=== PATIENT | male | born 1980 | race Caucasian/White ===

== ENCOUNTER 2016-07-17 05:59 | Outpatient (CLI) | payer OTHER ==
[~2016-07-17] VITALS: Ht 167.6 cm; Wt 109.1 kg
[~2016-07-17 05:59] MED LIST: AMPI500C9 PO; CIPR-225 PO; CIPR500T4 PO; ERTA1VIA3 IV; HYDR-3730 PO; HYDR-3816 PO; HYDR-757 PO; IBUP-2055 PO; L.AC1CAP6 PO; LEVO750T39 PO; LEVO750T6 PO; LEVO750T9 PO; LINE600T5 PO; METR500T PO; METR500T21 PO; NAPR500T3 PO; PROM25TA14 PO
--- OUTSIDE RECORDS SUMMARY | 2016-07-17 06:03 | XMS REPORT | Continuity of Care Document ---
Author Author [facility] Organization [facility] Address Unknown Phone Unavailable Care Team Providers Care Security Intern Name Role Phone STEFFI FRAGOSO MD PCP Insurance Providers Payer Name Policy Number Subscriber Name Relationship [employer] [place] [id number] Kathy Bang R 01 Advance Directives Directive Response Recorded Date/Time Advance Directives No 03/06/16 8:42am Health Care Power of Palliative Nurse No 03/06/16 8:42am Organ Donor Yes 03/06/16 8:42am Resuscitation Status Full Code 03/06/16 8:42am Problems Active Problems Medical Problem Onset Date Status Abdominal pain Unknown Acute Abdominal pain, left lower quadrant Unknown Acute Diverticulitis large intestine Unknown Acute Diverticulitis of sigmoid colon Unknown Acute Elevated liver enzymes Unknown Acute Leukocytosis Unknown Acute Nausea Unknown Acute Sigmoid diverticulitis Unknown Acute Medications Current Home Medications Medication Dose Units Route Directions Days/Qty Instructions Start Date Levofloxacin 750 Mg 750 Mg Oral Daily 10 Days 03/13/16 Ampicillin Trihydrate 500 Mg 500 Mg Oral Twice A Day 20 03/13/16 Hydrocodone/Acetaminophen 1 Each 1-2 Each Oral Every 4-6 Hours for Pain 40 03/13/16 Metronidazole 500 Mg 500 Mg Oral Twice A Day 10 Days 03/13/16 Past Home Medications Medication Directions Ordered Status Hydrocodone Bit/Acetaminophen 1 Each Tablet, 1 Ea Oral Every 6 Hours as needed for Severe Pain 10/30/14 Discontinued Ciprofloxacin Hcl 500 Mg Tablet, 500 Mg Oral Twice A Day 01/20/16 Discontinued Metronidazole 500 Mg Tablet, 500 Mg Oral Three Times A Day 01/20/16 Discontinued Ciprofloxacin Hcl 500 Mg Tablet, 500 Mg Oral Twice A Day 01/21/16 Discontinued Metronidazole 500 Mg Tablet, 500 Mg Oral Three Times A Day 01/21/16 Discontinued Naproxen 500 Mg Tablet, 500 Mg Oral Twice A Day With Meals as needed for Pain 01/21/16 Discontinued Hydrocodone/Acetaminophen 1 Each Tablet, 1-2 Tab Oral Every 6 Hours as needed for Pain 01/21/16 Discontinued Ibuprofen 200 Mg Tablet, 800 Mg Oral Every 4HRS as needed for Pain 01/21/16 Discontinued Promethazine Hcl (Phenergan Tablet) 25 Mg Tablet, 25 Mg Oral Three Times A Day as needed for Nausea/Vomiting 01/21/16 Discontinued Social History Social History Problem Response Recorded Date/Time Alcohol Use Denies Use 10/30/2014 9:52pm Recreational Drug Use No 10/30/2014 9:52pm Recent Foreign Travel No 03/06/2016 8:33am Sexually Transmitted Disease No 03/06/2016 8:38am HIV/AIDS No 03/06/2016 8:38am Smoking Status Never a Smoker 03/06/2016 8:42am Do you dip or chew tobacco? No 12/15/2014 9:18am Type Used Cigarettes 03/13/2016 11:28am Recent Hopitalizations Y 12/2015 FOR DIVERTIC 03/06/2016 8:38am Sexually Transmitted Disease No 03/06/2016 8:38am Query Response Start Date Stop Date Smoking Status Never a Smoker Hospital Discharge Instructions No hospital discharge instructions. Plan of Care Discharge Date 03/13/16 11:27am Disposition 01 HOME, SELF-CARE Instructions/Education Provided Diverticulitis (DC) Prescriptions See Medication Section Additional Instructions/Education APPOINTMENT WITH DR. BAUER THURSDAY NO HEAVY LIFTING, PUSHING, OR PULLING GREATER THAN 10# REGULAR DIET TOLERATED WET TO DRY DRESSING CHANGES TO ABD DAILY RAMON DRAIN EMPTY DAILY AND NEEDED Functional Status Query Response Date Recorded Patient Orientation Person Place Time Situation Normal For Age March 13, 2016 11:28am Comprehension Ability Understands Concepts March 13, 2016 9:25am Allergies, Adverse Reactions, Alerts No known allergies. Immunizations Name Given Type FLU TRIvalent 5 years - Adult 03/07/16 Administered Vital Signs Acute Vital Signs Vital Response Date/Time Temperature (Fahrenheit) 98.1 degrees F (97.6 - 99.5) 03/13/2016 8:00am Temperature (Calculated Celsius) 36.70682 degrees C (36.4 - 37.5) 03/13/2016 8:00am Temperature Source Tympanic 03/13/2016 8:00am Pulse Rate (adult) 110 bpm (60 - 90) 03/13/2016 8:00am Respiratory Rate 20 bpm (12 - 24) 03/13/2016 8:00am O2 Sat by Pulse Oximetry 97 % (88 - 100) 03/13/2016 8:00am Blood Pressure 136/92 mm Hg 03/13/2016 8:00am Blood Pressure Mean 107 mm Hg 03/13/2016 8:00am Pain Numeric Pain Scale 0-No Pain 03/13/2016 8:00am Height (Feet) 5 feet 03/06/2016 8:33am Height (Inches) 6.00 inches 03/06/2016 8:33am Height (Calculated Centimeters) 167.738212 cm 03/06/2016 8:33am Weight (Pounds) 257 pounds 03/06/2016 8:33am Weight (Ounces) 0.0 oz 03/06/2016 8:33am Weight (Calculated Grams) 481918.24 gm 03/06/2016 8:33am Weight (Calculated Kilograms) 116.594849 kilograms 03/06/2016 8:33am Calculated BMI 41.5 03/06/2016 8:33am Results Laboratory Results Test Name Result Units Flags Reference Collection Date/Time Result Date/ Time Comments White Blood Count 10.3 10^3/uL 4.3-11.0 03/12/2016 5:14am 03/12/2016 5: 18am Red Blood Count 3.53 10^6/uL L 4.35-5.85 03/12/2016 5:14am 03/12/2016 5: 18am Hemoglobin 10.6 G/DL L 13.3-17.7 03/12/2016 5:14am 03/12/2016 5:18am Hematocrit 33 % L 40-54 03/12/2016 5:14am 03/12/2016 5:18am Mean Corpuscular Volume 93 FL 80-99 03/12/2016 5:14am 03/12/2016 5: 18am Mean Corpuscular Hemoglobin 30 PG 25-34 03/12/2016 5:14am 03/12/2016 5: 18am Mean Corpuscular Hemoglobin Concent 32 G/DL 32-36 03/12/2016 5:14am 05/2016 5:18am Red Cell Distribution Width 12.9 % 10.0-14.5 03/12/2016 5:142015 5:18am Platelet Count 231 10^3/uL 130-400 03/12/2016 5:14am 03/12/2016 5:18am Mean Platelet Volume 10.1 FL 7.4-10.4 03/12/2016 5:14am 03/12/2016 5: 18am Neutrophils (%) (Auto) 80 % H 42-75 03/09/2016 6:03/09/2016 6:36am Lymphocytes (%) (Auto) 9 % L 12-44 03/09/2016 6:03/09/2016 6:36am Monocytes (%) (Auto) 10 % 0-12 03/09/2016 6:03/09/2016 6:36am Eosinophils (%) (Auto) 0 % 0-10 03/09/2016 6:03/09/2016 6:36am Basophils (%) (Auto) 0 % 0-10 03/09/2016 6:03/09/2016 6:36am Neutrophils # (Auto) 10.9 X 10^3 H 1.8-7.8 03/09/2016 6:03/09/2016 6 :36am Lymphocytes # (Auto) 1.3 X 10^3 1.0-4.0 03/09/2016 6:03/09/2016 6: 36am Monocytes # (Auto) 1.4 X 10^3 H 0.0-1.0 03/09/2016 6:03/09/2016 6: 36am Eosinophils # (Auto) 0.0 10^3/uL 0.0-0.3 03/09/2016 6:03/09/2016 6 :36am Basophils # (Auto) 0.0 10^3/uL 0.0-0.1 03/09/2016 6:03/09/2016 6: 36am Sodium Level 138 MMOL/L 135-145 03/11/2016 8:00am 03/11/2016 8:29am Potassium Level 3.6 MMOL/L 3.6-5.0 03/11/2016 8:00am 03/11/2016 8:29am Chloride Level 105 MMOL/L 98-107 03/11/2016 8:00am 03/11/2016 8:29am Carbon Dioxide Level 20 MMOL/L L 21-32 03/11/2016 8:00am 03/11/2016 8: 29am Anion Gap 13 MMOL/L 5-14 03/11/2016 8:00am 03/11/2016 8:29am Blood Urea Nitrogen 10 MG/DL 7-18 03/11/2016 8:00am 03/11/2016 8:29am Creatinine 0.72 MG/DL 0.60-1.30 03/11/2016 8:00am 03/11/2016 8:29am BUN/Creatinine Ratio 14 03/11/2016 8:00am 03/11/2016 8:29am Estimat Glomerular Filtration Rate > 60 03/11/2016 8:00am 2015 8:29am GFR INTERPRETIVE DATA UNITS FOR ESTIMATED GFR (eGFR): mL/min/1.73 M2 REFERENCE RANGE FOR ESTIMATED GFR (eGFR) eGFR NORMAL eGFR >60 MODERATELY DECREASED eGFR 30-59 SEVERLY DECREASED eGFR 15-29 KIDNEY FAILURE <15 (OR DIALYSIS) Glucose Level 98 MG/DL 70-105 03/11/2016 8:00am 03/11/2016 8:29am Glucometer 87 MG/DL 70-110 03/11/2016 12:18am 03/11/2016 12:25am Calcium Level 8.4 MG/DL L 8.5-10.1 03/11/2016 8:00am 03/11/2016 8:29am Troponin I < 0.30 NG/ML <0.30 03/11/2016 6:20pm 03/11/2016 6:53pm Troponin I < 0.30 NG/ML <0.30 03/12/2016 1:20am 03/12/2016 2:04am Lactic Acid Level 1.6 MMOL/L 0.5-2.0 03/08/2016 11:37pm 03/08/2016 11: 59pm Vancomycin Level Trough 19.1 UG/ML 10.0-20.0 03/12/2016 7:40am 2015 8:11am Pending Laboratory Results Test Name Collection Date/Time Microbiology Results Procedure Source Result Collection Date/Time Result Date/Time Blood Culture Peripheral, Left Wrist No growth 03/08/2016 11:51pm 2015 3:29pm Sputum Culture Sputum, Expectorated STAPHYLOCOCCUS AUREUS 03/08/2016 11: 13pm 03/10/2016 7:27am Blood Culture Port, Central Line No growth 03/08/2016 11:55pm 03/09/2016 3: 29pm Anaerobic Culture Incision, Abdomen No anaerobes isolated 03/09/2016 3:00pm 03/12/2016 7:29pm Wound Culture Incision, Abdomen ENTEROCOCCUS FAECALIS 03/09/2016 3:00pm 04/2016 7:17am ESCHERICHIA COLI 03/09/2016 3:00pm 03/11/2016 7:17am Procedures Procedure Status Date Provider(s) Resection of colon Completed 03/06/16 KAYODE BAUER MD Insertion of triple lumen catheter Completed 03/06/16 KAYODE BAUER MD Tracing only of electrocardiogram Completed 03/11/16 KAYODE BAUER MD Encounters Encounter Location Arrival/Admit Date Discharge/Depart Date Attending Provider Discharged Inpatient [facility] 03/06/16 7:27am 11:27am KAYODE BAUER MD Departed Clinic [facility] 02/28/16 12:13pm 02/28/16 3: 31pm KAYODE BAUER MD
== END 2016-07-17 13:46 ==
LOC: PREOP 05:59
PROVIDERS: ATTEND Surgery
DX: Z01.818 Encounter for other preprocedural examination (principal); K57.92 Diverticulitis of intestine, part unspecified, without perforation or abscess without bleeding

== ENCOUNTER 2016-07-21 06:59 | Day surgery (SDC) | payer OTHER ==
[~2016-07-21] VITALS: Ht 167.6 cm; Wt 109.1 kg
--- OUTSIDE RECORDS SUMMARY | 2016-07-21 07:03 | XMS REPORT | Continuity of Care Document ---
Author Author [facility] Organization [facility] Address Unknown Phone Unavailable Care Team Providers Care Receptionist Secretary Name Role Phone STEFFI FRAGOSO MD PCP Insurance Providers Payer Name Policy Number Subscriber Name Relationship [employer] [place] [id number] Kathy Bang R 01 Advance Directives Directive Response Recorded Date/Time Advance Directives No 03/06/16 8:42am Health Care Power of Hi Lo Driver No 03/06/16 8:42am Organ Donor Yes 03/06/16 [...] - 99.5) 03/13/2016 8:00am Temperature (Calculated Celsius) 36.33133 degrees C (36.4 - 37.5) 03/13/2016 8:00am [...] 6.00 inches 03/06/2016 8:33am Height (Calculated Centimeters) 167.515267 cm 03/06/2016 8:33am Weight (Pounds) 257 pounds 03/06/2016 8:33am Weight (Ounces) 0.0 oz 03/06/2016 8:33am Weight (Calculated Grams) 366594.24 gm 03/06/2016 8:33am Weight (Calculated Kilograms) 116.006692 kilograms 03/06/2016 8:33am Calculated BMI 41.5 03/06/2016 [...] Discharge/Depart Date Attending Provider Discharged Inpatient [facility] 03/06/16 7:27am 11:27am KAYODE BAUER MD Departed Clinic [facility] 02/28/16 12:13pm 02/28/16 3: 31pm KAYODE BAUER MD
--- OUTSIDE RECORDS SUMMARY | 2016-07-21 07:04 | XMS REPORT | Continuity of Care Document ---
Author Author [facility] Organization [facility] Address Unknown Phone Unavailable Care Team Providers Care Educational Therapy Teacher Name Role Phone STEFFI FRAGOSO MD PCP Insurance Providers Payer Name Policy Number Subscriber Name Relationship [employer] [place] [id number] Kathy Bang R 01 Advance Directives Directive Response Recorded Date/Time Advance Directives No 03/06/16 8:42am Health Care Power of Obstetrical Anesthesiologist No 03/06/16 8:42am Organ Donor Yes 03/06/16 [...] - 99.5) 03/13/2016 8:00am Temperature (Calculated Celsius) 36.82555 degrees C (36.4 - 37.5) 03/13/2016 8:00am [...] 6.00 inches 03/06/2016 8:33am Height (Calculated Centimeters) 167.985468 cm 03/06/2016 8:33am Weight (Pounds) 257 pounds 03/06/2016 8:33am Weight (Ounces) 0.0 oz 03/06/2016 8:33am Weight (Calculated Grams) 441731.24 gm 03/06/2016 8:33am Weight (Calculated Kilograms) 116.673610 kilograms 03/06/2016 8:33am Calculated BMI 41.5 03/06/2016 [...] Discharge/Depart Date Attending Provider Discharged Inpatient [facility] 03/06/16 7:27am 11:27am KAYODE BAUER MD Departed Clinic [facility] 02/28/16 12:13pm 02/28/16 3: 31pm KAYODE BAUER MD
[2016-07-21] MEDS ORDERED: NS IV 500 ML 500 ML IV SCH (07:15)
[2016-07-21] MEDS ORDERED: FLUMAZENIL (ROMAZICON) 0.1 MG/ML 5 ML VIAL INJ PRN (07:15)
[2016-07-21] MEDS ORDERED: NS IV 500 ML 500 ML ONE (07:15)
[2016-07-21] MEDS ORDERED: NALOXONE 0.4 MG/ML 1 ML (NARCAN) VIAL IVP PRN (07:15)
[2016-07-21 07:30] VITALS: BP 128/79
[2016-07-21 07:32] VITALS: BP 128/79
[2016-07-21] MEDS ORDERED: MIDAZOLAM 2 MG/2 ML (VERSED) VIAL ONE ×3 (07:51)
[2016-07-21] MEDS ORDERED: fentaNYL INJECTION 100 MCG/2 ML AMP ONE ×2 (07:51)
[2016-07-21] MEDS: fentaNYL INJECTION 100 MCG/2 ML AMP IVP PRN ×2 (08:03→08:15)
[2016-07-21] MEDS: MIDAZOLAM 2 MG/2 ML (VERSED) VIAL IVP PRN ×3 (08:05→08:16)
--- NOTE | 2016-07-21 08:31 | Pre-Op Note & Conscious Sedat ---
Pre-Operative Progress Note H&P Reviewed The H&P was reviewed, patient examined and no changes noted. Date H&P Reviewed: Jul 21, 2016 Time H&P Reviewed: 07:51 Pre-Op Diagnosis: diverticulosis. Anastomotic leak, resolved Conscious Sedation Pre-Proced ASA Class: 1 Airway Mallampati Classification: ([place] appropriate class) I. II. III, IV Lungs Heart ASA score ASA 1: a normal healthy patient ASA 2: a patient with a mild systemic disease (mid diabetes, controlled hypertension, obesity ASA 3: a patient with a severe systemic disease that limits activity (angina , COPD, prior Myocardial infarction) ASA 4: a patient with an incapacitating disease that is a constant threat to life (CHF, renal failure) ASA 5: a moribund patient not expected to survive 24 hrs. (ruptured aneurysm) ASA 6: a declared brain patient whose organs are being harvested. For emergent operations, add the letter E after the classification Grade 1 Sedation Plan: Discussed options with patient/fam Note The patient is an appropriate candidate to undergo the planned procedure, sedation, and anesthesia. The patient immediately re-assessed prior to indication. JOLENE MCCRAY MD Jul 21, 2016 8:31 am
--- NOTE | 2016-07-21 08:33 | Progress Note-Post Operative ---
Post-Operative Progess Note Pre-Operative Diagnosis diverticulosis. Anastomotic leak, resolved Post-Operative Diagnosis occasional diverticulosis. Rectal stump 25 cm long Post-Op Procedure Note Date of Procedure: Jul 21, 2016 Name of Procedure: colonoscopy to cecum via colostomy Flexible sigmoidoscopy of rectal stump Anesthesia Type sedation JOLENE MCCRAY MD Jul 21, 2016 8:33 am
[2016-07-21 08:35] VITALS: BP 116/70
--- NOTE | 2016-07-21 08:35 | Discharge Inst-Simple/Standard ---
Discharge Inst-Standard Discharge Medications New, Converted or Re-Newed RX: Other Patient Instructions/Follow Up Plan of Care/Instructions/FU: follow-up with rodrigon a week Activity as Tolerated: Yes Discharge Diet: No Restrictions JOLENE MCCRAY MD Jul 21, 2016 8:35 am
[2016-07-21 09:10] VITALS: BP 124/88
[2016-07-21 09:20] VITALS: BP 124/88
--- NOTE | 2016-07-21 11:42 | PROCEDURE REPORT ---
PROCEDURE PHYSICIAN: JOLENE MCCRAY DATE OF PROCEDURE: 07/21/2016 PROCEDURE: 1. Colonoscopy via colostomy. 2. Flexible sigmoidoscopy of rectal stump. SURGEON: Dr. Mccray. INDICATION FOR THE PROCEDURE: This gentleman underwent laparoscopic sigmoid resection to address complicated diverticular disease in March 2016. He developed anastomotic leak, requiring fecal diversion with a left lower quadrant colostomy. The anastomosis was obviously taken down. He is being prepared for reversal of colostomy and therefore, colonoscopy was felt to be reasonable. Informed consent was obtained after reviewing the procedure in detail. DESCRIPTION OF THE PROCEDURE: 1. COLONOSCOPY VIA COLOSTOMY: He was placed supine on the gurney and conscious sedation was achieved using Versed and fentanyl. Digital examination of the colostomy was unremarkable. The colonoscope was then introduced via the colostomy all the way to the cecum. The quality of bowel preparation was excellent. The scope was then withdrawn slowly and the mucosa examined in a systematic fashion. FINDINGS: 1. Occasional diverticulae involving the descending colon and the right colon. 2. No polyps were found. He was then placed in left lateral decubitus position to complete the examination of the rectal stump. 2. FLEXIBLE SIGMOIDOSCOPY A RECTAL STUMP: Rectal examination was unremarkable. The flexible colonoscope was then introduced into the rectum and advanced to about 25 cm where sutures from the dehisced anastomosis were encountered. The scope was then withdrawn slowly and the mucosa examined in a systematic fashion. FINDINGS: 1. Inspissated mucus and solid fecal material as would be expected in a disused stump. 2. No other abnormality was encountered. He tolerated the procedure well and was taken back to the nursing area in a stable condition. IMPRESSION: 1. Diverticulosis. 2. Previous anastomotic dehiscence. Will be prepared for reversal, possibly using minimally invasive approach. Job ID: [id number] Dictated Date: 07/21/2016 08:29:02 Roof Promenade Tile Setter Date: 07/21/2016 11:35:50 / sonam CHATMAN
== END 2016-07-21 09:20 | disposition home or self-care (01) ==
LOC: ENDO 06:59
PROVIDERS: ATTEND Surgery
DX: K57.90 Diverticulosis of intestine, part unspecified, without perforation or abscess without bleeding (principal)

== ENCOUNTER → 2016-08-13 | Outpatient (CLI) | payer OTHER ==
[~2016-08-13] MED LIST changes: +CATHETER FLUSH 10 ML SYR IV PRN; +HYDR-3812 PO; +IOHEXOL 350 MG/ML 100 ML (OMNIPAQUE 350) VIAL IV ONE; +KETO10TA PO; +NS 100 ML (IVPB) BAG IV ONE; +OXYC-197 PO; +OXYC-202 PO; +OXYC-471 PO; +POLY17PO6 PO; +ZOLP10TA5 PO
--- OUTSIDE RECORDS SUMMARY | 2016-08-13 15:10 | XMS REPORT | Continuity of Care Document ---
Author Author [facility] Organization [facility] Address Unknown Phone Unavailable Care Team Providers Care Pewter Finisher Name Role Phone STEFFI FRAGOSO MD PCP Insurance Providers Payer Name Policy Number Subscriber Name Relationship [employer] [place] [id number] Kathy Bang R 01 Advance Directives Directive Response Recorded Date/Time Advance Directives No 03/06/16 8:42am Health Care Power of Landscaper Helper No 03/06/16 8:42am Organ Donor Yes 03/06/16 [...] - 99.5) 03/13/2016 8:00am Temperature (Calculated Celsius) 36.34539 degrees C (36.4 - 37.5) 03/13/2016 8:00am [...] 6.00 inches 03/06/2016 8:33am Height (Calculated Centimeters) 167.271575 cm 03/06/2016 8:33am Weight (Pounds) 257 pounds 03/06/2016 8:33am Weight (Ounces) 0.0 oz 03/06/2016 8:33am Weight (Calculated Grams) 670954.24 gm 03/06/2016 8:33am Weight (Calculated Kilograms) 116.613202 kilograms 03/06/2016 8:33am Calculated BMI 41.5 03/06/2016 [...] Discharge/Depart Date Attending Provider Discharged Inpatient [facility] 03/06/16 7:27am 11:27am KAYODE BAUER MD Departed Clinic [facility] 02/28/16 12:13pm 02/28/16 3: 31pm KAYODE BAUER MD
--- NOTE | 2016-08-13 16:14 | Diagnostic Imaging Report ---
PROCEDURE: CT abdomen and pelvis with contrast. TECHNIQUE: Multiple contiguous axial images were obtained through the abdomen and pelvis after administration of intravenous contrast. INDICATION: Abdominal pain. CONTRAST: 100 mL of Omnipaque 350 is administered intravenously. Patient has had diverticulitis with prior partial colectomy and colostomy placement. FINDINGS: The lung bases appear generally clear with minimal atelectasis. The liver demonstrates no focal lesion. There is diffuse hepatic steatosis. The spleen is not enlarged. The pancreas and the adrenals appear unremarkable. Cholecystectomy clips are seen. The kidneys demonstrate symmetric enhancement and contrast excretion. There is no hydronephrosis. The abdominal aorta is normal in caliber. No para-aortic significantly enlarged lymph nodes seen. There is a colostomy in the left lower quadrant with an adjacent fat-containing parastomal hernia. There is also a wide-neck Spigelian hernia seen in the left lower quadrant lateral to the left rectus abdominis muscle. There is also divarication of the recti with prominent bulge of the anterior abdominal wall inferiorly mimicking a hernia. A tiny fat-containing umbilical hernia is seen. There is no bowel obstruction. Sutures in the distal sigmoid colon are seen. There is no free peritoneal air or fluid noted. The osseous structures demonstrate no significant abnormality. Sclerotic focus measuring 7 mm in the left sacral ala is presumably a bony island. IMPRESSION: 1. There is a fat-containing parastomal hernia seen. Also more inferiorly and laterally to the colostomy, there is a small bowel-containing Spigelian hernia. 2. There is also a tiny fat-containing umbilical hernia. The abdominal wall below the umbilicus demonstrates laxity and divarication of the recti with bulging of the abdominal contents mimicking a ventral hernia. Dictated by: Dictated on workstation # [id number]
== END ==
LOC: RAD 15:07
PROVIDERS: ATTEND Surgery
DX: K42.9 Umbilical hernia without obstruction or gangrene (principal); K43.9 Ventral hernia without obstruction or gangrene; K43.5 Parastomal hernia without obstruction or gangrene; Z93.3 Colostomy status
CPT/HCPCS: 74177

== ENCOUNTER 2016-08-18 08:15 | Inpatient (IN) | payer OTHER ==
[~2016-08-18] VITALS: Ht 167.6 cm; Wt 109.1 kg
[~2016-08-18 08:15] MED LIST changes: -CATHETER FLUSH 10 ML SYR IV PRN; -HYDR-3812 PO; -IOHEXOL 350 MG/ML 100 ML (OMNIPAQUE 350) VIAL IV ONE; -KETO10TA PO; -NS 100 ML (IVPB) BAG IV ONE; -OXYC-197 PO; -OXYC-202 PO; -OXYC-471 PO; -POLY17PO6 PO; -ZOLP10TA5 PO
[2016-09-03] VITALS (11 sets, daily range): BP systolic 104–128; BP diastolic 58–86
[2016-09-03] MEDS: LACTATED RINGERS 1,000 ML IV PRN ×4 (06:15→13:31)
[2016-09-03] MEDS ORDERED: metroNIDAZOLE 500MG/100ML IVPB 100 ML ONE (06:21)
[2016-09-03] MEDS ORDERED: ceFAZolin 2 GM/50 ML NS 50 ML IV ONE (06:21)
[2016-09-03 06:31] LABS: MEAN PLATELET VOLUME 10.3 FL (7.4-10.4); RED BLOOD COUNT 5.67 10^6/uL (4.35-5.85); WHITE BLOOD COUNT 9.6 10^3/uL (4.3-11.0)
[2016-09-03] MEDS ORDERED: MIDAZOLAM 2 MG/2 ML (VERSED) VIAL ONE (06:50)
[2016-09-03] MEDS ORDERED: proPOfol 200 MG/20 ML (DIPRIVAN) VIAL IV ONE (06:50)
[2016-09-03] MEDS ORDERED: fentaNYL INJECTION 250 MCG/5 ML AMP ONE ×2 (06:50→11:28)
[2016-09-03] MEDS ORDERED: ONDANSETRON 4 MG/2 ML (SDV) Z0FRAN ONE (06:50)
[2016-09-03] MEDS ORDERED: DEXAMETHASONE PF 10 MG/ML (DECADRON) VIAL ONE (06:50)
[2016-09-03] MEDS ORDERED: LIDOCAINE PF 2% 10 ML (XYLOCAINE) AMP ONE (06:50)
[2016-09-03] MEDS ORDERED: ROCURONIUM 50 MG/5 ML (ZEMURON) VIAL IV ONE ×2 (06:50→09:12)
[2016-09-03] MEDS ORDERED: ceFAZolin 2 GM/NS 50 ML IV ONE (07:00)
[2016-09-03] MEDS ORDERED: metroNIDAZOLE 500 MG/100 ML IVPB (PRE-MIX) IV ONE (07:00)
[2016-09-03] MEDS ORDERED: BUP/EPI 0.25% 1:200,000 (MARCAINE) 30 ML VIAL ONE (07:35)
--- NOTE | 2016-09-03 07:49 | Progress Note-Pre Operative ---
Pre-Operative Progress Note H&P Reviewed The H&P was reviewed, patient examined and no changes noted. Date H&P Reviewed: Sep 03, 2016 Time H&P Reviewed: 07:49 Pre-Operative Diagnosis: Resolved diverticular disease. Para-stomal hernia JOLENE MCCRAY MD Sep 03, 2016 7:49 am
[2016-09-03] MEDS ORDERED: LACTATED RINGERS 1,000 ML IV ONE ×2 (09:12→10:01)
[2016-09-03] MEDS ORDERED: ceFAZolin 1,000 MG (ANCEF) VIAL ONE (11:42)
[2016-09-03] MEDS ORDERED: ESMOLOL 100 MG/10 ML (BREVIBLOC) VIAL ONE (12:10)
[2016-09-03] MEDS ORDERED: SEVOFLURANE (ULTANE) 15 ML INHAL SOLN ONE ×3 (12:19→12:50)
[2016-09-03] MEDS ORDERED: NEOSTIGMINE (BLOXIVERZ ) 1 MG/1ML 10 ML VIAL ONE (12:31)
[2016-09-03] MEDS ORDERED: GLYCOPYRROLATE 0.2 MG/ML (ROBINUL) 2 ML VIAL ONE (12:31)
[2016-09-03] MEDS ORDERED: ceFAZolin INJECTION 1,000 MG in NS (IVPB) 50 ML IV ONE (12:45)
--- NOTE | 2016-09-03 13:03 | Progress Note-Post Operative ---
Post-Operative Progess Note Surgeon (s)/Forensic Science Technician (s) Surgeon JOLENE MCCRAY MD Forensic Science Technician: first leveler Debora Pre-Operative Diagnosis Resolved diverticular disease. Para-stomal hernia Post-Operative Diagnosis same Post-Op Procedure Note Date of Procedure: Sep 03, 2016 Name of Procedure Performed: robotic assisted reversal of colostomy Primary repair of parastomal hernia Description of the Procedure: see operative note Findings of the Procedure multiple adhesions involving small bowel and omentum. Large parastomal hernia Anesthesia Type Gen. Estimated blood loss (mL): 100 mL Specimen(s) collected/removed rectal stump JOLENE MCCRAY MD Sep 03, 2016 1:03 pm
[2016-09-03] MEDS ORDERED: LACTATED RINGERS 1,000 ML IV PRN (13:05)
[2016-09-03] MEDS ORDERED: ONDANSETRON 4 MG/2 ML (SDV) Z0FRAN IVP PRN (13:15)
[2016-09-03] MEDS ORDERED: morphine INJ 10 MG/ML 1ML (SYR OR VIAL) ONE (13:18)
[2016-09-03] MEDS ORDERED: HYDROmorphone (DILAUDID) 2 MG/ML VIAL IV PRN (13:30)
[2016-09-03] MEDS ORDERED: ONDANSETRON 4 MG/2 ML (SDV) Z0FRAN IV PRN (13:30)
[2016-09-03] MEDS ORDERED: morphine INJ 10 MG/ML 1ML (SYR OR VIAL) IV PRN (13:30)
[2016-09-03] MEDS: fentaNYL INJECTION 100 MCG/2 ML AMP IV PRN ×5 (15:04→21:08)
[2016-09-03] MEDS: ENOXAPARIN 40 MG/0.4 ML (LOVENOX) SYR SC SCH (16:11)
[2016-09-03] MEDS: LACTATED RINGERS 1,000 ML IV SCH (19:27)
[2016-09-03] MEDS: ceFAZolin 2 GM/50 ML NS 50 ML IV SCH (20:18)
[2016-09-03] MEDS: metroNIDAZOLE 500MG/100ML IVPB 100 ML IV SCH (21:14)
[2016-09-04] VITALS (9 sets, daily range): BP systolic 91–118; BP diastolic 57–70
[2016-09-04] MEDS: fentaNYL INJECTION 100 MCG/2 ML AMP IV PRN ×9 (00:37→18:22)
[2016-09-04 04:26] LABS: BASOPHILS % (AUTO) 0 % (0-10); EOSINOPHILS % (AUTO) 0 % (0-10); LYMPHOCYTES # (AUTO) 1.1 X 10^3 (1.0-4.0); LYMPHOCYTES % (AUTO) 9 % (12-44); MEAN CORPUSCULAR HEMOGLOBIN 30 PG (25-34); MEAN CORPUSCULAR HGB CONC 34 G/DL (32-36); MEAN CORPUSCULAR VOLUME 88 FL (80-99); MONOCYTES # (AUTO) 1.5 X 10^3 (0.0-1.0); MONOCYTES % (AUTO) 12 % (0-12); NEUTROPHILS # (AUTO) 10.4 X 10^3 (1.8-7.8); NEUTROPHILS % (AUTO) 80 % (42-75); PLATELET COUNT 238 10^3/uL (130-400); RED BLOOD COUNT 4.84 10^6/uL (4.35-5.85); RED CELL DISTRIBUTION WIDTH 13.6 % (10.0-14.5); WHITE BLOOD COUNT 13.1 10^3/uL (4.3-11.0)
[2016-09-04] MEDS: ceFAZolin 2 GM/50 ML NS 50 ML IV SCH (04:32)
[2016-09-04 04:48] LABS: ANION GAP 8 MMOL/L (5-14); BLOOD UREA NITROGEN 14 MG/DL (7-18); BUN/CREATININE RATIO 16; CALCIUM 8.7 MG/DL (8.5-10.1); CARBON DIOXIDE 26 MMOL/L (21-32); CHLORIDE 105 MMOL/L (98-107); CREATININE SERUM 0.89 MG/DL (0.60-1.30); GFR ESTIMATED > 60; GLUCOSE 132 MG/DL (70-105); MAGNESIUM 1.9 MG/DL (1.8-2.4); POTASSIUM 4.4 MMOL/L (3.6-5.0); SODIUM 139 MMOL/L (135-145)
[2016-09-04] MEDS: metroNIDAZOLE 500MG/100ML IVPB 100 ML IV SCH (05:14)
[2016-09-04] MEDS: inSUlin (REGULAR) HUMAN 1 UNIT/0.01 ML (CHARGE PER UNIT) SC SCH ×3 (06:00→11:37)
[2016-09-04] MEDS ORDERED: MAGNESIUM 1 GM/100 ML IVPB 100 ML IV SCH (06:00)
[2016-09-04] MEDS ORDERED: POTASSIUM CL 10MEQ/50ML IVPB 50 ML IV SCH (06:00)
[2016-09-04] MEDS ORDERED: KCL 20 MEQ TAB (K-DUR) PO SCH (06:00)
[2016-09-04] MEDS: LACTATED RINGERS 1,000 ML IV SCH ×4 (06:33→21:21)
[2016-09-04] MEDS ORDERED: ZOLP10TA5 PO (08:55)
--- NOTE | 2016-09-04 10:14 | OPERATIVE REPORT ---
PROCEDURE PHYSICIAN: JOLENE MCCRAY DATE OF PROCEDURE: 09/03/2016 PREOPERATIVE DIAGNOSIS: 1. Resolved sigmoid diverticulitis. 2. Postoperative anastomotic leak, requiring temporary colostomy. 3. Paracolostomy hernia. POSTOPERATIVE DIAGNOSIS: 1. Resolved sigmoid diverticulitis. 2. Postoperative anastomotic leak, requiring temporary colostomy. 3. Paracolostomy hernia. OPERATION: 1. Robotic assisted reversal of colostomy with primary anastomosis. 2. Primary repair of parastomal hernia without mesh. SURGEON: Daniel ANESTHESIA: General anesthesia. BLOOD LOSS: 100 mL. FLUIDS: 3 liters of crystalloids. TYPE OF WOUND: Type III (contaminant wound). INDICATION FOR THE PROCEDURE: This gentleman had undergone laparoscopic sigmoid colon resection to manage diverticular disease in March 2016. He suffered anastomotic dehiscence, requiring fecal diversion using colostomy. Over the last 2 months, he has also developed a large parastomal hernia. After an adequate preparation, he was offered reversal using minimally invasive technique with robotic assistance. Concomitant repair of the parastomal hernia was also offered. Informed consent was obtained after reviewing the operative details and complications of postoperative wound infection further anastomotic leak requiring temporary ileostomy, intra-abdominal abscess and recurrence of his hernia. DESCRIPTION OF PROCEDURE: He underwent mechanical bowel preparation including oral antibiotics the day before surgery. He was initially placed supine on the operative table and general anesthesia induced. 2 grams of Ancef and 500 mg of Flagyl were administered intravenously as prophylaxis against wound infection. An additional dose of Ancef was administered at the end of the operation (4 hours apart). Subsequently, he was placed in combined lithotomy position, his legs being supported on stirrups. A Rosenthal catheter was placed to monitor urine output during the perioperative period. Abdomen was prepared and draped in the usual sterile manner. Pneumoperitoneum was established using a Veress needle introduced over the right subcostal margin. A 12 mm trocar was placed to an intra-abdominal pressure maintained at 15 mmHg. Anatomy was visualized using the high definition, 3 dimensional laparoscope associated with da Megan system. Multiple adhesions involving the small bowel and omentum were found along the undersurface of the lower midline scar and around the colostomy. Under direct view, I placed an 8 mm cannula over the right lower quadrant followed by a similar cannula over the epigastric region. A 3rd 8 mm cannula was placed over the left side of the abdomen, in anticipation of using the robotic 3rd arm. The robotic system was then docked in place. Prior to this, the patient was placed in slight Trendelenburg position. Adhesions were taken down using robotic scissors with minimal difficulty. A very small serosal tear was repaired using 3-0 Vicryl suture with robotic assistance. Once adhesions were taken down, rectal stump was identified. Air was insufflated using a rigid proctoscope. There was an open staple end and the stump. Therefore, the proximal end of the rectal stump was fashioned and transected with a robotic 3.5 mm stapler. Subsequently, it was found to be airtight by insufflation with the rigid proctoscope. We, then turned our attention to the parastomal hernia. Omentum and multiple loops of small bowel contained within the hernia were taken down by sharp dissection. Adhesions along the left upper quadrant were also taken down, to allow mobilization of the descending colon without any tension. At this point, pneumoperitoneum was deflated and the colostomy excised from the skin area. The incision over the colostomy was extended laterally to allow this. The anvil of a 25 mm EEA stapler was then secured to the descending colon using a 2-0 PDS pursestring suture. It was then introduced into the peritoneal cavity. In view of the presence of a large parasternal hernia, I elected to use a gel port device and use a hand assist technique, an end to end anastomosis was created between the rectal stump and the proximal colo nusing a 25 mm EEA stapler. The integrity of the anastomosis was confirmed by air insufflation with a rigid proctoscope and filling up the pelvis with sterile saline. There was no leak. Omentum was then brought down in the pelvis and placed over the anastomosis. Pneumoperitoneum was then deflated and the fascial edges over the parastomal hernia were approximated using a continuous suture with number 2 Prolene. Subcutaneous tissue over this incision was closed using number 1 PDS. The skin was left open in anticipation of wound infection. The laparoscopic incisions were then closed using 4-0 Vicryl, in a subcuticular fashion. 0.25% Marcaine with epinephrine was infiltrated along the incisions, both preemptively and at the conclusion of the operation. He tolerated the procedure well, was extubated in the operating room and taken to the recovery room in a stable condition. Omro, sponges, and instruments were correct at the end of the operation. Job ID: [id number] Dictated Date: 09/03/2016 13:00:29 Commercial Green Building Designer Date: 09/04/2016 10:00:47 / miguel ángel CHATMAN
[2016-09-04] MEDS: METOCLOPRAMIDE INJ 10 MG/2 ML (REGLAN) IVP SCH ×3 (11:43→23:47)
[2016-09-04] MEDS ORDERED: KETOROLAC 30 MG/ML VIAL IVP NR (13:00)
--- NOTE | 2016-09-04 13:08 | Progress Note-Standard ---
Standard Progress Note Progress Notes/Assess & Plan Progress/Assessment & Plan 09/04/16:doing well. Vital signs stable. Pain control reasonable. Could be transferred to the floor Final Diagnosis diverticular disease. Parastomal hernia. JOLENE MCCRAY MD Sep 04, 2016 1:08 pm
--- NOTE | 2016-09-04 13:52 | Anesthesia-General Post-Op ---
General Patient Condition Mental Status/LOC: Same as Preop Cardiovascular: Satisfactory Nausea/Vomiting: Absent Respiratory: Satisfactory Pain: Controlled Complications: Absent Post Op Complications Complications None Follow Up Care/Instructions Patient Instructions None needed. Anesthesia/Patient Condition Patient Condition Patient is doing well, no complaints, stable vital signs, no apparent adverse anesthesia problems. No complications reported per nursing. D/C home per [facility] [place], [place] Criteria: No DAMIÁN GUZMAN CRNA Sep 04, 2016 13:52
[2016-09-04] MEDS: ENOXAPARIN 40 MG/0.4 ML (LOVENOX) SYR SC SCH (14:52)
[2016-09-04] MEDS ORDERED: KETOROLAC 15 MG/ML VIAL IVP PRN ×2 (19:00)
[2016-09-05] MEDS: fentaNYL INJECTION 100 MCG/2 ML AMP IV PRN ×6 (00:19→23:12)
[2016-09-05 00:45] VITALS: BP 102/58
[2016-09-05 04:40] VITALS: BP 113/58
[2016-09-05] MEDS: METOCLOPRAMIDE INJ 10 MG/2 ML (REGLAN) IVP SCH ×4 (05:10→23:12)
[2016-09-05] MEDS: LACTATED RINGERS 1,000 ML IV SCH (05:10)
[2016-09-05 08:00] VITALS: BP 113/59
[2016-09-05] MEDS ORDERED: ANTACID SUSP 30 ML UDC (MYLANTA) ONE (09:51)
[2016-09-05] MEDS ORDERED: ANTACID SUSP 30 ML UDC (MYLANTA) PO NR (09:52)
[2016-09-05] MEDS ORDERED: CATHETER FLUSH 10 ML SYR IV PRN (10:15)
--- NOTE | 2016-09-05 11:24 | Progress Note-Standard ---
Standard Progress Note Progress Notes/Assess & Plan Progress/Assessment & Plan 09/04/16:doing well. Vital signs stable. Pain control reasonable. Could be transferred to the floor 09/05/16: No new concerns. Colostomy wound looks healthy. Has not passed flatus. Vitals stable. Final Diagnosis Diverticular disease with para-stomal hernia JOLENE MCCRAY MD Sep 05, 2016 11:24 am
[2016-09-05] MEDS ORDERED: HYDROcodone/APAP 5 MG/325 MG (LORTAB) TAB PO NR (11:30)
[2016-09-05 11:52] VITALS: BP 118/60
[2016-09-05] MEDS: D5 1/2 NS W/KCL 20 MEQ/L 1,000 ML IV SCH ×2 (11:54→22:15)
[2016-09-05] MEDS: ENOXAPARIN 40 MG/0.4 ML (LOVENOX) SYR SC SCH (15:26)
[2016-09-05 16:40] VITALS: BP 122/76
[2016-09-05] MEDS ORDERED: ACETAMINOPHEN 325 MG TABLET/CAPLET (TYLENOL) PO PRN (17:00)
[2016-09-05] MEDS: HYDROcodone/APAP 5 MG/325 MG (LORTAB) TAB PO PRN ×2 (19:27→23:12)
[2016-09-05 19:30] VITALS: BP 132/79
[2016-09-06] VITALS: BP 119/74
[2016-09-06] MEDS: HYDROcodone/APAP 5 MG/325 MG (LORTAB) TAB PO PRN ×5 (03:44→21:11)
[2016-09-06 04:10] VITALS: BP 120/63
[2016-09-06] MEDS: METOCLOPRAMIDE INJ 10 MG/2 ML (REGLAN) IVP SCH ×4 (06:20→23:08)
--- NOTE | 2016-09-06 08:07 | Progress Note (SOAP) ---
Subjective Subjective 36 yo M s/p 3 days from abdominal surgery- no complaints or overnight events. No concerns from nursing staff. Pt says he is feeling better. Review of Systems General: No Chills, No Night Sweats HEENT: No Head Aches Pulmonary: No Dyspnea, No Cough Cardiovascular: No: Chest Pain, Palpitations Gastrointestinal: Abdominal Pain, No: Nausea, Vomiting Genitourinary: No Dysuria, No Frequency Musculoskeletal: No: neck pain, shoulder pain Neurological: No: Numbness, Weakness Objective Exam Vital Signs Vital Sign - Last 12Hours 09/03/16 09/03/16 06:15 14:25 Temp 97.8 Pulse 71 Resp 18 B/P (MAP) 122/73 Pulse Ox 95 O2 Delivery Room Air O2 Flow Rate 4.00 Capillary Refill : General Appearance: No Apparent Distress, WD/WN HEENT: PERRL/EOMI Neck: Supple Respiratory: Chest Non Tender, Lungs Clear, Normal Breath Sounds, No Accessory Muscle Use, No Respiratory Distress Cardiovascular: Regular Rate, Rhythm, No Edema Gastrointestinal: No Abnormal Bowel Sounds, No Distended, Other (bandage on abdomen) Extremity: Normal Inspection, Normal Range of Motion Neurologic/Psychiatric: Alert, Oriented x3, Depressed Affect (flat) Skin: Warm/Dry Results Lab Microbiology 09/03/16 MRSA Screen - Final, Complete Assessment/Plan Assessment/Plan Assessment/Plan 36 yo M diverticular disease- with parastomal hernia- s/p robotic assisted colostomy reversal and parastomal hernia repair- 09/03/16- continue to monitor obesity- encourage weight loss through lifestyle modifications. Pain- has fentanyl, hydrocodone/apap insomnia- using ambien Dispo: continue to monitor- Dr. Sanchez surgeon will be back tomorrow. Problems: Clinical Quality Measures DVT/VTE Risk/Contraindication: Risk Factor Score Per Nursin RFS Level Per Nursing on Admit: 3=High PATIENCE URBAN MD Sep 06, 2016 8:07 am
[2016-09-06 08:16] VITALS: BP 125/59
[2016-09-06] MEDS: D5 1/2 NS W/KCL 20 MEQ/L 1,000 ML IV SCH ×2 (08:22→17:42)
[2016-09-06 12:00] VITALS: BP 120/58
[2016-09-06] MEDS: ENOXAPARIN 40 MG/0.4 ML (LOVENOX) SYR SC SCH (15:55)
[2016-09-06 17:00] VITALS: BP 115/63
[2016-09-06] MEDS: fentaNYL INJECTION 100 MCG/2 ML AMP IV PRN ×2 (19:35→23:12)
[2016-09-06 20:00] VITALS: BP 113/76
[2016-09-06] MEDS: ZOLPIDEM 5 MG (AMBIEN) TAB PO SCH ×2 (21:00→23:08)
[2016-09-07] VITALS: BP 115/75
[2016-09-07] MEDS: D5 1/2 NS W/KCL 20 MEQ/L 1,000 ML IV SCH (03:15)
[2016-09-07 04:45] VITALS: BP 111/74
[2016-09-07] MEDS: METOCLOPRAMIDE INJ 10 MG/2 ML (REGLAN) IVP SCH ×3 (05:02→18:22)
[2016-09-07] MEDS: HYDROcodone/APAP 5 MG/325 MG (LORTAB) TAB PO PRN ×4 (05:03→20:04)
[2016-09-07 08:05] VITALS: BP 110/75
--- NOTE | 2016-09-07 10:33 | Progress Note-Standard ---
Standard Progress Note Progress Notes/Assess & Plan Progress/Assessment & Plan 09/04/16:doing well. Vital signs stable. Pain control reasonable. Could be transferred to the floor 09/05/16: No new concerns. Colostomy wound looks healthy. Has not passed flatus. Vitals stable. 09/07/16: Continues to improve. Afebrile. Echymosis over both flanks. Colostomy wound draining, but no cellulitis. Passed flatus. Will advance diet Final Diagnosis Sigmoid diverticular disease, resolved. Para-stomal hernia JOLENE MCCRAY MD Sep 07, 2016 10:33 am
[2016-09-07] MEDS: ENOXAPARIN 40 MG/0.4 ML (LOVENOX) SYR SC SCH (15:40)
[2016-09-07 16:00] VITALS: BP 110/73
[2016-09-07] MEDS: ZOLPIDEM 5 MG (AMBIEN) TAB PO SCH (20:03)
[2016-09-08] MEDS: METOCLOPRAMIDE INJ 10 MG/2 ML (REGLAN) IVP SCH ×3 (00:09→12:45)
[2016-09-08 00:41] VITALS: BP 117/80
[2016-09-08] MEDS: HYDROcodone/APAP 5 MG/325 MG (LORTAB) TAB PO PRN ×2 (02:01→08:31)
[2016-09-08] MEDS: fentaNYL INJECTION 100 MCG/2 ML AMP IV PRN ×2 (02:01→10:56)
[2016-09-08 08:00] VITALS: BP 116/77
--- NOTE | 2016-09-08 13:23 | Progress Note-Standard ---
Standard Progress Note Progress Notes/Assess & Plan Progress/Assessment & Plan 09/04/16:doing well. Vital signs stable. Pain control reasonable. Could be transferred to the floor 09/05/16: No new concerns. Colostomy wound looks healthy. Has not passed flatus. Vitals stable. 09/07/16: Continues to improve. Afebrile. Echymosis over both flanks. Colostomy wound draining, but no cellulitis. Passed flatus. Will advance diet 09/08/16:Doing well. Has had BMs. Home Final Diagnosis Resolved anastamotic leak. Para-stomal hernia JOLENE MCCRAY MD Sep 08, 2016 1:23 pm
[2016-09-08] MEDS ORDERED: HYDR-3812 PO (13:25)
--- NOTE | 2016-09-08 13:26 | Discharge Inst-Simple/Standard ---
Discharge Inst-Standard Discharge Medications New, Converted or Re-Newed RX: RX on Chart Patient Instructions/Follow Up Plan of Care/Instructions/FU: No lifting. Binder on while moving around. May shower. Dress the colostomy wound with xerodorm and ABD once a day. F/U on 09/18 @3 pm Activity as Tolerated: No Goal: See above Discharge Diet: No Restrictions, Soft Diet JOLENE MCCRAY MD Sep 08, 2016 1:26 pm
[2016-09-08 13:43] VITALS: BP 116/77
--- NOTE | 2016-09-09 09:06 | DISCHARGE SUMMARY ---
DATE OF ADMISSION: 09/03/2016 DATE OF DISCHARGE: 09/08/2016 DIAGNOSIS: 1. Resolved, anastomotic leak, sigmoid resection. 2. Paracolostomy hernia. OPERATION: 1. Robotic assisted reversal of colostomy. 2. Primary repair of parastomal hernia. This gentleman developed anastomotic dehiscence from sigmoid resection in March 2016, requiring fecal diversion with colostomy. During the later part of his recovery, he also developed a symptomatic parastomal hernia. He underwent an elective reversal of colostomy using robotic assistance and primary repair of the ventral hernia. He has since made a reasonable recovery. At that time of discharge, he is tolerating a soft diet and has resumed bowel movements. The initial stools were blood strained and it is likely that they would clear up over the next few days. I have instructed him to contact me, should there be any concerns before his scheduled follow-up in about 10 days. Job ID: [id number] Dictated Date: 09/08/2016 13:21:30 Floorworker Lasting Date: 09/09/2016 09:03:21/sonam CHATMAN
== END 2016-09-08 13:30 | disposition home or self-care (01) | DRG 346 ==
LOC: 3RD 09-03 05:53 → SURG 09-03 05:54 → ICU 09-03 14:20 → 4TH 09-04 13:15
PROVIDERS: ADMIT Surgery; ATTEND Surgery
PROC: 0WQF0ZZ Repair Abdominal Wall, Open Approach (ICD-10-PCS; 2016-09-03)
PROC: 0DSM4ZZ Reposition Descending Colon, Percutaneous Endoscopic Approach (ICD-10-PCS; principal; 2016-09-03 07:58)
PROC: 8E0W4CZ Robotic Assisted Procedure of Trunk Region, Percutaneous Endoscopic Approach (ICD-10-PCS; principal; 2016-09-03 07:58)
DX: Z43.3 Encounter for attention to colostomy (principal); K43.5 Parastomal hernia without obstruction or gangrene; Z87.19 Personal history of other diseases of the digestive system; E66.9 Obesity, unspecified; G47.00 Insomnia, unspecified; Z68.38 Body mass index [BMI] 38.0-38.9, adult
CPT/HCPCS: 36415; 80048; 82962; 83735; 84100; 85025; 85027; 86850; 86900; 86901; 87081; 88305

== ENCOUNTER 2016-08-28 13:31 | Outpatient (CLI) | payer OTHER ==
[~2016-08-28] VITALS: Ht 167.6 cm; Wt 109.1 kg
== END 2016-08-28 14:25 ==
LOC: PREOP 13:31
PROVIDERS: ATTEND Surgery
DX: Z01.818 Encounter for other preprocedural examination (principal); K57.30 Diverticulosis of large intestine without perforation or abscess without bleeding

== ENCOUNTER 2016-09-30 12:39 | Inpatient (IN) | payer OTHER ==
[~2016-09-30] VITALS: Ht 167.6 cm; Wt 111.0 kg
[~2016-09-30 12:39] MED LIST changes: +HYDR-3812 PO; +ZOLP10TA5 PO
[2016-09-30] MEDS ORDERED: IOHEXOL 350 MG/ML 100 ML (OMNIPAQUE 350) VIAL IV ONE (13:15)
[2016-09-30] MEDS: CATHETER FLUSH 10 ML SYR IV PRN (13:18)
--- NOTE | 2016-09-30 13:47 | Diagnostic Imaging Report ---
PROCEDURE: CT abdomen and pelvis with contrast. TECHNIQUE: Multiple contiguous axial images were obtained through the abdomen and pelvis after administration of intravenous contrast. INDICATION: Abdominal pain with nausea and vomiting. COMPARISON: 08/13/2016. DISCUSSION: Interval postsurgical changes of left lower quadrant colostomy takedown. There is gas and fluid within the left abdominal body wall surgical bed measuring 5.2 x 1.7 cm, concerning for an abscess. Left lateral body wall hernia containing fat and nonobstructed small bowel does not appear to be significantly changed from the prior exam. The hernia now contains less bowel than it did on the other previous imaging. Near the suture line within the colon within the lower pelvis, there is now a 4.5 x 3.5 cm gas and fluid collection, likely an abscess. No obstruction, pneumatosis, pneumoperitoneum. The visualized lung bases are well aerated. Normal heart size. No pleural or pericardial fluid. The stomach is distended with ingested food. Fatty infiltration of the liver is noted. The gallbladder is surgically absent. The pancreas, spleen, adrenal glands, kidneys, and urinary bladder are unremarkable. No ascites or pathologically enlarged lymph nodes identified. No acute osseous abnormality identified. IMPRESSION: 1. Interval takedown of the left abdominal colostomy. Abscesses are noted at the anastomotic suture line within the pelvis and also within the left body wall. 2. Fatty infiltration of the liver. 3. Left lateral body wall hernia contains fat and a small amount of small bowel. No obstruction identified. Dictated by: Dictated on workstation # [id number]
[2016-09-30] MEDS ORDERED: LIDOCAINE 1% INJ 20 ML (XYLOCAINE) VIAL ONE (15:37)
[2016-09-30] MEDS ORDERED: fentaNYL INJECTION 100 MCG/2 ML AMP ONE (15:37)
--- NOTE | 2016-09-30 15:44 | History & Physicial ---
History of Present Illness History of Present Illness Reason for visit/HPI This gentleman underwent robotic-assisted reversal of a colostomy about a month ago. With regard to this, he has made a reasonable recovery. Over the past 34 hours, he has been constipated and various laxatives and stool softeners did not help. Therefore, a contrast enhanced CT scan has been obtained. This shows an abscess anterior to the anastomosis possibly due to a delayed leak. In addition, there is a small fluid collection around the left lower quadrant, in preference to the previous colostomy site. This is open to the outside and therefore ongoing wound management would suffice. He's being admitted to receive intravenous antibiotics and undergo CT-guided drainage of the abscess first. Date of Admission September 30, 2016 at 15:28 I consulted on this patient on 09/30/16 15:39 Attending Physician Jolene Sanchez MD Admitting Physician Asia Kauffman MD Consult Allergies and Home Medications Allergies Coded Allergies: No Known Drug Allergies (Unverified , 07/17/16) Home Medications Hydrocodone/Acetaminophen 1 Each Tablet, 1-2 TAB PO 4-6HR PRN for PAIN, #30 Ref 0 Prescribed by: JOLENE SANCHEZ on 09/08/16 1325 Zolpidem Tartrate 10 Mg Tablet, 10 MG PO HS PRN for INSOMNIA, (Reported) Past Axeelkf-Bbhvsb-Jasaod Hx Patient Social History Marrital Status: single Employed/Student: employed Smoking Status: Never a Smoker Type Used: Cigarettes 2nd Hand Smoke Exposure: No Recent Foreign Travel: No Contact w/other who traveled: No Recent Hopitalizations: Yes (12/2015 FOR DIVERTIC) Immunizations Up To Date Tetanus Booster (TDap): Unknown Seasonal Allergies Seasonal Allergies: No Surgeries HX Surgeries: Yes (NASAL SURGERY, SIGMOID COLON) Surgeries: Bowel Surgery, Gallbladder Respiratory Hx Respiratory Disorders: No Cardiovascular Hx Cardiovascular Disorders: No Neurological Hx Neurological Disorders: No Reproductive System Hx Reproductive Disorders: No Sexually Transmitted Disease: No HIV/AIDS: No Genitourinary Hx Genitourinary Disorders: No Gastrointestinal Hx Gastrointestinal Disorders: Yes (BOWEL RESECTION X2 - REMOVAL SIG COLON) Gastrointestinal Disorders: Diverticulosis Musculoskeletal Hx Musculoskeletal Disorders: No Endocrine Hx Endocrine Disorders: No HEENT HX ENT Disorders: No Loss of Vision: Denies Hearing Impairment: Denies Cancer Hx Cancer: No Psychosocial Hx Psychiatric Problems: No Integumentary HX Skin/Integumentary Disorder: No Blood Transfusions Hx Blood Disorders: No Adverse Reaction to a Blood Tr: No (N/A) Family Medical History Significant Family History: Hypertension Family Hx: Patient reports no known family medical history. Constitutional: no symptoms reported Respiratory: no symptoms reported Cardiovascular: no symptoms reported Gastrointestinal: constipation, vomiting Genitourinary: no symptoms reported Musculoskeletal: no symptoms reported Skin: no symptoms reported Psychiatric/Neurological: No Symptoms Reported Physical Exam Vital Signs Capillary Refill : General Appearance: No Apparent Distress Respiratory: Lungs Clear Cardiovascular: Regular Rate, Rhythm Gastrointestinal: Other Rectal: Deferred Extremity: Normal Capillary Refill Neurologic/Psychiatric: Alert, Oriented x3 Skin: Warm/Dry Comments Granulating wound over the left lower quadrant. Laparoscopic trocar incisions well-healed. No evidence of peritonitis. No distention. Assessment/Plan Assessment and Plan Gentleman with an intra-abdominal abscess possibly due to delayed leak. Reasonable to use intravenous antibiotics and have the abscess drained first. Subsequently, a straight repeat CT with possible rectal contrast would be obtained to gauge the degree of leak. If free leakage was found, laparoscopic- assisted diverting loop ileostomy would be required. This has been discussed with the patient multiple times even before the reversal of colostomy and he seems to understand Problems: Admission Diagnosis Intra-abdominal abscess JOLENE SANCHEZ MD September 30, 2016 15:44
[2016-09-30 15:52] VITALS: BP 126/84
[2016-09-30] MEDS ORDERED: PIPERACILLIN/TAZOBACTAM 4.5 GM/NS100 ML IVPB IV NR ×2 (15:54)
[2016-09-30] MEDS ORDERED: ACETAMINOPHEN 325 MG TABLET/CAPLET (TYLENOL) PO PRN (16:00)
[2016-09-30] MEDS ORDERED: ONDANSETRON 4 MG/2 ML (SDV) Z0FRAN IV PRN (16:00)
[2016-09-30] MEDS ORDERED: fentaNYL INJECTION 100 MCG/2 ML AMP IVP ONE (16:00)
[2016-09-30] MEDS ORDERED: LIDOCAINE 1% INJ 20 ML (XYLOCAINE) VIAL INJ ONE (16:00)
[2016-09-30 16:02] VITALS: BP 120/82
[2016-09-30 16:15] VITALS: BP 121/82
[2016-09-30 16:20] VITALS: BP 125/79
[2016-09-30] MEDS: LACTATED RINGERS 1,000 ML IV SCH (16:29)
[2016-09-30 16:55] LABS: BASOPHILS % (AUTO) 1 % (0-10); EOSINOPHILS # (AUTO) 0.1 10^3/uL (0.0-0.3); EOSINOPHILS % (AUTO) 1 % (0-10); LYMPHOCYTES # (AUTO) 2.1 X 10^3 (1.0-4.0); LYMPHOCYTES % (AUTO) 28 % (12-44); MEAN CORPUSCULAR HEMOGLOBIN 29 PG (25-34); MEAN CORPUSCULAR HGB CONC 33 G/DL (32-36); MEAN CORPUSCULAR VOLUME 90 FL (80-99); MEAN PLATELET VOLUME 10.1 FL (7.4-10.4); MONOCYTES # (AUTO) 0.6 X 10^3 (0.0-1.0); MONOCYTES % (AUTO) 8 % (0-12); NEUTROPHILS # (AUTO) 4.5 X 10^3 (1.8-7.8); NEUTROPHILS % (AUTO) 62 % (42-75); PLATELET COUNT 246 10^3/uL (130-400); RED BLOOD COUNT 4.73 10^6/uL (4.35-5.85); RED CELL DISTRIBUTION WIDTH 13.8 % (10.0-14.5); WHITE BLOOD COUNT 7.4 10^3/uL (4.3-11.0)
[2016-09-30] MEDS ORDERED: KETO10TA PO (16:58)
[2016-09-30] MEDS ORDERED: OXYC-471 PO (16:58)
[2016-09-30 17:13] LABS: ANION GAP 8 MMOL/L (5-14); BLOOD UREA NITROGEN 13 MG/DL (7-18); BUN/CREATININE RATIO 15; CALCIUM 9.1 MG/DL (8.5-10.1); CARBON DIOXIDE 27 MMOL/L (21-32); CHLORIDE 107 MMOL/L (98-107); CREATININE SERUM 0.87 MG/DL (0.60-1.30); GFR ESTIMATED > 60; GLUCOSE 112 MG/DL (70-105); POTASSIUM 3.6 MMOL/L (3.6-5.0); SODIUM 142 MMOL/L (135-145)
[2016-09-30] MEDS: fentaNYL INJECTION 100 MCG/2 ML AMP IV PRN ×2 (18:47→21:26)
[2016-09-30 19:25] VITALS: BP 102/67
[2016-09-30] MEDS: PIPERACILLIN/TAZOBACTAM 4.5 GM/NS 100 ML IVPB IV SCH ×2 (21:26)
[2016-10-01] VITALS: BP 107/70
[2016-10-01] MEDS: LACTATED RINGERS 1,000 ML IV SCH ×5 (00:15→17:35)
[2016-10-01] MEDS: fentaNYL INJECTION 100 MCG/2 ML AMP IV PRN ×6 (00:22→23:31)
[2016-10-01 03:35] VITALS: BP 104/68
[2016-10-01] MEDS: PIPERACILLIN/TAZOBACTAM 4.5 GM/NS 100 ML IVPB IV SCH ×2 (05:11)
[2016-10-01 08:00] VITALS: BP 109/65
[2016-10-01] MEDS: CATHETER FLUSH 10 ML SYR IV PRN ×2 (09:14→09:51)
[2016-10-01] MEDS: MEROPENEM 500 MG/NS 100 ML IVPB IV SCH ×8 (09:14→23:30)
--- NOTE | 2016-10-01 09:21 | Diagnostic Imaging Report ---
EXAMINATION: Portable upright radiograph of the chest. INDICATION: PICC line placement. FINDINGS: The PICC line nurse Cordelia pulled back the catheter 4 cm after obtaining this x-ray which would put the tip of the catheter in the SVC. The lungs are clear. The heart size is at the upper limits of normal. No effusion or pneumothorax. The mediastinum and gabriel appear unremarkable. IMPRESSION: The PICC line tip would be in the SVC after it has been pulled back 4 cm as reportedly was done by the PICC line nurse just after the chest x-ray was performed. No acute process. Dictated by: Dictated on workstation # [id number]
[2016-10-01 09:35] LABS: MEAN PLATELET VOLUME 10.5 FL (7.4-10.4); RED BLOOD COUNT 4.43 10^6/uL (4.35-5.85); RED CELL DISTRIBUTION WIDTH 13.5 % (10.0-14.5); WHITE BLOOD COUNT 6.7 10^3/uL (4.3-11.0)
[2016-10-01 09:59] LABS: ALANINE AMINOTRANSFERASE 27 U/L (0-55); ALBUMIN 3.5 G/DL (3.2-4.5); ANION GAP 8 MMOL/L (5-14); ASPARTATE AMINO TRANSFERASE 15 U/L (5-34); BILIRUBIN,TOTAL 0.9 MG/DL (0.1-1.0); BLOOD UREA NITROGEN 12 MG/DL (7-18); BUN/CREATININE RATIO 14; CALCIUM 8.8 MG/DL (8.5-10.1); CARBON DIOXIDE 27 MMOL/L (21-32); CHLORIDE 105 MMOL/L (98-107); CREATININE SERUM 0.87 MG/DL (0.60-1.30); GFR ESTIMATED > 60; GLUCOSE 95 MG/DL (70-105); PHOSPHORUS 4.2 MG/DL (2.3-4.7); POTASSIUM 3.9 MMOL/L (3.6-5.0); SODIUM 140 MMOL/L (135-145); TOTAL PROTEIN 6.2 G/DL (6.4-8.2); TRIGLYCERIDES 132 MG/DL (<150)
[2016-10-01 10:36] LABS: INR 1.1 (0.8-1.4); PROTHROMBIN TIME PATIENT 13.5 SEC (12.2-14.7)
--- NOTE | 2016-10-01 10:52 | Pre-Procedure Progress Note ---
Pre-Procedure Progress Note H&P Reviewed The H&P was reviewed, patient examined and no changes noted. Date H&P Reviewed: September 30, 2016 Time H&P Reviewed: 15:00 Pre-Procedure Diagnosis: abscess GLORIA WARREN MD October 01, 2016 10:52
[2016-10-01] MEDS ORDERED: TPN IV SCH (11:30)
--- NOTE | 2016-10-01 11:46 | Progress Note-Standard ---
Standard Progress Note Progress Notes/Assess & Plan Progress/Assessment & Plan 10/01/16:admitted yesterday with an abscess anterior and superior to the anastomosis in the proximal pelvis. Percutaneously drained under CT guidance. No abdominal symptoms. Passing flatus. Escherichia coli culture and appropriate antibiotics being used. No abdominal tenderness. Will allow clear liquids and use TPN in the meantime Final Diagnosis intra-abdominal abscess JOLENE MCCRAY MD October 01, 2016 11:46 am
[2016-10-01 11:55] VITALS: BP 104/61
[2016-10-01] MEDS: ENOXAPARIN 40 MG/0.4 ML (LOVENOX) SYR SC SCH (12:48)
--- NOTE | 2016-10-01 15:00 | Diagnostic Imaging Report ---
EXAMINATION: CT-guided drain placement. Pelvis abscess. INDICATION: Abscess in the upper pelvis adjacent to colonic anastomosis. The patient's vital signs, cardiac rhythm, and pulse oximetry with observed throughout the procedure by qualified nursing personnel. Sedation/medications: Fentanyl 50 mcg IV. No sedatives given otherwise CONSENT: Informed consent was obtained from the patient. The risks, benefits, potential complications and alternatives were reviewed and all questions answered to the patient's satisfaction. FINDINGS: Pelvic fluid collection PROCEDURE: After maximal sterile barrier preparation and draping, 1% lidocaine was utilized for local anesthesia. With the patient in supine position, anterior approach was selected. A 19-gauge Yueh sheathed needle was introduced utilizing CT guidance into the upper pelvis fluid collection. CT images confirm appropriate positioning. After standard over a guidewire exchange technique and after serial dilatation, a 12 [place]an drain is placed and distal loop formed in the collection. A 10 ml of yellow purulent fluid is aspirated and sent to microbiology. The drainage catheter is connected to suction type draining bag. The patient tolerated the procedure well with no immediate complications. IMPRESSION: Successful CT-guided, 12 [place]an, drain placement in upper pelvic abscess. Dictated by: Dictated on workstation # [id number]
[2016-10-01] MEDS: POTASSIUM CHLORIDE IV SCH ×10 (16:55)
[2016-10-01] MEDS: SODIUM CHLORIDE IV SCH ×10 (16:55)
[2016-10-01] MEDS: [UNRECOGNIZED DRUG - OTHER] IV SCH ×10 (16:55)
[2016-10-01] MEDS ORDERED: LACTATED RINGERS 1,000 ML IV SCH (17:00)
[2016-10-01] MEDS ORDERED: POTASSIUM CHLORIDE IV SCH ×10 (17:00)
[2016-10-01] MEDS ORDERED: SODIUM CHLORIDE IV SCH ×10 (17:00)
[2016-10-01] MEDS ORDERED: [UNRECOGNIZED DRUG - OTHER] IV SCH ×10 (17:00)
[2016-10-01 17:25] VITALS: BP 111/55
[2016-10-01 20:40] VITALS: BP 112/61
[2016-10-02] VITALS (7 sets, daily range): BP systolic 102–112; BP diastolic 59–74
[2016-10-02] MEDS: MEROPENEM 500 MG/NS 100 ML IVPB IV SCH ×8 (05:21→23:29)
[2016-10-02] MEDS: fentaNYL INJECTION 100 MCG/2 ML AMP IV PRN ×6 (05:58→20:40)
[2016-10-02] MEDS: ENOXAPARIN 40 MG/0.4 ML (LOVENOX) SYR SC SCH (12:17)
--- NOTE | 2016-10-02 15:44 | Progress Note-Standard ---
Standard Progress Note Progress Notes/Assess & Plan Progress/Assessment & Plan 10/01/16:admitted yesterday with an abscess anterior and superior to the anastomosis in the proximal pelvis. Percutaneously drained under CT guidance. No abdominal symptoms. Passing flatus. Escherichia coli culture and appropriate antibiotics being used. No abdominal tenderness. Will allow clear liquids and use TPN in the meantime 10/02/16: Very minimal output from the drain. Passing flatus. Hungry. No abdominal tenderness. Will advance to full liquids. Possible discharge tomorrow with outpatient IV antibiotics. Repeat CT scan early part of the week. Final Diagnosis Intra-abdominal abscess JOLENE MCCRAY MD October 02, 2016 15:44
[2016-10-02] MEDS: [UNRECOGNIZED DRUG - OTHER] IV SCH ×10 (16:53)
[2016-10-02] MEDS: SODIUM CHLORIDE IV SCH ×10 (16:53)
[2016-10-02] MEDS: POTASSIUM CHLORIDE IV SCH ×10 (16:53)
[2016-10-02] MEDS: LACTATED RINGERS 1,000 ML IV SCH (18:34)
[2016-10-03] MEDS: fentaNYL INJECTION 100 MCG/2 ML AMP IV PRN ×8 (00:19→18:37)
[2016-10-03] MEDS: MEROPENEM 500 MG/NS 100 ML IVPB IV SCH ×6 (05:03→17:09)
[2016-10-03 08:56] VITALS: BP 93/57
--- NOTE | 2016-10-03 11:18 | Progress Note-Standard ---
Standard Progress Note Progress Notes/Assess & Plan Progress/Assessment & Plan 10/01/16:admitted yesterday with an abscess anterior and superior to the anastomosis in the proximal pelvis. Percutaneously drained under CT guidance. No abdominal symptoms. Passing flatus. Escherichia coli culture and appropriate antibiotics being used. No abdominal tenderness. Will allow clear liquids and use TPN in the meantime 10/02/16: Very minimal output from the drain. Passing flatus. Hungry. No abdominal tenderness. Will advance to full liquids. Possible discharge tomorrow with outpatient IV antibiotics. Repeat CT scan early part of the week. 10/03/16 Improving. No new symptoms. Afebrile. Home on IV antibiotics Final Diagnosis Intra-abdominal abscess JOLENE MCCRAY MD October 03, 2016 11:18 am
[2016-10-03] MEDS ORDERED: OXYC-197 PO (11:21)
--- NOTE | 2016-10-03 11:22 | Discharge Inst-Simple/Standard ---
Discharge Inst-Standard Discharge Medications New, Converted or Re-Newed RX: RX on Chart Patient Instructions/Follow Up Plan of Care/Instructions/FU: IV antibiotics as an outpatient, once a day(Arranged) Activity as Tolerated: Yes Discharge Diet: Liquid Diet JOLENE MCCRAY MD October 03, 2016 11:22 am
[2016-10-03] MEDS: ENOXAPARIN 40 MG/0.4 ML (LOVENOX) SYR SC SCH (12:05)
[2016-10-03 16:00] VITALS: BP 117/76
[2016-10-03] MEDS: SODIUM CHLORIDE IV SCH ×10 (16:31)
[2016-10-03] MEDS: [UNRECOGNIZED DRUG - OTHER] IV SCH ×10 (16:31)
[2016-10-03] MEDS: POTASSIUM CHLORIDE IV SCH ×10 (16:31)
[2016-10-03 18:52] VITALS: BP 117/76
--- NOTE | 2016-10-04 11:36 | DISCHARGE SUMMARY ---
DATE OF SERVICE: 10/03/2016 DIAGNOSIS: Intraabdominal abscess. PROCEDURE: CT guided drainage of intraabdominal abscess. This gentleman had undergone reversal of colonostomy using minimally invasive technique about a month ago. He presented with abdominal pain and slight nausea. CT scan showed an intraabdominal abscess, anterior to the anastomosis in the pelvis. This was drained percutaneously and cultures have grown E coli. He has been on appropriate antibiotics. He does not have any evidence of active leak from the anastomosis and is passing flatus. He is being maintained on TPN with full liquid diet. He will receive intravenous antibiotics for 1 week as an outpatient. Followup CT scan is scheduled for 10/06/2016. Depending on the findings, decision to remove the drain would be made. Job ID: [id number] DocumentID: [id number] Dictated Date: 10/03/2016 11:18:14 Follow Up Specialist Date: 10/04/2016 11:35:41 Dictated By: JOLENE MCCRAY MD
== END 2016-10-03 18:55 | disposition home or self-care (01) | DRG 862 ==
LOC: RAD 12:39 → 4TH 15:28
PROVIDERS: ADMIT Surgery; ATTEND Surgery
PROC: 0W9J30Z Drainage of Pelvic Cavity with Drainage Device, Percutaneous Approach (ICD-10-PCS; principal; 2016-09-30)
DX: T81.4XXA Infection following a procedure, initial encounter (principal); K65.1 Peritoneal abscess; B96.20 Unspecified Escherichia coli [E. coli] as the cause of diseases classified elsewhere
CPT/HCPCS: 36415; 36569; 71010; 74177; 76937; 77012; 80048; 80053; 82962; 83735; 84100; 84134; 84478; 85025; 85027; 85610; 87070; 87075; 87077; 87186; 87205

== ENCOUNTER 2016-10-05 11:04 | Emergency (ER) | payer OTHER ==
[~2016-10-05] VITALS: Ht 167.6 cm; Wt 108.4 kg
[~2016-10-05 11:04] MED LIST changes: +KETO10TA PO; +OXYC-197 PO; +OXYC-471 PO
--- NOTE | 2016-10-05 12:03 | ED General ---
General Chief Complaint: Catheter/Drain/Tube Problems Stated Complaint: DRAIN/TUBING IN STOMACH PULLED OUT Nursing Triage Note: AMBULATED TO ROOM 07 WITHOUT DIFFICULTY. STATES YESTERDAY HE CAUGHT HIS DRAIN TUBE ON THE DIVANITY AND HE THINKS IT HAS CAME OUT SOME. COMPLAINS OF SEVERE ABD PAIN SINCE. PT HAD SURGERY WITH DR MCCRAY August AND HAS A DRAIN DUE TO AN ABSCESS. PT ALSO HAS A PICC LINE RIGHT UPPER ARM THAT HE RECIEVES IV ANTIOTICS THRU. Nursing Sepsis Screen: No Definite Risk Source of Information: Patient, Old Records (GISELA CHILDS DO) History of Present Illness Time Seen by Provider: 11:30 Initial Comments PT HAD COLOSTOMY REVERSAL AND REPAIR OF MARK-STOMAL HERNIA ON 09/03/16 PT RE-ADMITTED 09/30-10/03 FOR INTRA-ABDOMINAL ABSCESS AND HAD A DRAIN PLACED, AND PT IS RECEIVING IV ANTIBIOTICS VIA PICC LINE PT STATES HAD BEEN DRAINING QUITE A BIT, BUT YESTERDAY MORNING HE CAUGHT THE TUBING OF THE DRAIN ON THE EDGE OF A VANITY, AND STATES PART OF TUBING CAME OUT SINCE THEN, HE HAS HAD SEVERE ABDOMINAL PAIN AND HAS NOT HAD ANY DRAINAGE AT ALL FROM THE TUBE NO FEVER NO NAUSEA/VOMITING LAST BM WAS ON Thursday10/03/16 , AND WAS NORMAL PCP: DR. Gage URBAN (GISELA CHILDS DO) Initial Comments Patient reports that he has a percutaneous drain for an abscess after a colostomy revision done September 30. Thursday morning he drain 30 cc of brown fluid and then accidentally ran into something where it pulled the drain out. He is not sure how far came out that the tip is still in his skin. He is having some pain and it has not drained since the incident was pulled on it. He's had no fevers nausea vomiting chills shortness of breath, chest pain. He has had constipation with last bowel movement on Thursday. He is been taking 10/01/24 Percocet 2 tablets every 4 hours with minimal pain relief. (CARRIE DIANE) Allergies and Home Medications Allergies Coded Allergies: No Known Drug Allergies (Unverified , 07/17/16) Home Medications Oxycodone HCl/Acetaminophen 1 Each Tablet, 1-2 TAB PO EVERY 4-6 HOURS PRN for PAIN-MODERATE, (Reported) Oxycodone HCl/Acetaminophen 1 Each Tablet, 1 EACH PO Q4H PRN for ABDOMINAL PAIN , #30 Prescribed by: JOLENE MCCRAY on 10/03/16 1121 Oxycodone HCl/Acetaminophen 1 Each Tablet, 1 EACH PO Q4H PRN for BREAKTHROUGH PAIN, #10 Ref 0 Prescribed by: CARRIE DIANE on 10/05/16 1249 Polyethylene Glycol 3350 17 Gm Powd.pack, 17 GM PO QID PRN for CONSTIPATION-1ST LINE, #1 Ref 0 Prescribed by: CARRIE DIANE on 10/05/16 1249 Zolpidem Tartrate 10 Mg Tablet, 10 MG PO HS PRN for INSOMNIA, (Reported) Constitutional: no symptoms reported Respiratory: no symptoms reported Cardiovascular: no symptoms reported Gastrointestinal: see HPI Genitourinary: no symptoms reported Musculoskeletal: no symptoms reported Skin: no symptoms reported (GISELA CHILDS DO) Past Yerlqlb-Flyvuf-Ytzzah Hx Patient Social History Alcohol Use: Denies Use Recreational Drug Use: No Smoking Status: Former Smoker Type Used: Cigarettes 2nd Hand Smoke Exposure: No Recent Foreign Travel: No Contact w/Someone Who Travel: No Recent Infectious Disease Expo: No Recent Hopitalizations: Yes (HUMPHREYNANCIA K DO) Immunizations Up To Date Tetanus Booster (TDap): Unknown (HUMPHREYGISELA K DO) Seasonal Allergies Seasonal Allergies: No (HUMPHREYGISELA K DO) Surgeries HX Surgeries: Yes (NASAL SURGERY, SIGMOID COLON, COLOSTOMY / COLOSTOMY REVERSAL AND REPAIR OF PARASTOMAL HERNIA 09/03/16; DRAIN IN INTRA-ABDOMINAL ABSCESS 09/30/16) Surgeries: Abdominal, Bowel Surgery, Gallbladder (HUMPHREYGISELA K DO) Respiratory Hx Respiratory Disorders: No (HUMPHREYGISELA K DO) Cardiovascular Hx Cardiac Disorders: No (HUMPHREYGISELA K DO) Neurological Hx Neurological Disorders: No (HUMPHREYGISELA K DO) Reproductive System Hx Reproductive Disorders: No Sexually Transmitted Disease: No HIV/AIDS: No (HUMPHREYGISELA K DO) Genitourinary Hx Genitourinary Disorders: No (HUMPHREYGISELA K DO) Gastrointestinal Hx Gastrointestinal Disorders: Yes (BOWEL RESECTION X2 - REMOVAL SIG COLON- COLOSTOMY WITH REVERSAL) Gastrointestinal Disorders: Diverticulosis (HUMPHREYGISELA K DO) Musculoskeletal Hx Musculoskeletal Disorders: No (HUMPHREYGISELA K DO) Endocrine Hx Endocrine Disorders: No (HUMPHREY,GISELA K DO) HEENT HX ENT Disorders: No Loss of Vision: Denies Hearing Impairment: Denies (GISELA CHILDS DO) Cancer Hx Cancer: No (GISELA CHILDS DO) Psychosocial Hx Psychiatric Problems: No (GISELA CHILDS DO) Integumentary HX Skin/Integumentary Disorder: No (GISELA CHILDS DO) Blood Transfusions Hx Blood Disorders: No Adverse Reaction to a Blood Tr: No (N/A) (HUMPHREYGISELAJill Botello DO) Family Medical History Family Medial History: Patient reports no known family medical history. (GISELA CHILDS DO) Family Medial History: Patient reports no known family medical history. (CARRIE DIANE) Physical Exam Vital Signs Vital Sign - Last 12Hours 10/05/16 11:15 Temp 98.6 Pulse 76 Resp 16 B/P (MAP) 134/63 Pulse Ox 96 O2 Delivery Room Air (CARRIE DIANE) Vital Signs Capillary Refill : Less Than 3 Seconds (GISELA CHILDS DO) General Appearance: No Apparent Distress, WD/WN Respiratory: Normal Breath Sounds Cardiovascular: Regular Rate, Rhythm Gastrointestinal: Tenderness (DIFFUSE TENDERNESS. NO DISTENTION. DRAIN AND DRESSING IN PLACE IN [place], SCANT AMOUNT OF DRIED DRAINAGE ON DRESSING. APPROXIMATELY 1 ML OF DRAINAGE IN DRAIN. ) Neurologic/Psychiatric: Alert, Oriented x3, No Motor/Sensory Deficits Skin: Normal Color, Warm/Dry (GISELA CHILDS DO) Progress/Results/Core Measures Results/Orders Vital Signs/I&O Vital Sign - Last 12Hours 10/05/16 11:15 Temp 98.6 Pulse 76 Resp 16 B/P (MAP) 134/63 Pulse Ox 96 O2 Delivery Room Air (CARRIE DIANE) Blood Pressure Mean: 86 Progress Note : Time: 12:13 Progress Note Assume care of the patient from Dr. Childs. (CARRIE DIANE) Diagnostic Imaging Diagonstic Imaging: CT Plain Films/CT/US/NM/MRI: abdomen Comments VIA [place], [place] NAME: ALFRED BANG [facility] REC#: [id number] PT STATUS: REG ER : 1980 PHYSICIAN: GISELA CHILDS DO ADMIT DATE: 10/05/16/ER Draft Date of Exam:10/05/16 CT ABDOMEN/PELVIS WO PROCEDURE: CT abdomen and pelvis without contrast. TECHNIQUE: Multiple contiguous axial images were obtained through the abdomen and pelvis without the use of intravenous contrast. INDICATION: Abscess. FINDINGS: The CT abdomen/pelvis exam of 09/30/2016 noted postsurgical changes involving the lower abdomen consistent with a left lower quadrant colostomy takedown. There did appear to be an abscess in the region of the anastomosis. The abscess measured approximately 4.5 x 3.5 cm. The patient subsequently underwent a CT-guided percutaneous drainage of the abscess later that day. Reportedly, the patient has accidentally pulled the drainage catheter on this study; the tip of the catheter does now lie approximately 1.6 cm from the abscess cavity. Most of the fluid within the abscess seen previously has resolved. There is still a collection of gas in this area measuring 2.2 x 3.0 cm. As on the prior exam, there is distortion of the mesenteric fat in this region consistent with edema/inflammation. There is no new abscess identified. There is a defect in the anterior abdominal wall on the left. The defect measures approximately 6.3 cm in maximum transverse diameter. A few segments of small bowel have extended into the defect, but there is no incarceration or obstruction of the segments of bowel. The previous CT exam did note gas and fluid in the subcutaneous fat along the anterior abdominal wall on the left at the level of the umbilicus. This area measured 5.2 x 1.7 cm. In the interval since the prior exam, most of the fluid in this area has resolved. There is only a small drop of gas present. This area of abnormal density now measures 6.5 x 3.0 cm. The remainder of the abdomen and pelvis is stable when compared to the prior study. The lung bases are generally clear. The bone windows show no evidence for a fracture or for a destructive lesion. IMPRESSION: 1. In the interval since the previous exam, the percutaneous drainage catheter has been retracted, and the tip now lies outside of the lumen of the abscess cavity. 2. The abscess cavity itself has decreased in size, and most of the fluid within the abscess has resolved. 3. Segments of small bowel have extended into the lateral hernia along the abdominal wall on the left. There is no obstruction or incarceration of the bowel, however. 4. The area of edema/inflammation involving the subcutaneous fat noted previously does measure larger. However, the fluid and gas in this area seen previously has essentially resolved. 5. These results were discussed with Dr. Diane in the ER. Dictated on workstation # [id number] Dict: 10/05/16 1217 Trans: 10/05/16 1236 [id number] Interpreted by: EUNICE RIBEIRO MD Electronically signed by: Reviewed: Reviewed by Me, Discussed w/Radiologist (CARRIE DIANE) Consults Consults : Consulting Physician: ALTAGRACIA MARTINEZ DO Consults Notes After discussing the case, the surgeon indicates it was time for the drain to be pulled anyways and as it is no longer doing any good we will pull now and have him follow-up in the morning with Dr. Mccray. The patient is on IV antibiotics through the PICC line outpatient and receive the next dose tomorrow. We'll give him medicines for pain and pull the drain. (CARRIE DIANE) Departure Communication Progress Notes 2108--SPOKE WITH DR. MARTINEZ, SURGEON [employer]. ADVISES CT SCAN AND WILL CALL HIM WITH RESULTS. (GISELA CHILDS DO) Impression Impression: Primary Impression: Abdominal pain Qualified Codes: R10.30 - Lower abdominal pain, unspecified Disposition: HOME, SELF-CARE Condition: Stable Departure-Patient Inst. Decision time for Depature: 12:46 (CARRIE DIANE) Referrals: STEFFI FRAGOSO MD (PCP/Family) Primary Care Physician Patient Instructions: Reyes-Meyer Drain Add. Discharge Instructions: If you're having pain he may use the 10 mg Percocets along with one 5 mg Percocets. Be aware that this will cause constipation and you should use MiraLAX daily up to 4 times a day as necessary to have bowel movements on a regular basis without straining. If you're having fevers, chills, nausea, vomiting that or not controlled by your medicines then you should immediately return to the ER or call your physician. Follow up with Dr. Mccray in the morning in his office after you get your antibiotics. Call his clinic directly. The drain site should be cleaned with mild soap and water and you can place a light dressing on it as needed to keep it clean. All discharge instructions reviewed with patient and/or family. Voiced understanding. Scripts Polyethylene Glycol 3350 (Miralax) 17 Gm Powd.pack 17 GM PO QID Y for CONSTIPATION-1ST LINE, #1 EACH 0 Refills Prov: CARRIE DIANE 10/05/16 Oxycodone HCl/Acetaminophen (Percocet 10-325 mg Tablet) 1 Each Tablet 1 EACH PO Q4H Y for BREAKTHROUGH PAIN, #10 TAB 0 Refills Prov: CARRIE DIANE 10/05/16 Copy Copies To 1: STEFFI FRAGOSO MD; JOLENE MCCRAY MD, LISA K DO October 05, 2016 12:03 CARRIE DIANE October 05, 2016 12:13
--- NOTE | 2016-10-05 12:37 | Diagnostic Imaging Report ---
PROCEDURE: CT abdomen and pelvis without contrast. TECHNIQUE: Multiple contiguous axial images were obtained through the abdomen and pelvis without the use of intravenous contrast. INDICATION: Abscess. FINDINGS: The CT abdomen/pelvis exam of 09/30/2016 noted postsurgical changes involving the lower abdomen consistent with a left lower quadrant colostomy takedown. There did appear to be an abscess in the region of the anastomosis. The abscess measured approximately 4.5 x 3.5 cm. The patient subsequently underwent a CT-guided percutaneous drainage of the abscess later that day. Reportedly, the patient has accidentally pulled the drainage catheter on this study; the tip of the catheter does now lie approximately 1.6 cm from the abscess cavity. Most of the fluid within the abscess seen previously has resolved. There is still a collection of gas in this area measuring 2.2 x 3.0 cm. As on the prior exam, there is distortion of the mesenteric fat in this region consistent with edema/inflammation. There is no new abscess identified. There is a defect in the anterior abdominal wall on the left. The defect measures approximately 6.3 cm in maximum transverse diameter. A few segments of small bowel have extended into the defect, but there is no incarceration or obstruction of the segments of bowel. The previous CT exam did note gas and fluid in the subcutaneous fat along the anterior abdominal wall on the left at the level of the umbilicus. This area measured 5.2 x 1.7 cm. In the interval since the prior exam, most of the fluid in this area has resolved. There is only a small drop of gas present. This area of abnormal density now measures 6.5 x 3.0 cm. The remainder of the abdomen and pelvis is stable when compared to the prior study. The lung bases are generally clear. The bone windows show no evidence for a fracture or for a destructive lesion. IMPRESSION: 1. In the interval since the previous exam, the percutaneous drainage catheter has been retracted, and the tip now lies just outside of the lumen of the abscess cavity. 2. The abscess cavity itself has decreased in size, and most of the fluid within the abscess has resolved. 3. A few segments of small bowel have extended into the lateral hernia along the abdominal wall on the left. There is no obstruction or incarceration of the bowel, however. 4. The area of edema/inflammation involving the subcutaneous fat noted previously does measure larger. However, the fluid and gas in this area seen previously has essentially resolved. 5. These results were discussed with Dr. Diane in the ER. Dictated by: Dictated on workstation # [id number]
[2016-10-05] MEDS ORDERED: POLY17PO6 PO (12:49)
[2016-10-05] MEDS ORDERED: OXYC-202 PO (12:49)
[2016-10-05 12:57] VITALS: BP 104/59
== END 2016-10-05 12:57 | disposition home or self-care (01) ==
LOC: EDUNIT# 11:04 → ER 11:05
DX: Z48.03 Encounter for change or removal of drains (principal); F17.210 Nicotine dependence, cigarettes, uncomplicated; Z98.890 Other specified postprocedural states
CPT/HCPCS: 74176; 99283

== ENCOUNTER 2016-10-10 08:40 | Outpatient (RCR) | payer OTHER ==
[2016-10-04 08:15] VITALS: BP 107/56
[2016-10-04] MEDS: metroNIDAZOLE 500MG/100ML IVPB 200 ML IV SCH (09:02)
[2016-10-05 08:50] VITALS: BP 112/69
[2016-10-05] MEDS: metroNIDAZOLE 500MG/100ML IVPB 200 ML IV SCH (08:50)
[2016-10-05 10:50] VITALS: BP 112/69
[2016-10-06] MEDS: metroNIDAZOLE 500MG/100ML IVPB 200 ML IV SCH (09:20)
[2016-10-06 11:25] VITALS: BP 109/64
[2016-10-07] MEDS: metroNIDAZOLE 500MG/100ML IVPB 200 ML IV SCH (08:00)
[2016-10-07 08:09] VITALS: BP 121/70
[2016-10-08] MEDS: metroNIDAZOLE 500MG/100ML IVPB 200 ML IV SCH (08:49)
[2016-10-08 10:05] VITALS: BP 123/80
[2016-10-09 07:20] VITALS: BP 119/77
[~2016-10-10] VITALS: Ht 167.6 cm; Wt 105.4 kg
[~2016-10-10 08:40] MED LIST changes: +OXYC-202 PO; +POLY17PO6 PO
[2016-10-10] MEDS: metroNIDAZOLE 500MG/100ML IVPB 200 ML IV SCH (08:57)
[2016-10-10 10:30] VITALS: BP 120/73
== END 2017-01-02 | disposition home or self-care (01) ==
LOC: SDC 08:40
PROVIDERS: ATTEND Surgery
DX: K65.1 Peritoneal abscess (principal)
CPT/HCPCS: 96365; 96366; 96367; 99211

== ENCOUNTER → 2016-11-07 | Outpatient (CLI) | payer OTHER ==
--- NOTE | 2016-11-07 11:32 | Diagnostic Imaging Report ---
PROCEDURE: CT abdomen and pelvis without contrast. TECHNIQUE: Multiple contiguous axial images were obtained through the abdomen and pelvis without the use of intravenous contrast. INDICATION: Suprapubic abdominal bulge. Abdominal wall hernias Findings: COMPARISON: 10/05/16. Findings: The lung bases appear clear. The liver demonstrate diffuse steatosis. Cholecystectomy clips are seen. The spleen, the adrenals, the pancreas and the kidneys appear from unremarkable for unenhanced exam. No urinary tract stones. No hydronephrosis. The abdominal aorta is normal in caliber. No periaortic significantly enlarged lymph nodes are seen. There is a colonic anastomosis at the mid sigmoid colon. Along the lower aspect of the anastomosis there is a air filled pocket with minimal amount of fluid seen projecting anteriorly. This pocket measures 2.4 x 1.8 x 1.6 CM. This is near the location of the previously seen abscess. There is only mild stranding of the surrounding fat which is potentially the sequela of previous infection and not necessarily related to an active inflammation. There is no significant free fluid or air fluid collection in the abdomen or pelvis seen at this time. There are abdominal wall hernias including a small fat-containing umbilical hernia. There is also a large left spigelian hernia with the size of the defect measuring 6 CM in transverse dimension and 9.3 CM craniocaudally. There is herniating small bowel loops with some omental fat. No bowel obstruction. There is another hernia containing fat seen medially at the colostomy level with the size of the defect measuring 3.9 CM transversely and 5.1 CM craniocaudally. There is diastases of the recti and anterior abdominal wall bulge. This is most pronounced in the suprapubic region without a discrete hernia defect. There is also a small fat-containing infraumbilical hernia noted. The osseous structures appear grossly unremarkable. IMPRESSION: 1. Large left spigelian hernia containing an unobstructed small bowel loops. There is a smaller adjacent fat-containing hernia medial to it seen. 2. In addition there are small fat-containing umbilical and infraumbilical hernias. 3. Diastases of the recti and abdominal wall bulge is seen in the suprapubic catheter region mimicking a wide neck ventral hernia. 4. There is a small pocket of air with minimal fluid projecting anteriorly from the sigmoid colon at the lower aspect of the colonic anastomosis. There is significant improvement of the inflammatory changes after the previous abscess drainage. This may represent remaining sinus tract or pseudodiverticulum, probably communicating with the colon. The findings are discussed with Dr. Sanchez at time of dictation. Dictated by: Dictated on workstation # [id number]
== END | disposition home or self-care (01) ==
LOC: RAD 09:23
PROVIDERS: ATTEND Surgery
DX: K43.9 Ventral hernia without obstruction or gangrene (principal); K42.9 Umbilical hernia without obstruction or gangrene; T81.4XXA Infection following a procedure, initial encounter; K65.1 Peritoneal abscess
CPT/HCPCS: 74176

== ENCOUNTER → 2016-12-23 | Outpatient (CLI) | payer OTHER ==
[~2016-12-23] MED LIST changes: +BARIUM SUSPENSION 2.1% (VANILLA SILQ) 450 ML PO ONE; +IBUP-30 PO; +IOHEXOL 350 MG/ML 100 ML (OMNIPAQUE 350) VIAL IV ONE; +NS 100 ML (IVPB) BAG IV ONE; +OXYC-464 PO
--- NOTE | 2016-12-23 10:35 | Diagnostic Imaging Report ---
PROCEDURE: CT abdomen and pelvis with contrast. TECHNIQUE: Multiple contiguous axial images were obtained through the abdomen and pelvis after administration of intravenous contrast. INDICATION: Abdominal pain. History of hernia. Comparison: 11/07/2016 Findings: The lung bases are clear. There is fairly pronounced diffuse hepatic steatosis. No focal hepatic mass is seen. The portal vein enhances normally. The gallbladder is absent. The pancreas, spleen and adrenal glands appear unremarkable. Both kidneys appear unremarkable. The ureters and bladder appear unremarkable. There is no evidence of appendicitis. There is no evidence of diverticulitis. There are postoperative changes of an inch and anastomosis of the of mid sigmoid colon. A small focal fluid collection inferior to the anastomotic site is slightly smaller. No associated fluid is seen today. Abdominal wall hernias are again demonstrated. A large left subgaleal hernia is again seen with a gap in the abdominal wall measuring about 6.7 cm. This contains nondistended colon and small bowel. At the site of the old colostomy, there is a second abdominal wall hernia containing fat and loops of nondistended small bowel. There is also a small fat-containing umbilical hernia, which appear similar to the prior study. There is no ascites or free air. There are no abnormally enlarged lymph nodes are seen. The abdominal aorta appears normal in caliber. IMPRESSION: 1. Overall no significant interval change in appearance of multiple abdominal wall hernias including a large left spigelian hernia. No evidence of new bowel obstruction or incarceration. 2. Postoperative changes with end to end anastomosis the mid sigmoid colon. A small focal air collection inferior to the anastomotic site is slightly smaller. No associated fluid collection is seen. 3. Diffuse hepatic steatosis. 4. No significant new abnormality or significant interval change is seen when compared to the recent prior CT. Dictated by: Dictated on workstation # [id number]
== END ==
LOC: RAD 08:03
PROVIDERS: ATTEND Surgery
DX: K43.9 Ventral hernia without obstruction or gangrene (principal); K76.0 Fatty (change of) liver, not elsewhere classified; Z98.0 Intestinal bypass and anastomosis status
CPT/HCPCS: 74177

== ENCOUNTER 2017-02-11 08:47 | Outpatient (CLI) | payer OTHER ==
[~2017-02-11] VITALS: Ht 167.6 cm; Wt 118.1 kg
[~2017-02-11 08:47] MED LIST changes: -BARIUM SUSPENSION 2.1% (VANILLA SILQ) 450 ML PO ONE; -IBUP-30 PO; -IOHEXOL 350 MG/ML 100 ML (OMNIPAQUE 350) VIAL IV ONE; -NAPR500T3 PO; +NAPR500T4 PO; -NS 100 ML (IVPB) BAG IV ONE; -OXYC-464 PO
[2017-02-11 09:04] VITALS: BP 128/77
[2017-02-11 09:31] LABS: BASOPHILS % (AUTO) 1 % (0-10); EOSINOPHILS # (AUTO) 0.2 10^3/uL (0.0-0.3); EOSINOPHILS % (AUTO) 3 % (0-10); LYMPHOCYTES # (AUTO) 2.1 X 10^3 (1.0-4.0); LYMPHOCYTES % (AUTO) 32 % (12-44); MEAN CORPUSCULAR HEMOGLOBIN 30 PG (25-34); MEAN CORPUSCULAR HGB CONC 33 G/DL (32-36); MEAN CORPUSCULAR VOLUME 89 FL (80-99); MEAN PLATELET VOLUME 10.6 FL (7.4-10.4); MONOCYTES # (AUTO) 0.6 X 10^3 (0.0-1.0); MONOCYTES % (AUTO) 10 % (0-12); NEUTROPHILS # (AUTO) 3.5 X 10^3 (1.8-7.8); NEUTROPHILS % (AUTO) 54 % (42-75); PLATELET COUNT 233 10^3/uL (130-400); RED BLOOD COUNT 5.39 10^6/uL (4.35-5.85); RED CELL DISTRIBUTION WIDTH 12.9 % (10.0-14.5); WHITE BLOOD COUNT 6.5 10^3/uL (4.3-11.0)
== END 2017-02-11 09:15 | disposition home or self-care (01) ==
LOC: PREOP 08:47
PROVIDERS: ATTEND Surgery
DX: Z01.812 Encounter for preprocedural laboratory examination (principal); K43.5 Parastomal hernia without obstruction or gangrene
CPT/HCPCS: 36415; 85025; 87081

== ENCOUNTER 2017-02-17 22:54 | Inpatient (IN) | payer OTHER ==
[~2017-02-17] VITALS: Ht 167.6 cm; Wt 115.7 kg
[2017-02-17] MEDS ORDERED: fentaNYL INJECTION 100 MCG/2 ML AMP ONE (23:09)
[2017-02-17] MEDS ORDERED: ONDANSETRON 4 MG/2 ML (SDV) Z0FRAN ONE (23:09)
[2017-02-17] MEDS ORDERED: LACTATED RINGERS 1,000 ML IV ONE (23:13)
[2017-02-17] MEDS ORDERED: fentaNYL INJECTION 100 MCG/2 ML AMP IVP STA (23:13)
[2017-02-17] MEDS ORDERED: ONDANSETRON 4 MG/2 ML (SDV) Z0FRAN IVP ONE (23:15)
[2017-02-17] MEDS ORDERED: IOHEXOL 350 MG/ML 100 ML (OMNIPAQUE 350) VIAL IV ONE (23:30)
[2017-02-17] MEDS ORDERED: NS 100 ML (IVPB) BAG IV ONE (23:30)
[2017-02-17 23:37] LABS: BASOPHILS # (AUTO) 0.1 10^3/uL (0.0-0.1); BASOPHILS % (AUTO) 1 % (0-10); EOSINOPHILS # (AUTO) 0.2 10^3/uL (0.0-0.3); EOSINOPHILS % (AUTO) 2 % (0-10); LYMPHOCYTES # (AUTO) 3.2 X 10^3 (1.0-4.0); LYMPHOCYTES % (AUTO) 34 % (12-44); MEAN CORPUSCULAR HEMOGLOBIN 30 PG (25-34); MEAN CORPUSCULAR HGB CONC 34 G/DL (32-36); MEAN CORPUSCULAR VOLUME 88 FL (80-99); MEAN PLATELET VOLUME 10.2 FL (7.4-10.4); MONOCYTES # (AUTO) 0.9 X 10^3 (0.0-1.0); MONOCYTES % (AUTO) 10 % (0-12); NEUTROPHILS # (AUTO) 4.9 X 10^3 (1.8-7.8); NEUTROPHILS % (AUTO) 54 % (42-75); PLATELET COUNT 226 10^3/uL (130-400); RED BLOOD COUNT 4.88 10^6/uL (4.35-5.85); RED CELL DISTRIBUTION WIDTH 12.7 % (10.0-14.5); WHITE BLOOD COUNT 9.2 10^3/uL (4.3-11.0)
[2017-02-18] MEDS ORDERED: NS 100 ML (IVPB) BAG IV ONE
[2017-02-18] MEDS ORDERED: IOHEXOL 350 MG/ML 100 ML (OMNIPAQUE 350) VIAL IV ONE
[2017-02-18 00:05] LABS: ALANINE AMINOTRANSFERASE 55 U/L (0-55); ALBUMIN 3.9 GM/DL (3.2-4.5); AMYLASE 40 U/L (25-125); ANION GAP 11 MMOL/L (5-14); ASPARTATE AMINO TRANSFERASE 28 U/L (5-34); BILIRUBIN,TOTAL 0.7 MG/DL (0.1-1.0); BLOOD UREA NITROGEN 15 MG/DL (7-18); BUN/CREATININE RATIO 17; CALCIUM 8.9 MG/DL (8.5-10.1); CARBON DIOXIDE 24 MMOL/L (21-32); CHLORIDE 106 MMOL/L (98-107); CREATININE SERUM 0.88 MG/DL (0.60-1.30); GFR ESTIMATED > 60; GLUCOSE 113 MG/DL (70-105); LIPASE 10 U/L (8-78); POTASSIUM 4.1 MMOL/L (3.6-5.0); SODIUM 141 MMOL/L (135-145); TOTAL PROTEIN 6.9 GM/DL (6.4-8.2)
[2017-02-18] MEDS ORDERED: morphine INJ 10 MG/ML 1ML (SYR OR VIAL) IVP STA ×2 (00:16→00:43)
[2017-02-18] MEDS ORDERED: ONDANSETRON 4 MG/2 ML (SDV) Z0FRAN IVP ONE (00:30)
[2017-02-18 00:38] LABS: BILIRUBIN,URINE NEGATIVE (NEGATIVE); KETONES,URINE NEGATIVE (NEGATIVE); LEUKOCYTE ESTERASE ,URINE NEGATIVE (NEGATIVE); NITRITE,URINE NEGATIVE (NEGATIVE); PH,URINE 5 (5-9); PROTEIN,URINE NEGATIVE (NEGATIVE); UROBILINOGEN,URINE NORMAL (NORMAL)
[2017-02-18 00:45] LABS: SQUAMOUS EPITHELIAL CELL,UR RARE /HPF
[2017-02-18] MEDS ORDERED: ORPHENADRINE 60 MG/2 ML (NORFLEX) AMP IV ONE (00:45)
[2017-02-18] MEDS ORDERED: HURRICAINE EXT TUBE (BENZOCAINE) ONE (01:07)
[2017-02-18] MEDS ORDERED: HURRICAINE EXT TUBE (BENZOCAINE) XX ONE (01:30)
[2017-02-18] MEDS ORDERED: fentaNYL INJECTION 100 MCG/2 ML AMP IVP STA (01:39)
[2017-02-18 01:44] VITALS: BP 146/94
[2017-02-18] MEDS: D5 1/2 NS W/KCL 20 MEQ/L 1,000 ML IV SCH ×3 (02:14→18:28)
[2017-02-18] MEDS ORDERED: morphine INJ 10 MG/ML 1ML (SYR OR VIAL) IV PRN ×2 (02:15→15:45)
--- NOTE | 2017-02-18 02:45 | ED Abdominal Pain ---
General Chief Complaint: Abdominal/GI Problems Stated Complaint: ABDOMINAL HERNIA WITH SMALL BOWEL OBSTRUCTION Nursing Triage Note: PT TO ED 5 W/ FOR C/O ABD PAIN, CHRONIC, WORSE THIS EVENING AT 1700. DOES REPORT VOMITING X3. ALSO REPORTS HE IS SCHEDULED FOR SURGERY AT 0900 TOMORROW AM FOR A HERNIA REPAIR Sepsis Screen: No Definite Risk Source of Information: Patient History of Present Illness Time Seen By Provider: 23:05 Initial Comments PT ARRIVES VIA POV FROM HOME PT C/O SEVERE ABDOMINAL PAIN SINCE 1700 TONIGHT, AND BECAME PALE AND DIAPHORETIC TOOK 2 PERCOCET WITHOUT RELIEF C/O NAUSEA AND VOMITED SEVERAL TIMES TONIGHT NO DIARRHEA, HAD A BM THIS AM LAST ATE YESTERDAY , HAS BEEN ON CLEAR LIQUIDS TODAY PT HAS LARGE RECURRENT LEFT ABDOMINAL HERNIA WELL A PERIUMBILICAL HERNIA , AND IS TO HAVE SURGERY IN THE MORNING BY DR. MCCRAY. HAS ONGOING PAIN BECAUSE OF THE HERNIA, AND TAKES PERCOCET ON A FAIRLY REGULAR BASIS NO FEVER PCP: Allergies and Home Medications Allergies Coded Allergies: No Known Drug Allergies (Unverified , 07/17/16) Home Medications Oxycodone HCl/Acetaminophen 1 Each Tablet, 1-2 TAB PO EVERY 4-6 HOURS PRN for PAIN-MODERATE, (Reported) Zolpidem Tartrate 10 Mg Tablet, 10 MG PO HS PRN for INSOMNIA, (Reported) Review of Systems Constitutional: diaphoresis Respiratory: No Symptoms Reported Cardiovascular: No Symptoms Reported Gastrointestinal: See HPI, Abdomen Distended, Abdominal Pain, Denies Constipated, Denies Diarrhea, Nausea, Poor Appetite, Vomiting Genitourinary: No Symptoms Reported Musculoskeletal: no symptoms reported Skin: see HPI Psychiatric/Neurological: No Symptoms Reported Endocrine: No Symptoms Reported Hematologic/Lymphatic: No Symptoms Reported Past [id number] Hx Patient Social History Alcohol Use: Occasionally Uses Number of Drinks Today: GG Alcohol Beverage of Choice: Whiskey, [place] Recreational Drug Use: No Smoking Status: Former Smoker Type Used: Cigarettes Former Smoker, Quit: Jan 20, 2001 2nd Hand Smoke Exposure: No Recent Foreign Travel: No Contact w/Someone Who Travel: No Recent Infectious Disease Expo: No Recent Hopitalizations: Yes Physical Abuse: No Sexual Abuse: No Mistreated: No Fear: No Immunizations Up To Date Tetanus Booster (TDap): Unknown Seasonal Allergies Seasonal Allergies: No Surgeries History of Surgeries: Yes (BOWEL RESECTION X 2 WITH SIGMOID COLON REMOVAL WITH COLOSTOMY / COLOSTOMY REVERSAL; REPAIR OF PARASTOMAL HERNIA 09/03/16; DRAIN OF INTRA-ABDOMINAL ABSCESS 09/30/16; NASAL SURGERY) Surgeries: Abdominal, Bowel Surgery, Gallbladder Respiratory History of Respiratory Disorde: No Currently Using CPAP: No Currently Using BIPAP: No Cardiovascular History of Cardiac Disorders: No Neurological History of Neurological Disord: No Reproductive System Hx Reproductive Disorders: No Sexually Transmitted Disease: No HIV/AIDS: No Genitourinary History of Genitourinary Disor: No Gastrointestinal History of Gastrointestinal Di: Yes (BOWEL RESECTION X2 - REMOVAL SIG COLON- COLOSTOMY WITH REVERSAL; PARASTOMAL HERNIAS) Gastrointestinal Disorders: Abdominal Hernia, Diverticulosis Musculoskeletal History of Musculoskeletal Dis: No Endocrine History of Endocrine Disorders: No HEENT History of HEENT Disorders: No Loss of Vision: Denies Hearing Impairment: Denies Cancer History of Cancer: No Psychosocial History of Psychiatric Problem: No Suicide Risk Score: 0 Integumentary History of Skin or Integumenta: No Blood Transfusions History of Blood Disorders: No Adverse Reaction to a Blood Tr: No (N/A) Family Medical History Family Medial History: Patient reports no known family medical history. Physical Exam Vital Signs VS - Last 72 Hours, by Label 02/17/17 23:02 Temp 96.7 Pulse 72 Resp 20 B/P (MAP) 121/81 Pulse Ox 99 O2 Delivery Room Air Capillary Refill : Less Than 3 Seconds General Appearance: other (APPEARS TO BE IN PAIN) Respiratory: normal breath sounds, no respiratory distress, no accessory muscle use Cardiovascular: regular rate, rhythm, no murmur Gastrointestinal: soft, abnormal bowel sounds (DECREASED), hernia (MASSIVE RIGHT LOWER ABDOMINAL HERNIA, WHICH IS SOFT,BUT VERY TENDER TO PALPATION. HAS A SMALLER PERIUMBILICAL HERNIA, WHICH IS ALSO SOFT, AND LESS TENDER. 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, no motor/sensory deficits, alert, oriented x 3 Skin: normal color, warm/dry Progress/Results/Core Measures Results/Orders Lab Results Laboratory Tests Test 02/17/17 23:20 02/18/17 00:16 Range/Units White Blood Count 9.2 4.3-11.0 10^3/uL Red Blood Count 4.88 4.35-5.85 10^6/uL Hemoglobin 14.7 13.3-17.7 G/DL Hematocrit 43 40-54 % Mean Corpuscular Volume 88 80-99 FL Mean Corpuscular Hemoglobin 30 25-34 PG Mean Corpuscular Hemoglobin Concent 34 32-36 G/DL Red Cell Distribution Width 12.7 10.0-14.5 % Platelet Count 226 130-400 10^3/uL Mean Platelet Volume 10.2 7.4-10.4 FL Neutrophils (%) (Auto) 54 42-75 % Lymphocytes (%) (Auto) 34 12-44 % Monocytes (%) (Auto) 10 0-12 % Eosinophils (%) (Auto) 2 0-10 % Basophils (%) (Auto) 1 0-10 % Neutrophils # (Auto) 4.9 1.8-7.8 X 10^3 Lymphocytes # (Auto) 3.2 1.0-4.0 X 10^3 Monocytes # (Auto) 0.9 0.0-1.0 X 10^3 Eosinophils # (Auto) 0.2 0.0-0.3 10^3/uL Basophils # (Auto) 0.1 0.0-0.1 10^3/uL Sodium Level 141 135-145 MMOL/L Potassium Level 4.1 3.6-5.0 MMOL/L Chloride Level 106 98-107 MMOL/L Carbon Dioxide Level 24 21-32 MMOL/L Anion Gap 11 5-14 MMOL/L Blood Urea Nitrogen 15 7-18 MG/DL Creatinine 0.88 0.60-1.30 MG/DL Estimat Glomerular Filtration Rate > 60 BUN/Creatinine Ratio 17 Glucose Level 113 H 70-105 MG/DL Calcium Level 8.9 8.5-10.1 MG/DL Total Bilirubin 0.7 0.1-1.0 MG/DL Aspartate Amino Transf (AST/SGOT) 28 5-34 U/L Alanine Aminotransferase (ALT/SGPT) 55 0-55 U/L Alkaline Phosphatase 68 40-136 U/L Total Protein 6.9 6.4-8.2 GM/DL Albumin 3.9 3.2-4.5 GM/DL Amylase Level 40 25-125 U/L Lipase 10 8-78 U/L Urine Color YELLOW Urine Clarity CLEAR Urine pH 5 5-9 Urine Specific [place] 1.015 L 1.016-1.022 Urine Protein NEGATIVE NEGATIVE Urine Glucose (UA) NEGATIVE NEGATIVE Urine Ketones NEGATIVE NEGATIVE Urine Nitrite NEGATIVE NEGATIVE Urine Bilirubin NEGATIVE NEGATIVE Urine Urobilinogen NORMAL NORMAL MG/DL Urine Leukocyte Esterase NEGATIVE NEGATIVE Urine RBC (Auto) NEGATIVE NEGATIVE Urine RBC NONE /HPF Urine WBC NONE /HPF Urine Squamous Epithelial Cells RARE /HPF Urine Crystals NONE /LPF Urine Bacteria NEGATIVE /HPF Urine Casts NONE /LPF Urine Mucus SMALL H /LPF Urine Culture Indicated NO My Orders Orders - GISELA YIN DO Fentanyl Injection (Sublimaze Injection (02/17/17 23:09) Ondansetron Injection (Zofran Injectio (02/17/17 23:09) Saline Lock/Iv-Start (02/17/17 23:13) Monitor-Rhythm Ecg Trace Only (02/17/17 23:13) Ct Abdomen/Pelvis W (02/17/17 23:13) Amylase (02/17/17 23:13) Cbc With Automated Diff (02/17/17 23:13) Comprehensive Metabolic Panel (02/17/17 23:13) Lipase (02/17/17 23:13) Ua Culture If Indicated (02/17/17 23:13) Saline Lock/Iv-Start (02/17/17 23:13) Lactated Ringers (Lr 1000 Ml Iv Solution (02/17/17 23:13) Ondansetron Injection (Zofran Injectio (02/17/17 23:15) Fentanyl Injection (Sublimaze Injection (02/17/17 23:13) Acute Abd Series (02/17/17 23:13) Iohexol Injection (Omnipaque 350 Mg/Ml 1 (02/17/17 23:30) Ns (Ivpb) (Sodium Chloride 0.9% Ivpb Bag (02/17/17 23:30) Iohexol Injection (Omnipaque 350 Mg/Ml 1 (02/18/17 00:00) Ns (Ivpb) (Sodium Chloride 0.9% Ivpb Bag (02/18/17 00:00) Morphine Injection (Morphine Injection (02/18/17 00:16) Ondansetron Injection (Zofran Injectio (02/18/17 00:30) Morphine Injection (Morphine Injection (02/18/17 00:43) Orphenadrine Injection (Norflex Injectio (02/18/17 00:45) Medications Given in ED Current Medications Medications Dose Ordered Sig/Leanna Route Start Time Stop Time Status Last Admin Dose Admin Iohexol 100 ml ONCE ONCE IV 02/17/17 23:30 02/18/17 01:08 DC 02/17/17 23:55 100 ML Lactated Ringer's 1,000 ml @ 0 mls/hr Q0M ONCE IV 02/17/17 23:13 02/17/17 23:24 DC 02/17/17 23:30 1,000 MLS/HR Ondansetron HCl 8 mg ONCE ONCE IVP 02/17/17 23:15 02/17/17 23:24 DC 02/17/17 23:24 8 MG Orphenadrine Citrate 60 mg ONCE ONCE IV 02/18/17 00:45 02/18/17 00:46 DC 02/18/17 00:51 60 MG Sodium Chloride 100 ml ONCE ONCE IV 02/17/17 23:30 02/18/17 01:08 DC 02/17/17 23:55 80 ML Vital Signs/I&O Vital Sign - Last 12Hours 02/17/17 23:02 Temp 96.7 Pulse 72 Resp 20 B/P (MAP) 121/81 Pulse Ox 99 O2 Delivery Room Air Blood Pressure Mean: 94 Progress Note : Progress Note NAUSEA IMPROVED WITH MEDICATIONS PAIN CONTINUED TO WORSEN 0044--PAIN IS BECOMING SEVERE AGAIN AND LARGER HERNIA APPEARS TO BE GETTING LARGER AND OVERLYING SKIN IS ERYTHEMATOUS--STILL VERY TENDER TO PALPATION ,BUT IS STILL SOFT CONTINUES TO HAVE PAIN AND FEELING THAT HERNIA IS GETTING LARGER NG TUBE PLACED PRIOR TO TRANSFER TO THE FLOOR Diagnostic Imaging Comments ACUTE ABDOMEN XRAYS--NON-SPECIFIC BOWEL GAS, PENDING RADIOLOGIST REVIEW CT ABDOMEN/PELVIS--DILATED SMALL BOWEL LOOPS WITHIN LEFT LATERAL HERNIA AND PROXIMAL SMALL BOWEL, WITH DISTAL LOOPS OF SMALL BOWEL APPEAR COLLAPSED-- PARTIAL SBO VS EARLY HIGH GRADE OBSTRUCTION. LEFT SPIGELIAN HERNIA IS ALSO SEEN WITH NON-DISTENDED/COLLAPSED LOOPS OF SMALL BOWEL, AND ADDITIONAL MID LOWER ANTERIOR ABDOMINAL WALL HERNIA IS SEEN WITH NON-DISTENDED SMALL BOWEL LOOPS-- PER [facility] VIA FAX @ [phone] Reviewed: Reviewed by Me Departure Communication (Admissions) Progress Notes [id number]--SPOKE WITH DR. MARTINEZ, WILL ADMIT PT TO DR. MCCRAY--I WILL CALL HIM BACK WITH CT RESULTS 103--SPOKE WITH AGAIN. ADVISES NG TUBE AND WILL CONTINUE WITH PREVIOUS PLANS FOR ADMIT TO , AND PROCEED WITH SURGERY PLANNED TOMORROW BY DR. MCCRAY. Impression Impression: Primary Impression: SMALL BOWEL OBSTRUCTION IN ABDOMINAL HERNIA Additional Impression: MULTIPLE ABDOMINAL HERNIAS Disposition: ADMITTED INPATIENT Condition: Stable Admissions Decision to Admit Reason: Admit from ER (General) Decision to Admit/Date: Feb 18, 2017 Time/Decision to Admit Time: 01:05 Departure-Patient Inst. Referrals: STEFFI FRAGOSO MD (PCP/Family) Primary Care Physician GISELA YIN DO Feb 18, 2017 02:45
[2017-02-18 03:00] VITALS: BP 127/63
[2017-02-18 05:00] VITALS: BP 144/82
[2017-02-18] MEDS: ONDANSETRON 4 MG/2 ML (SDV) Z0FRAN IV PRN ×2 (05:50→20:39)
[2017-02-18 06:11] LABS: BASOPHILS % (AUTO) 0 % (0-10); EOSINOPHILS # (AUTO) 0.1 10^3/uL (0.0-0.3); EOSINOPHILS % (AUTO) 1 % (0-10); LYMPHOCYTES # (AUTO) 1.6 X 10^3 (1.0-4.0); LYMPHOCYTES % (AUTO) 22 % (12-44); MEAN CORPUSCULAR HEMOGLOBIN 30 PG (25-34); MEAN CORPUSCULAR HGB CONC 34 G/DL (32-36); MEAN CORPUSCULAR VOLUME 90 FL (80-99); MEAN PLATELET VOLUME 10.4 FL (7.4-10.4); MONOCYTES # (AUTO) 0.6 X 10^3 (0.0-1.0); MONOCYTES % (AUTO) 9 % (0-12); NEUTROPHILS # (AUTO) 4.8 X 10^3 (1.8-7.8); NEUTROPHILS % (AUTO) 67 % (42-75); PLATELET COUNT 217 10^3/uL (130-400); RED BLOOD COUNT 4.85 10^6/uL (4.35-5.85); RED CELL DISTRIBUTION WIDTH 12.8 % (10.0-14.5); WHITE BLOOD COUNT 7.1 10^3/uL (4.3-11.0)
[2017-02-18 06:49] LABS: ALANINE AMINOTRANSFERASE 211 U/L (0-55); ALBUMIN 3.9 GM/DL (3.2-4.5); ANION GAP 9 MMOL/L (5-14); ASPARTATE AMINO TRANSFERASE 198 U/L (5-34); BILIRUBIN,TOTAL 1.1 MG/DL (0.1-1.0); BLOOD UREA NITROGEN 12 MG/DL (7-18); BUN/CREATININE RATIO 14; CALCIUM 8.6 MG/DL (8.5-10.1); CARBON DIOXIDE 23 MMOL/L (21-32); CHLORIDE 106 MMOL/L (98-107); CREATININE SERUM 0.83 MG/DL (0.60-1.30); GFR ESTIMATED > 60; GLUCOSE 153 MG/DL (70-105); POTASSIUM 4.3 MMOL/L (3.6-5.0); SODIUM 138 MMOL/L (135-145); TOTAL PROTEIN 6.8 GM/DL (6.4-8.2)
--- NOTE | 2017-02-18 06:56 | Diagnostic Imaging Report ---
INDICATION: Tube placement. TECHNIQUE: Single view chest 1:33 AM. CORRELATION STUDY: 02/17/2017 FINDINGS: Since prior study, gastric tube is in place passing below the left hemidiaphragm. Remainder of the examination is generally stable. Cardiac enlargement without failure. No infiltrate. IMPRESSION: 1. Gastric tube has been placed with tip likely in the region of the body of the stomach. Dictated by: Dictated on workstation # [id number]
--- NOTE | 2017-02-18 07:30 | Diagnostic Imaging Report ---
INDICATION: Lower abdominal pain. TECHNIQUE: Single view chest with supine and upright radiographs of the abdomen. 11:52 PM CORRELATION STUDY: Chest 10/01/2016 FINDINGS: Frontal radiograph of the chest demonstrates no acute abnormality. Cholecystectomy clips in the right upper quadrant. There are a few gas filled loops of small bowel present, nonspecific. There is a somewhat irregular gas collections over the left lateral abdominal wall. This may be owing to rotation of the patient. Possibility of abdominal wall hernia defect in this region would be difficult to exclude. IMPRESSION: 1. Negative for acute cardiopulmonary abnormality. 2. Irregular gas collections over the lateral left abdominal wall. This could be owing to some rotation of the patient. Possibility of abdominal wall hernia with herniated bowel over the left abdomen however would be difficult to exclude on this study. Clinical correlation is recommended. Dictated by: Dictated on workstation # [id number]
[2017-02-18] MEDS: fentaNYL INJECTION 100 MCG/2 ML AMP IV PRN ×3 (07:33→21:31)
--- NOTE | 2017-02-18 07:52 | Diagnostic Imaging Report ---
PROCEDURE: CT abdomen and pelvis with contrast. TECHNIQUE: Multiple contiguous axial images were obtained through the abdomen and pelvis after administration of intravenous contrast. INDICATION: Abdominal pain with nausea and vomiting CORRELATION STUDY: 12/23/2016 FINDINGS: Lung bases are clear. There is a rather pronounced hepatic steatosis. Spleen, pancreas and adrenal glands unremarkable. The gallbladder absent with clips in the fossa. Kidneys with normal enhancement. Abdominal aorta normal in contour. Mild gynecomastia suggested. There is a air fluid filled mildly dilated small bowel present measuring up to 3 cm in diameter. Some of the dilated small bowel loops do enter a left lateral anterior abdominal wall hernia. There does appear to be some partially collapsed distal small bowel present. Overall constellation of findings does suggest partial small bowel obstruction. Early high degree bowel obstruction would be difficult to exclude. Additional left probable spiculated hernia is also noted containing nondistended mostly collapsed small bowel loops. Additional mid lower intra-abdominal hernia is also present containing mildly nondistended small bowel loops. There is additional postop changes noted involving the anterior abdominal wall. Surgical change of the sigmoid colon with anastomotic suture line present. Urinary bladder unremarkable. Prostate gland unremarkable. IMPRESSION: 1. Multiple abdominal wall hernia defects. There is some air-fluid mildly dilated small bowel present measuring up to 3 cm. This demonstrates a left lateral anterior abdominal wall hernia raising concern for likely early or partial small bowel obstruction. Additional abdominal wall hernia defects are present as well containing additional loops of bowel. 2. Hepatic steatosis. A preliminary report was provided by [facility]. Dictated by: Dictated on workstation # [id number]
[2017-02-18 08:00] VITALS: BP 116/81
[2017-02-18] MEDS: PANTOPRAZOLE 40 MG/10 ML (PROTONIX) VIAL IV SCH (08:45)
[2017-02-18] MEDS ORDERED: metroNIDAZOLE 500MG/100ML IVPB 100 ML IV ONE (09:30)
[2017-02-18] MEDS ORDERED: ceFAZolin 2 GM/50 ML NS 50 ML IV ONE ×2 (09:30→15:00)
[2017-02-18] MEDS ORDERED: LACTATED RINGERS 1,000 ML IV ONE ×2 (09:33→13:37)
[2017-02-18] MEDS ORDERED: SEVOFLURANE (ULTANE) 15 ML INHAL SOLN ONE ×20 (09:33→16:47)
[2017-02-18] MEDS ORDERED: proPOfol 200 MG/20 ML (DIPRIVAN) VIAL IV ONE ×2 (09:33→15:08)
[2017-02-18] MEDS ORDERED: ROCURONIUM 50 MG/5 ML (ZEMURON) VIAL IV ONE ×3 (09:33→13:12)
[2017-02-18] MEDS ORDERED: LIDOCAINE PF 2% 5 ML (XYLOCAINE) VIAL ONE (09:33)
[2017-02-18] MEDS ORDERED: fentaNYL INJECTION 100 MCG/2 ML AMP ONE ×4 (09:33→15:26)
[2017-02-18] MEDS ORDERED: MIDAZOLAM 2 MG/2 ML (VERSED) VIAL ONE (09:33)
[2017-02-18] MEDS ORDERED: DEXAMETHASONE 10 MG/ML (DECADRON) 1 ML VIAL ONE (09:33)
[2017-02-18] MEDS ORDERED: ONDANSETRON 4 MG/2 ML (SDV) Z0FRAN ONE ×2 (09:33→14:56)
[2017-02-18] MEDS ORDERED: fentaNYL INJECTION 250 MCG/5 ML AMP ONE (09:34)
[2017-02-18] MEDS ORDERED: IBUP-30 PO (09:46)
[2017-02-18] MEDS ORDERED: BUP/EPI 0.5% 1:200,000 (MARCAINE) 10ML VIAL IJ ONE (09:46)
[2017-02-18] MEDS ORDERED: OXYC-464 PO (09:46)
[2017-02-18] MEDS: LACTATED RINGERS 1,000 ML IV PRN ×2 (10:06→12:00)
[2017-02-18] MEDS ORDERED: morphine INJ 10 MG/ML 1ML (SYR OR VIAL) ONE (14:56)
[2017-02-18] MEDS ORDERED: MEPERIDINE (DEMEROL) INJ 50 MG/ML ONE (14:56)
[2017-02-18] MEDS ORDERED: HYDROmorphone (DILAUDID) 2 MG/ML VIAL ONE (14:56)
--- NOTE | 2017-02-18 15:36 | Operative Report ---
Operative Report Date of Procedure/Surgery Feb 18, 2017 Surgeon (s) JOLENE MCCRAY MD Agricultural Inspector (s): Not applicable Post-Operative Diagnosis Same Procedure Performed Robotic assisted repair with biologic mesh Description of Procedure Anesthesia Type: General Estimated blood loss (mL): Minimal Specimen(s) collected/removed None Description of the Procedure Indication for procedure: This gentleman presented with a large colostomy site hernia over the left lower quadrant of his abdomen loops of small bowel contained within it. He was offered minimally invasive repair with primary closure of the defect and reinforcement with a biologic mesh. Informed consent was obtained after reviewing the operative details and highlighting increased risk of recurrence, wound infection and Cardiolite cardiorespiratory dysfunction. Description of procedure: He was placed supine on the operative table and general anesthesia induced using an endotracheal tube. 2 g of Ancef was administered intravenously as prophylaxis against wound infection. A dose of the same antibiotic was. 4 hours into the operation. Sequential compression devices were placed around his legs, to minimize the risk of venous thrombosis. A Rosenthal catheter was placed in anticipation of prolonged surgery. It was removed at the end of the operation. Abdomen was prepared and draped in the usual sterile manner. Pneumoperitoneum was established using a Veress needle introduced over the right subcostal margin , along the midaxillary line. Intra-abdominal pressure was maintained at 15 mmHg during the initial part of the operation. A 12 mm trocar was placed and anatomy visualized using the high-definition, 3-dimensional laparoscope social 100 with da Over[employer].fm system. Laparoscopic survey confirmed omentum entrapped within 2 separate defects, each measuring 8 cm in length and at least 6 cm in width. Under direct view, I placed another 12 mm trocar over the right side of the abdomen, along the midaxillary line, followed by an 8 mm trocar over the right lower quadrant. The robotic system was then docked in place. Omentum was taken down using robotic scissors revealing the defects daily. They were approximated initially using #2 Prolene sutures brought out across the anterior abdominal wall and held under tension using hemostats. The defects were then closed primarily with 0 V LOC sutures without much tension. This was reinforced with a biologic mesh (STRATTICE), measuring 10 x 16 cm in diameter. The edges of the mesh were secured using 2 of the left sutures with robotic assistance. Hemostasis was satisfactory and the operation concluded. Incisions were closed using 4-0 Vicryl in a subcuticular fashion. An abdominal binder was placed to minimize the tension on the repair. He tolerated the procedure well, was extubated in the operating room and taken to the recovery room in a stable condition. Findings of the Procedure See operative report Allergies and Home Medications Allergies Coded Allergies: No Known Drug Allergies (Unverified , 07/17/16) Home Medications Ibuprofen 200 Mg Tablet, 800 MG PO Q8H PRN for PAIN-MILD, (Reported) TAKES 4 (200MG) TABLETS Oxycodone HCl/Acetaminophen 1 Each Tablet, 1 TAB PO Q4H PRN for PAIN-MODERATE, ( Reported) JOLENE MCCRAY MD Feb 18, 2017 3:36 pm
[2017-02-18] MEDS ORDERED: CELECOXIB 100 MG (CeleBREX) CAP PO ONE (15:45)
[2017-02-18] MEDS ORDERED: PREGABALIN 75 MG (LYRICA) CAP PO ONE (15:45)
[2017-02-18] MEDS ORDERED: oxyCODONE ER 10 MG (OxyCONTIN CR) TAB PO ONE (15:45)
[2017-02-18] MEDS ORDERED: ACETAMINOPHEN 500 MG TAB (TYLENOL) PO ONE (15:45)
[2017-02-18] MEDS ORDERED: ONDANSETRON 4 MG/2 ML (SDV) Z0FRAN IVP PRN (16:30)
[2017-02-18] MEDS ORDERED: fentaNYL INJECTION 100 MCG/2 ML AMP IVP PRN (16:30)
[2017-02-18] MEDS ORDERED: morphine INJ 10 MG/ML 1ML (SYR OR VIAL) IVP PRN (16:30)
[2017-02-18 18:00] VITALS: BP 142/80
[2017-02-18] MEDS ORDERED: ACETAMINOPHEN 500 MG TAB (TYLENOL) PO NR (18:31)
[2017-02-18] MEDS ORDERED: CELECOXIB 100 MG (CeleBREX) CAP PO NR (18:31)
[2017-02-18] MEDS ORDERED: oxyCODONE ER 10 MG (OxyCONTIN CR) TAB PO NR (18:32)
[2017-02-18 19:00] VITALS: BP 161/90
[2017-02-18] MEDS: KETOROLAC 15 MG/ML VIAL IV SCH (19:42)
[2017-02-18] MEDS: fentaNYL INJECTION 100 MCG/2 ML AMP IVP PRN (23:12)
[2017-02-19] VITALS: BP 149/77
[2017-02-19] MEDS: D5 1/2 NS W/KCL 20 MEQ/L 1,000 ML IV SCH ×4 (01:25→18:18)
[2017-02-19] MEDS: ONDANSETRON 4 MG/2 ML (SDV) Z0FRAN IV PRN ×4 (01:26→16:44)
[2017-02-19] MEDS: KETOROLAC 15 MG/ML VIAL IV SCH ×5 (01:28→23:24)
[2017-02-19] MEDS: fentaNYL INJECTION 100 MCG/2 ML AMP IVP PRN ×7 (01:31→18:40)
[2017-02-19 04:00] VITALS: BP 129/68
[2017-02-19] MEDS: PANTOPRAZOLE 40 MG/10 ML (PROTONIX) VIAL IV SCH (07:46)
[2017-02-19 08:00] VITALS: BP 128/73
--- NOTE | 2017-02-19 11:47 | Progress Note-Standard ---
Standard Progress Note Progress Notes/Assess & Plan Date Seen by Provider: Feb 19, 2017 Time Seen by Provider: 09:15 Progress/Assessment & Plan Pain control much improved. Patient reports an episode of severe retching followed by vomiting last night and sensing disruption of his repair. Obviously , this cannot be substantiated at this point. Examination is unrewarding and I have reassured him at this point. I'll encourage him to ambulate and use incentive spirometry. He would benefit from an additional day of intubation management. Reglan would be used to promote motility Final Diagnosis Colostomy site hernia JOLENE MCCRAY MD Feb 19, 2017 11:47
[2017-02-19 12:00] VITALS: BP 148/82
[2017-02-19] MEDS: METOCLOPRAMIDE INJ 10 MG/2 ML (REGLAN) IVP SCH ×3 (12:01→23:23)
--- NOTE | 2017-02-19 13:31 | Anesthesia-General Post-Op ---
General Patient Condition Mental Status/LOC: Same as Preop Cardiovascular: Satisfactory Nausea/Vomiting: Absent Respiratory: Satisfactory Pain: Controlled Complications: Absent Post Op Complications Complications None Follow Up Care/Instructions Patient Instructions None needed. Anesthesia/Patient Condition Patient Condition Patient is doing well, no complaints, stable vital signs, no apparent adverse anesthesia problems. No complications reported per nursing. EMERSON LIN CRNA Feb 19, 2017 13:31
[2017-02-19 16:55] VITALS: BP 109/66
[2017-02-19 20:15] VITALS: BP 122/57
[2017-02-20 00:15] VITALS: BP 105/58
[2017-02-20 04:18] VITALS: BP 117/62
[2017-02-20] MEDS: KETOROLAC 15 MG/ML VIAL IV SCH ×2 (05:12→11:36)
[2017-02-20] MEDS: METOCLOPRAMIDE INJ 10 MG/2 ML (REGLAN) IVP SCH ×2 (05:12→11:36)
[2017-02-20] MEDS: D5 1/2 NS W/KCL 20 MEQ/L 1,000 ML IV SCH ×2 (05:15→07:39)
[2017-02-20] MEDS ORDERED: PANTOPRAZOLE 40 MG (PROTONIX) TAB PO SCH (07:00)
[2017-02-20 08:28] VITALS: BP 121/75
[2017-02-20] MEDS: fentaNYL INJECTION 100 MCG/2 ML AMP IVP PRN (08:49)
[2017-02-20] MEDS ORDERED: OXYC-197 PO (10:11)
--- NOTE | 2017-02-20 10:12 | Discharge Inst-Simple/Standard ---
Discharge Inst-Standard Discharge Medications New, Converted or Re-Newed RX: RX on Chart Patient Instructions/Follow Up Plan of Care/Instructions/FU: Abdominal binder to stay on when he is out of bed. Incentive spirometry. Follow-up in 4 weeks Activity as Tolerated: No Goal: No lifting over 10 pounds Discharge Diet: No Restrictions JOLENE MCCRAY MD Feb 20, 2017 10:12 am
[2017-02-20 12:30] VITALS: BP 114/74
--- NOTE | 2017-02-20 13:02 | Progress Note-Standard ---
Standard Progress Note Progress Notes/Assess & Plan Date Seen by Provider: Feb 20, 2017 Time Seen by Provider: 13:01 Progress/Assessment & Plan Pain control much improved. Patient reports an episode of severe retching followed by vomiting last night and sensing disruption of his repair. Obviously , this cannot be substantiated at this point. Examination is unrewarding and I have reassured him at this point. I'll encourage him to ambulate and use incentive spirometry. He would benefit from an additional day of intubation management. Reglan would be used to promote motility passing flatus. Afebrile. Incisional pain reasonably well controlled with oral medications. Could be discharged home. Final Diagnosis recurrent colostomy site hernia JOLENE MCCRAY MD Feb 20, 2017 1:02 pm
--- NOTE | 2017-02-20 13:03 | Discharge Summary ---
Diagnosis/Chief Complaint Date of Admission Feb 18, 2017 at 1:05 am Date of Discharge Discharge Date: Feb 20, 2017 Discharge Time: 13:02 Admission Diagnosis Admission Diagnosis colostomy site hernia Discharge Diagnosis same Reason Hospital Visit came in for an elective to minimally invasive repair of a colostomy site hernia using robotic assistance. Admitted during the nut cracker hours of the day of surgery due to nausea. Satisfactory postoperative recovery and his pain control is adequate. Discharge Summary Procedures robotic assisted repair of colostomy site hernia with biologic mesh Discharge Physical Examination Allergies: Coded Allergies: No Known Drug Allergies (Unverified , 07/17/16) Vitals & I&Os Vital Signs Date Time Temp Pulse Resp B/P (MAP) Pulse Ox O2 Delivery O2 Flow Rate FiO2 02/20/17 08:51 Room Air 02/20/17 08:28 97.5 70 14 121/75 95 02/19/17 16:55 1.00 Hospital Course Labs (last 24 hrs) Laboratory Tests 02/17/17 23:20: White Blood Count 9.2, Red Blood Count 4.88, Hemoglobin 14.7, Hematocrit 43, Mean Corpuscular Volume 88, Mean Corpuscular Hemoglobin 30, Mean Corpuscular Hemoglobin Concent 34, Red Cell Distribution Width 12.7, Platelet Count 226, Mean Platelet Volume 10.2, Neutrophils (%) (Auto) 54, Lymphocytes (%) (Auto) 34 , Monocytes (%) (Auto) 10, Eosinophils (%) (Auto) 2, Basophils (%) (Auto) 1, Neutrophils # (Auto) 4.9, Lymphocytes # (Auto) 3.2, Monocytes # (Auto) 0.9, Eosinophils # (Auto) 0.2, Basophils # (Auto) 0.1, Sodium Level 141, Potassium Level 4.1, Chloride Level 106, Carbon Dioxide Level 24, Anion Gap 11, Blood Urea Nitrogen 15, Creatinine 0.88, Estimat Glomerular Filtration Rate > 60, BUN/ Creatinine Ratio 17, Glucose Level 113H, Calcium Level 8.9, Total Bilirubin 0.7 , Aspartate Amino Transf (AST/SGOT) 28, Alanine Aminotransferase (ALT/SGPT) 55, Alkaline Phosphatase 68, Total Protein 6.9, Albumin 3.9, Amylase Level 40, Lipase 10 02/18/17 00:16: Urine Color YELLOW, Urine Clarity CLEAR, Urine pH 5, Urine Specific [place] 1.015L, Urine Protein NEGATIVE, Urine Glucose (UA) NEGATIVE, Urine Ketones NEGATIVE, Urine Nitrite NEGATIVE, Urine Bilirubin NEGATIVE, Urine Urobilinogen NORMAL, Urine Leukocyte Esterase NEGATIVE, Urine RBC (Auto) NEGATIVE, Urine RBC NONE, Urine WBC NONE, Urine Squamous Epithelial Cells RARE, Urine Crystals NONE , Urine Bacteria NEGATIVE, Urine Casts NONE, Urine Mucus SMALLH, Urine Culture Indicated NO 02/18/17 05:55: White Blood Count 7.1, Red Blood Count 4.85, Hemoglobin 14.7, Hematocrit 43, Mean Corpuscular Volume 90, Mean Corpuscular Hemoglobin 30, Mean Corpuscular Hemoglobin Concent 34, Red Cell Distribution Width 12.8, Platelet Count 217, Mean Platelet Volume 10.4, Neutrophils (%) (Auto) 67, Lymphocytes (%) (Auto) 22 , Monocytes (%) (Auto) 9, Eosinophils (%) (Auto) 1, Basophils (%) (Auto) 0, Neutrophils # (Auto) 4.8, Lymphocytes # (Auto) 1.6, Monocytes # (Auto) 0.6, Eosinophils # (Auto) 0.1, Basophils # (Auto) 0.0, Sodium Level 138, Potassium Level 4.3, Chloride Level 106, Carbon Dioxide Level 23, Anion Gap 9, Blood Urea Nitrogen 12, Creatinine 0.83, Estimat Glomerular Filtration Rate > 60, BUN/ Creatinine Ratio 14, Glucose Level 153H, Calcium Level 8.6, Total Bilirubin 1.1H , Aspartate Amino Transf (AST/SGOT) 198H, Alanine Aminotransferase (ALT/SGPT) 211H, Alkaline Phosphatase 90, Total Protein 6.8, Albumin 3.9 Pending Labs Laboratory Tests 02/17/17 23:20: White Blood Count 9.2, Red Blood Count 4.88, Hemoglobin 14.7, Hematocrit 43, Mean Corpuscular Volume 88, Mean Corpuscular Hemoglobin 30, Mean Corpuscular Hemoglobin Concent 34, Red Cell Distribution Width 12.7, Platelet Count 226, Mean Platelet Volume 10.2, Neutrophils (%) (Auto) 54, Lymphocytes (%) (Auto) 34 , Monocytes (%) (Auto) 10, Eosinophils (%) (Auto) 2, Basophils (%) (Auto) 1, Neutrophils # (Auto) 4.9, Lymphocytes # (Auto) 3.2, Monocytes # (Auto) 0.9, Eosinophils # (Auto) 0.2, Basophils # (Auto) 0.1, Sodium Level 141, Potassium Level 4.1, Chloride Level 106, Carbon Dioxide Level 24, Anion Gap 11, Blood Urea Nitrogen 15, Creatinine 0.88, Estimat Glomerular Filtration Rate > 60, BUN/ Creatinine Ratio 17, Glucose Level 113, Calcium Level 8.9, Total Bilirubin 0.7, Aspartate Amino Transf (AST/SGOT) 28, Alanine Aminotransferase (ALT/SGPT) 55, Alkaline Phosphatase 68, Total Protein 6.9, Albumin 3.9, Amylase Level 40, Lipase 10 02/18/17 00:16: Urine Color YELLOW, Urine Clarity CLEAR, Urine pH 5, Urine Specific [place] 1.015, Urine Protein NEGATIVE, Urine Glucose (UA) NEGATIVE, Urine Ketones NEGATIVE, Urine Nitrite NEGATIVE, Urine Bilirubin NEGATIVE, Urine Urobilinogen NORMAL, Urine Leukocyte Esterase NEGATIVE, Urine RBC (Auto) NEGATIVE, Urine RBC NONE, Urine WBC NONE, Urine Squamous Epithelial Cells RARE, Urine Crystals NONE , Urine Bacteria NEGATIVE, Urine Casts NONE, Urine Mucus SMALL, Urine Culture Indicated NO 02/18/17 05:55: White Blood Count 7.1, Red Blood Count 4.85, Hemoglobin 14.7, Hematocrit 43, Mean Corpuscular Volume 90, Mean Corpuscular Hemoglobin 30, Mean Corpuscular Hemoglobin Concent 34, Red Cell Distribution Width 12.8, Platelet Count 217, Mean Platelet Volume 10.4, Neutrophils (%) (Auto) 67, Lymphocytes (%) (Auto) 22 , Monocytes (%) (Auto) 9, Eosinophils (%) (Auto) 1, Basophils (%) (Auto) 0, Neutrophils # (Auto) 4.8, Lymphocytes # (Auto) 1.6, Monocytes # (Auto) 0.6, Eosinophils # (Auto) 0.1, Basophils # (Auto) 0.0, Sodium Level 138, Potassium Level 4.3, Chloride Level 106, Carbon Dioxide Level 23, Anion Gap 9, Blood Urea Nitrogen 12, Creatinine 0.83, Estimat Glomerular Filtration Rate > 60, BUN/ Creatinine Ratio 14, Glucose Level 153, Calcium Level 8.6, Total Bilirubin 1.1, Aspartate Amino Transf (AST/SGOT) 198, Alanine Aminotransferase (ALT/SGPT) 211, Alkaline Phosphatase 90, Total Protein 6.8, Albumin 3.9 Discharge Home Medications: Active Scripts Active Percocet 5-325 mg Tablet (Oxycodone HCl/Acetaminophen) 1 Each Tablet 1-2 Tab PO Q4H PRN Reported Advil (Ibuprofen) 200 Mg Tablet 800 Mg PO Q8H PRN TAKES 4 (200MG) TABLETS Oxycodon-Acetaminophen 7.5-325 (Oxycodone HCl/Acetaminophen) 1 Each Tablet 1 Tab PO Q4H PRN Instructions to patient/family Please see electronic discharge instructions given to patient. Clinical Quality Measures DVT/VTE Risk/Contraindication: Risk Factor Score Per Nursin RFS Level Per Nursing on Admit: 3=High JOLENE MCCRAY MD Feb 20, 2017 1:03 pm
[2017-02-20 13:31] VITALS: BP 114/74
== END 2017-02-20 13:36 | disposition home or self-care (01) | DRG 355 ==
LOC: EDUNIT# 22:54 → ER 22:56 → 4TH 02-18 01:05
PROVIDERS: ADMIT Surgery; ATTEND Surgery
PROC: 8E0W4CZ Robotic Assisted Procedure of Trunk Region, Percutaneous Endoscopic Approach (ICD-10-PCS; 2017-02-18)
PROC: 0WUF4JZ Supplement Abdominal Wall with Synthetic Substitute, Percutaneous Endoscopic Approach (ICD-10-PCS; principal; 2017-02-18 10:41)
DX: K43.0 Incisional hernia with obstruction, without gangrene (principal); Z87.891 Personal history of nicotine dependence
CPT/HCPCS: 36415; 71010; 74022; 74177; 80053; 81000; 82150; 83690; 85025; 94660; 94760; 96361; 96374; 96375; 96376

== ENCOUNTER → 2017-04-13 | Outpatient (CLI) | payer OTHER ==
[~2017-04-13] VITALS: Ht 167.6 cm; Wt 115.7 kg
[~2017-04-13] MED LIST changes: +IBUP-30 PO; +KETOROLAC 30 MG/ML VIAL IM ONE; +KETOROLAC 30 MG/ML VIAL ONE; +NAPR500T3 PO; -NAPR500T4 PO; +OXYC-464 PO
[2017-04-13 17:00] VITALS: BP 148/88
== END ==
LOC: SDC 16:44
PROVIDERS: ATTEND Surgery
DX: R10.9 Unspecified abdominal pain (principal)

== ENCOUNTER → 2017-05-04 | Outpatient (CLI) | payer OTHER ==
[~2017-05-04] VITALS: Ht 167.6 cm; Wt 117.9 kg
[~2017-05-04] MED LIST changes: -KETOROLAC 30 MG/ML VIAL IM ONE; -KETOROLAC 30 MG/ML VIAL ONE; -NAPR500T3 PO; +NAPR500T4 PO; +NS IV 1000 ML 1,000 ML IV ONE; +NS IV 1000 ML 1,000 ML ONE; +ONDANSETRON 4 MG/2 ML (SDV) Z0FRAN IV PRN; +ONDANSETRON 4 MG/2 ML (SDV) Z0FRAN ONE; +fentaNYL INJECTION 100 MCG/2 ML AMP ONE; +metroNIDAZOLE 500MG/100ML IVPB 100 ML IV ONE; +metroNIDAZOLE 500MG/100ML IVPB 100 ML ONE
[2017-05-04] MEDS: fentaNYL INJECTION 100 MCG/2 ML AMP IV PRN ×2 (18:04→19:09)
[2017-05-04 18:10] VITALS: BP 131/65
[2017-05-04 18:11] LABS: BASOPHILS # (AUTO) 0.1 10^3/uL (0.0-0.1); BASOPHILS % (AUTO) 1 % (0-10); EOSINOPHILS # (AUTO) 0.3 10^3/uL (0.0-0.3); EOSINOPHILS % (AUTO) 3 % (0-10); LYMPHOCYTES # (AUTO) 3.3 X 10^3 (1.0-4.0); LYMPHOCYTES % (AUTO) 39 % (12-44); MEAN CORPUSCULAR HEMOGLOBIN 31 PG (25-34); MEAN CORPUSCULAR HGB CONC 35 G/DL (32-36); MEAN CORPUSCULAR VOLUME 89 FL (80-99); MEAN PLATELET VOLUME 10.2 FL (7.4-10.4); MONOCYTES # (AUTO) 0.7 X 10^3 (0.0-1.0); MONOCYTES % (AUTO) 9 % (0-12); NEUTROPHILS # (AUTO) 4.2 X 10^3 (1.8-7.8); NEUTROPHILS % (AUTO) 49 % (42-75); PLATELET COUNT 216 10^3/uL (130-400); RED BLOOD COUNT 4.82 10^6/uL (4.35-5.85); RED CELL DISTRIBUTION WIDTH 12.5 % (10.0-14.5); WHITE BLOOD COUNT 8.4 10^3/uL (4.3-11.0)
[2017-05-04 18:20] VITALS: BP 131/65
[2017-05-04 18:32] LABS: ALANINE AMINOTRANSFERASE 68 U/L (0-55); ALBUMIN 3.8 GM/DL (3.2-4.5); ANION GAP 8 MMOL/L (5-14); ASPARTATE AMINO TRANSFERASE 30 U/L (5-34); BILIRUBIN,TOTAL 0.2 MG/DL (0.1-1.0); BLOOD UREA NITROGEN 17 MG/DL (7-18); BUN/CREATININE RATIO 20; CALCIUM 8.6 MG/DL (8.5-10.1); CARBON DIOXIDE 23 MMOL/L (21-32); CHLORIDE 106 MMOL/L (98-107); CREATININE SERUM 0.83 MG/DL (0.60-1.30); GFR ESTIMATED > 60; GLUCOSE 85 MG/DL (70-105); POTASSIUM 3.8 MMOL/L (3.6-5.0); SODIUM 137 MMOL/L (135-145); TOTAL PROTEIN 6.7 GM/DL (6.4-8.2)
[2017-05-04 19:11] VITALS: BP 136/81
== END ==
LOC: 4THo 17:41
PROVIDERS: ATTEND Nurse Practitioner Family
DX: R10.32 Left lower quadrant pain (principal)
CPT/HCPCS: 36415; 80053; 85025

== ENCOUNTER → 2017-05-04 | Outpatient (CLI) | payer OTHER ==
[~2017-05-04] MED LIST changes: +CATHETER FLUSH 10 ML SYR IV PRN; +IOHEXOL 350 MG/ML 100 ML (OMNIPAQUE 350) VIAL IV ONE; +NS 100 ML (IVPB) BAG IV ONE; -NS IV 1000 ML 1,000 ML IV ONE; -NS IV 1000 ML 1,000 ML ONE; -ONDANSETRON 4 MG/2 ML (SDV) Z0FRAN IV PRN; -ONDANSETRON 4 MG/2 ML (SDV) Z0FRAN ONE; -fentaNYL INJECTION 100 MCG/2 ML AMP ONE; -metroNIDAZOLE 500MG/100ML IVPB 100 ML IV ONE; -metroNIDAZOLE 500MG/100ML IVPB 100 ML ONE
--- NOTE | 2017-05-04 17:35 | Diagnostic Imaging Report ---
PROCEDURE: CT abdomen and pelvis with contrast. TECHNIQUE: Multiple contiguous axial images were obtained through the abdomen and pelvis after administration of intravenous contrast. INDICATION: Severe left lower quadrant pain. COMPARISON: Comparison made with prior examination from 02/18/2017. FINDINGS: The upper abdominal structures are not visualized on the dynamic phase of the contrast images. The heart size is normal. The lung bases are clear. There is fatty infiltration of the liver. The gallbladder is surgically absent. Spleen is normal. The pancreas and adrenal glands are unremarkable. Kidneys are normal. The aorta is nonaneurysmal. 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 None of these appear to be particularly obstructed or strangulated. Additionally, there is a midline pelvic hernia, also containing a few loops of bowel. These too do not appear to be obstructed or strangulated. The bladder is unremarkable. There is mild diverticular disease with some questionable inflammatory change in the upper sigmoid colon. Mild uncomplicated diverticulitis cannot be excluded. The osseous structures are unremarkable apart from minimal degenerative change. IMPRESSION: Multiple abdominal wall hernia defects again seen. These appear to contain slightly more bowel than on the prior examination. There is, however, no evidence of obstruction or strangulation. Questionable mild uncomplicated diverticulitis in the region of the upper sigmoid colon. Unchanged fatty infiltration of the liver. Dictated by: Dictated on workstation # [id number]
== END ==
LOC: RAD 16:49
PROVIDERS: ATTEND Nurse Practitioner Family
DX: K43.9 Ventral hernia without obstruction or gangrene (principal)
CPT/HCPCS: 74177

== ENCOUNTER → 2017-07-03 | Outpatient (CLI) | payer OTHER ==
[~2017-07-03] MED LIST changes: +ACHD5005 PO; -CATHETER FLUSH 10 ML SYR IV PRN; +HYDR-34 PO; -HYDR-3812 PO; -HYDR-3816 PO; -IOHEXOL 350 MG/ML 100 ML (OMNIPAQUE 350) VIAL IV ONE; -NS 100 ML (IVPB) BAG IV ONE
== END ==
LOC: LAB 11:26
PROVIDERS: ATTEND Nurse Practitioner Family
DX: Z01.818 Encounter for other preprocedural examination (principal); Z11.2 Encounter for screening for other bacterial diseases
CPT/HCPCS: 87081

== ENCOUNTER → 2017-07-24 | Outpatient (CLI) | payer OTHER ==
[~2017-07-24] MED LIST changes: +NAPR-915 PO; -NAPR500T4 PO
== END ==
LOC: LAB 13:07
PROVIDERS: ATTEND Nurse Practitioner Family
DX: Z11.2 Encounter for screening for other bacterial diseases (principal)
CPT/HCPCS: 87081

== ENCOUNTER 2017-10-15 08:50 | Outpatient (RCR) | payer OTHER | END 2017-11-30 10:59 | disposition home or self-care (01) | PROVIDERS: ATTEND Surgery | DX: Z48.815 Encounter for surgical aftercare following surgery on the digestive system (principal) ==

== ENCOUNTER 2020-08-29 19:35 | Emergency (ER) | payer OTHER ==
[~2020-08-29] VITALS: Ht 167.7 cm; Wt 114.7 kg
[~2020-08-29 19:35] MED LIST changes: -CIPR500T4 PO; +CIPR500T5 PO; +HYDR-4226 PO; -IBUP-2055 PO; +IBUP-2473 PO; +LINE600T12 PO; -LINE600T5 PO; +METR-145 PO; -METR500T21 PO; -OXYC-197 PO; -OXYC-202 PO; -OXYC-471 PO; +OXYC1TAB11 PO; +OXYC1TAB12 PO; +OXYC1TAB87 PO
--- NOTE | 2020-08-29 21:43 | ED Lower Extremity ---
General Chief Complaint: Lower Extremity Stated Complaint: R LEG INJ Nursing Triage Note: playing [employer], turned and felt "like someone hit me in the back of my calf" injury occurred at 1830 Nursing Sepsis Screen: No Definite Risk History of Present Illness Date Seen by Provider: Aug 29, 2020 Time Seen by Provider: 21:30 Initial Comments 40-year-old male was playing [employer] when he felt like someone hit him in the back of the right leg. He has had a previous injury to the left gastrocnemius that did not require surgery. He is having trouble ambulating secondary to pain. He is not taking anything prior to arrival. Onset: yesterday Pain/Injury Location: left other (Calf) Method of Injury: sports injury Modifying Factors: Improves With Rest Allergies and Home Medications Allergies Coded Allergies: No Known Drug Allergies (Unverified , 07/17/16) Home Medications Ibuprofen 200 Mg Tablet, 800 MG PO Q8H PRN for PAIN-MILD, (Reported) TAKES 4 (200MG) TABLETS Oxycodone HCl/Acetaminophen 1 Each Tablet, 1 TAB PO Q4H PRN for PAIN-MODERATE, (Reported) Oxycodone HCl/Acetaminophen 1 Each Tablet, 1-2 TAB PO Q4H PRN for PAIN-MILD TO MODERATE Prescribed by: JOLENE MCCRAY on 02/20/17 1011 Patient Home Medication List Home Medication List Reviewed: Yes Review of Systems Constitutional: no symptoms reported, see HPI Musculoskeletal: see HPI, muscle pain (Left gastrocnemius) All Other Systems Reviewed Negative Unless Noted: Yes Past Oqkjvbh-Comifm-Aagxje Hx Past Med/Social Hx: Reviewed Nursing Past Med/Soc Hx Patient Social History Alcohol Beverage of Choice: Whiskey, Payne Type Used: Cigarettes Former Smoker, Quit: Jan 20, 2001 2nd Hand Smoke Exposure: No Recent Infectious Disease Expo: No Recent Hopitalizations: Yes Immunizations Up To Date Tetanus Booster (TDap): Unknown PED Vaccines UTD: No Seasonal Allergies Seasonal Allergies: No Past Medical History Surgeries: Yes Abdominal, Bowel Surgery, Gallbladder Respiratory: No Currently Using CPAP: No Currently Using BIPAP: No Cardiac: No Neurological: No Reproductive Disorders: No Sexually Transmitted Disease: No HIV/AIDS: No Genitourinary: No Gastrointestinal: Yes Abdominal Hernia, Diverticulosis Musculoskeletal: No Endocrine: No HEENT: No Loss of Vision: Denies Hearing Impairment: Denies Cancer: No Psychosocial: No Integumentary: No Blood Disorders: No Adverse Reaction/Blood Tranf: No (N/A) Family Medical History Patient reports no known family medical history. Physical Exam Vital Signs Vital Signs - First Documented 08/29/20 20:33 Temp 36.3 Pulse 93 Resp 16 B/P (MAP) 113/72 (86) Pulse Ox 97 O2 Delivery Room Air Capillary Refill : Less Than 3 Seconds Height, Weight, BMI Height: 5'6.00" Weight: 260lbs. 0.0oz. [id number]; 40.00 BMI Method:Stated General Appearance: WD/WN, mild distress (Secondary to pain) Neck: non-tender, full range of motion, supple, normal inspection Cardiovascular: normal peripheral pulses, regular rate, rhythm, no edema Respiratory: chest non-tender, lungs clear, normal breath sounds Gastrointestinal: normal bowel sounds, non tender, soft Legs: right leg normal inspection, right leg limited range of motion (Right ankle secondary to calf pain), right leg soft tissue tenderness, right leg swelling (Gastroc), right leg other (pain with Mock test, no plantar flexion) Ankles: right ankle non-tender, right ankle normal inspection, right ankle normal range of motion, right ankle no evidence of injury Neurologic/Psychiatric: no motor/sensory deficits, alert, normal mood/affect, oriented x 3 Skin: normal color, warm/dry; No ecchymosis Progress/Results/Core Measures Results/Orders My Orders Orders - WILNER DELEON Hydrocodone/Apap 7.5/325 Tab (Lortab 7. (08/29/20 21:45) Ct Extremity Lower Left Wo (08/29/20 21:37) Rx-Tramadol Hcl (Rx-Ultram) (08/29/20 22:43) Medications Given in ED Current Medications Medications Dose Ordered Sig/Leanna Route Start Time Stop Time Status Last Admin Dose Admin Acetaminophen/ Hydrocodone Bitart 1 ea ONCE ONCE PO 08/29/20 21:45 08/29/20 21:46 DC 08/29/20 21:50 1 EA Vital Signs/I&O 08/29/20 20:33 Temp 36.3 Pulse 93 Resp 16 B/P (MAP) 113/72 (86) Pulse Ox 97 O2 Delivery Room Air Blood Pressure Mean: 86 Progress Progress Note : Time: 21:30 Progress Note Patient seen and evaluated. Will obtain CT of lower extremity determine if Achilles tendon rupture or fracture present. Will give hydrocodone 7.5 mg orally for pain. Ice pack to right calf. 2229 CT shows no fractures or acute findings. Patient reports pain is improving. [place] wrap to right ankle and calf applied. He will use crutches nonweightbearing until able to tolerate ambulation. Discharge instructions and return precautions reviewed with the patient and his . Diagnostic Imaging Diagonstic Imaging: CT Plain Films/CT/US/NM/MRI: leg Comments CT right lower leg showed no fracture or dislocation recommend MRI for follow-up soft tissue injury if no improvement. Departure Impression Primary Impression: Gastrocnemius strain Qualified Codes: S86.111A - Strain of other muscle(s) and tendon(s) of posterior muscle group at lower leg level, right leg, initial encounter Disposition: 01 HOME, SELF-CARE Condition: Improved Departure-Patient Inst. Decision time for Depature: 22:30 Referrals: DIVINE PEPPER MD (PCP) Primary Care Physician STEFFI FRAGOSO MD Patient Instructions: Achilles Tendon Rupture (DC), Muscle Strain Add. Discharge Instructions: Use crutches weightbearing as tolerated on right lower extremity. Alternate between Tylenol and ibuprofen every 4 hours as needed for pain. Follow-up with Dr. Fragoso if symptoms are not improving or worsen. Ice and elevate right lower leg for 20 minutes every 2 hours. Advance activity as tolerated. Return to the emergency department for new, urgent healthcare needs. All discharge instructions reviewed with patient and/or family. Voiced understanding. Copy Copies To 1: STEFFI FRAGOSO MD, AMY ARNP Aug 29, 2020 21:43
[2020-08-29] MEDS ORDERED: HYDROcodone/APAP 7.5 MG/325 MG (LORTAB, LORCET PLUS) TABLET PO ONE (21:45)
[2020-08-29] MEDS ORDERED: RX-TRAMADOL 50 MG (ULTRAM) TAB PPK#4 PO ONE (22:42)
[2020-08-29] MEDS ORDERED: RX-TRAMADOL 50 MG (ULTRAM) TAB PPK#4 PO STA (22:43)
[2020-08-29 22:50] VITALS: BP 115/75
--- NOTE | 2020-08-30 07:16 | Diagnostic Imaging Report ---
PROCEDURE: CT right lower extremity without contrast. TECHNIQUE: Axially acquired CT was obtained through the right lower extremity without intravenous contrast. Coronal and sagittal reformations were also performed. Auto Exposure Controls were utilized during the CT exam to meet ALARA standards for radiation dose reduction. INDICATION: Knee pain. FINDINGS: The alignment is normal. There is no fracture or dislocation. There are no lytic or sclerotic lesions. Soft tissues are unremarkable. IMPRESSION: No acute fracture or dislocation. Recommend further evaluation with MRI as it is more appropriate modality to evaluate for soft tissue injury. Dictated by: Dictated on workstation # [id number]
== END 2020-08-29 22:52 | disposition home or self-care (01) ==
LOC: EDUNIT# 19:35 → ER 19:37
DX: S86.111A Strain of other muscle(s) and tendon(s) of posterior muscle group at lower leg level, right leg, initial encounter (principal); Z87.891 Personal history of nicotine dependence; X58.XXXA Exposure to other specified factors, initial encounter; Y93.73 Activity, racquet and hand sports
CPT/HCPCS: 73700

== ENCOUNTER 2021-01-04 03:15 | Emergency (ER) | payer OTHER ==
[~2021-01-04] VITALS: Ht 170 cm; Wt 117.0 kg
[~2021-01-04 03:15] MED LIST changes: -OXYC-464 PO; +OXYC1TAB15 PO
[2021-01-04] MEDS ORDERED: ASPIRIN 81 MG CHEW (CHILDREN'S ASA) ONE (03:43)
[2021-01-04] MEDS ORDERED: IBUPROFEN 800 MG (MOTRIN) TAB PO ONE (03:45)
[2021-01-04] MEDS ORDERED: ACETAMINOPHEN 500 MG TAB (TYLENOL) PO ONE (03:45)
[2021-01-04] MEDS ORDERED: LACTATED RINGERS 1,000 ML IV ONE (03:45)
[2021-01-04] MEDS ORDERED: ASPIRIN 81 MG CHEW (CHILDREN'S ASA) PO ONE (03:45)
[2021-01-04 03:50] LABS: BASOPHILS % (AUTO) 1 % (0-10); EOSINOPHILS % (AUTO) 1 % (0-10); HEMATOCRIT 48 % (40-54); HEMOGLOBIN 16.6 g/dL (13.3-17.7); LYMPHOCYTES # (AUTO) 1.2 10^3/uL (1.0-4.0); LYMPHOCYTES % (AUTO) 35 % (12-44); MEAN CORPUSCULAR HEMOGLOBIN 31 pg (25-34); MEAN CORPUSCULAR HGB CONC 34 g/dL (32-36); MEAN CORPUSCULAR VOLUME 89 fL (80-99); MEAN PLATELET VOLUME 9.7 fL (9.0-12.2); MONOCYTES # (AUTO) 0.4 10^3/uL (0.0-1.0); MONOCYTES % (AUTO) 11 % (0-12); NEUTROPHILS # (AUTO) 1.8 10^3/uL (1.8-7.8); NEUTROPHILS % (AUTO) 52 % (42-75); PLATELET COUNT 175 10^3/uL (130-400); WHITE BLOOD COUNT 3.5 10^3/uL (4.3-11.0)
[2021-01-04 03:59] LABS: ALBUMIN 3.9 GM/DL (3.2-4.5)
[2021-01-04 04:00] LABS: INR 0.9 (0.8-1.4); POTASSIUM 3.9 MMOL/L (3.6-5.0); PROTHROMBIN TIME PATIENT 12.6 SEC (12.2-14.7)
[2021-01-04 04:01] LABS: CALCIUM 8.8 MG/DL (8.5-10.1)
[2021-01-04 04:02] LABS: TOTAL PROTEIN 6.9 GM/DL (6.4-8.2)
[2021-01-04 04:04] LABS: BILIRUBIN,TOTAL 0.3 MG/DL (0.1-1.0)
[2021-01-04 04:06] LABS: CREATININE SERUM 0.96 MG/DL (0.60-1.30)
[2021-01-04 04:08] LABS: MAGNESIUM 1.9 MG/DL (1.6-2.4)
[2021-01-04 04:17] LABS: CREATINE KINASE MB 0.8 NG/ML (<6.6)
--- NOTE | 2021-01-04 04:34 | ED Respiratory ---
General Chief Complaint: Respiratory Problems Stated Complaint: FEVER 104.2,CP,CLAMMY,COVID+ Nursing Triage Note: PT AMBULATES TO ROOM #9 W/CO FEVER, COUGH, HEADACHE, BODY ACHES, SOA, AND CHEST DISCOMFORT. PT REPORTS SX BEGAN ON 12/29/20 AND TESTED + FOR COVID-19 ON 01/01/21. REPORTS MEDIAL CHEST DISCOMFORT UPON INSPIRATION. 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 PT PALE AND DIAPHORETIC DURING TRIAGE. Source: patient History of Present Illness Date Seen by Provider: Jan 04, 2021 Time Seen by Provider: 03:23 Initial Comments PT ARRIVES VIA POV FROM HOME PT STATES HE BEGAN GETTING SICK ON Thursday12/29/20, AND TESTED + FOR COVID-19 ON Thursday01/01/21 AT [facility] IN [place]. HAS NOT ACTUALLY SEEN A PHYSICIAN OR CARPENTER PROTOTYPE FOR THIS PROBLEM. C/O COUGH C/O FEVER UP TO 104.2--TOOK TYLENOL JUST PRIOR TO ARRIVAL. PT IS NOW PROFUSELY DIAPHORETIC ON ARRIVAL--STATES HIS FEVER HAS BROKEN, TEMP IS LESS THAN 100 ON ARRIVAL HERE C/O BODY ACHES FOR THE LAST 2 DAYS HAS FELT SHORT OF BREATH, AND HAS CHEST PAIN ON DEEP BREATHING--RATES PAIN 3/10 WITH DEEP BREATHING. NO PAIN AT THIS TIME HAS HAD SOME NAUSEA, NO VOMITING. NO DIARRHEA. IS NOT NAUSEATED NOW HAS BEEN DRINKING LIQUIDS WELL AND VOIDING NORMALLY. + FATIGUE NO HEADACHE NO LOSS OF TASTE OR SMELL NO SORE THROAT PT HAS NOT HAD COVID-19 VACCINE AND 2 CHILDREN IN HOME ARE NOT ILL. WORKS HERE AT HOSPITAL IN SLEEP LAB. NO KNOWN SICK CONTACTS PT DENIES ANY CHRONIC MEDICAL ILLNESSES OR RESPIRATORY PROBLEMS PT IS NON-SMOKER PCP: DR. FRAGOSO Allergies and Home Medications Allergies Coded Allergies: No Known Drug Allergies (Unverified , 07/17/16) Home Medications Azithromycin 500 Mg Tablet, 500 MG PO DAILY Prescribed by: GISELA YIN on 01/04/21442 Benzonatate 100 Mg Capsule, 200 MG PO TID Prescribed by: GISELA YIN on 01/04/21442 Cefdinir 300 Mg Capsule, 300 MG PO BID Prescribed by: GISELA YIN on 01/04/21442 Dexamethasone 6 Mg Tablet, 6 MG PO DAILY Prescribed by: GISELA YIN on 01/04/21442 Ibuprofen 200 Mg Tablet, 800 MG PO Q8H PRN for PAIN-MILD, (Reported) TAKES 4 (200MG) TABLETS Ondansetron 4 Mg Tab.rapdis, 4 MG PO Q4H Prescribed by: GISELA YIN on 01/04/21442 Oxycodone HCl/Acetaminophen 1 Each Tablet, 1 TAB PO Q4H PRN for PAIN-MODERATE, (Reported) Oxycodone HCl/Acetaminophen 1 Each Tablet, 1-2 TAB PO Q4H PRN for PAIN-MILD TO MODERATE Prescribed by: JOLENE MCCRAY on 02/20/17 1011 Patient Home Medication List Home Medication List Reviewed: Yes Review of Systems Review of Systems Constitutional: see HPI, diaphoresis, fever, malaise, weakness EENTM: see HPI, nose congestion; No throat pain Respiratory: see HPI, cough, short of breath Cardiovascular: see HPI, chest pain Gastrointestinal: see HPI; No abdominal pain, No diarrhea; nausea; No vomiting Genitourinary: no symptoms reported; No decreased output Musculoskeletal: see HPI (BODY ACHES) Skin: no symptoms reported Psychiatric/Neurological: No Symptoms Reported Hematologic/Lymphatic: No Symptoms Reported Immunological/Allergic: no symptoms reported Past Vnxahkb-Nseuhf-Mkmfuh Hx Patient Social History Tobacco Use?: No Smokeless Tobacco Frequency: Never a User Use of E-Cig and/or Vaping Brennan: Never a User Substance use?: No Alcohol Use?: No Pt feels they are or have been: No Immunizations Up To Date Tetanus Booster (TDap): Unknown PED Vaccines UTD: No First/Initial COVID19 Vaccinat: NA Seasonal Allergies Seasonal Allergies: No Past Medical History Surgery/Hospitalization HX: COLON RESECTION X 2 WITH COLOSTOMY AND LATER TAKEDOWN/REVERSAL OF COLOSTOMY--STATES 5 SURGERIES RELATED TO DIVERTICULITIS HERNIA REPAIR CHOLECYSTECTOMY Surgeries: Yes (colostomy with reversal, hernia repair) Abdominal, Bowel Surgery, Gallbladder Respiratory: No (COVID-19 DX 01/01/2021) Currently Using CPAP: No Currently Using BIPAP: No Cardiac: No Neurological: No Reproductive Disorders: No Sexually Transmitted Disease: No HIV/AIDS: No Genitourinary: No Gastrointestinal: Yes (BOWEL RESECTION X2-REMOVAL SIG COLON-COLOSTOMY W/ REVERSAL;CHOLECYSTECTOMY;) Abdominal Hernia, Diverticulosis, Gall Bladder Disease Musculoskeletal: No Endocrine: No HEENT: No Loss of Vision: Denies Hearing Impairment: Denies Cancer: No Psychosocial: No Integumentary: No Blood Disorders: No Adverse Reaction/Blood Tranf: No (N/A) Family Medical History Patient reports no known family medical history. Physical Exam Vital Signs - First Documented 01/04/21 03:30 Temp 36.9 Pulse 73 Resp 20 B/P (MAP) 130/76 (94) Pulse Ox 94 O2 Delivery Room Air Capillary Refill : Less Than 3 Seconds Height: 5'6.00" Weight: 260lbs. 0.0oz. 117.197940ol; 40.00 BMI Method:Stated General Appearance: WD/WN, no apparent distress, obese, other (PROFUSELY DIAPHORETIC, LOOKS MILDLY ILL. NO DYSPNEA. NO COUGH) Neck: normal inspection Respiratory: normal breath sounds, no respiratory distress, no accessory muscle use Cardiovascular: regular rate, rhythm, no edema, no JVD, no murmur Gastrointestinal: non tender, soft Extremities: normal inspection, no pedal edema, no calf tenderness, normal capillary refill Neurologic/Psychiatric: eyeglass lens generator II-XII nml as tested, no motor/sensory deficits, alert, oriented x 3 Skin: normal color, diaphoresis (AND WARM) Focused Exam Lactate Level 01/04/21 03:36: Lactic Acid Level 1.33 Lactic Acid Level Laboratory Tests Test 01/04/21 03:36 Lactic Acid Level 1.33 MMOL/L (0.50-2.00) Progress/Results/Core Measures Suspected Sepsis SIRS Temperature: Pulse: 73 Respiratory Rate: 20 Laboratory Tests 01/04/21 03:36: White Blood Count 3.5L Blood Pressure 130 /76 Mean: 94 01/04/21 03:36: Lactic Acid Level 1.33 Laboratory Tests 01/04/21 03:36: Creatinine 0.96, INR Comment 0.9, Platelet Count 175, Total Bilirubin 0.3 Results/Orders Lab Results Laboratory Tests Test 01/04/21 03:36 Range/Units White Blood Count 3.5 L 4.3-11.0 10^3/uL Red Blood Count 5.45 4.30-5.52 10^6/uL Hemoglobin 16.6 13.3-17.7 g/dL Hematocrit 48 40-54 % Mean Corpuscular Volume 89 80-99 fL Mean Corpuscular Hemoglobin 31 25-34 pg Mean Corpuscular Hemoglobin Concent 34 32-36 g/dL Red Cell Distribution Width 12.0 10.0-14.5 % Platelet Count 175 130-400 10^3/uL Mean Platelet Volume 9.7 9.0-12.2 fL Immature Granulocyte % (Auto) 1 % Neutrophils (%) (Auto) 52 42-75 % Lymphocytes (%) (Auto) 35 12-44 % Monocytes (%) (Auto) 11 0-12 % Eosinophils (%) (Auto) 1 0-10 % Basophils (%) (Auto) 1 0-10 % Neutrophils # (Auto) 1.8 1.8-7.8 10^3/uL Lymphocytes # (Auto) 1.2 1.0-4.0 10^3/uL Monocytes # (Auto) 0.4 0.0-1.0 10^3/uL Eosinophils # (Auto) 0.0 0.0-0.3 10^3/uL Basophils # (Auto) 0.0 0.0-0.1 10^3/uL Immature Granulocyte # (Auto) 0.0 0.0-0.1 10^3/uL Prothrombin Time 12.6 12.2-14.7 SEC INR Comment 0.9 0.8-1.4 Activated Partial Thromboplast Time 31 24-35 SEC D-Dimer 0.87 H 0.00-0.49 UG/ML Sodium Level 140 135-145 MMOL/L Potassium Level 3.9 3.6-5.0 MMOL/L Chloride Level 107 98-107 MMOL/L Carbon Dioxide Level 22 21-32 MMOL/L Anion Gap 11 5-14 MMOL/L Blood Urea Nitrogen 13 7-18 MG/DL Creatinine 0.96 0.60-1.30 MG/DL Estimat Glomerular Filtration Rate 88 BUN/Creatinine Ratio 14 Glucose Level 138 H 70-105 MG/DL Lactic Acid Level 1.33 0.50-2.00 MMOL/L Calcium Level 8.8 8.5-10.1 MG/DL Corrected Calcium 8.9 8.5-10.1 MG/DL Magnesium Level 1.9 1.6-2.4 MG/DL Total Bilirubin 0.3 0.1-1.0 MG/DL Aspartate Amino Transf (AST/SGOT) 41 H 5-34 U/L Alanine Aminotransferase (ALT/SGPT) 61 H 0-55 U/L Alkaline Phosphatase 72 40-136 U/L Total Creatine Kinase 282 H 30-200 U/L Creatine Kinase MB 0.8 <6.6 NG/ML Myoglobin 88.9 10.0-92.0 NG/ML Troponin I < 0.028 <0.028 NG/ML B-Type Natriuretic Peptide < 10.0 <100.0 PG/ML Total Protein 6.9 6.4-8.2 GM/DL Albumin 3.9 3.2-4.5 GM/DL Amylase Level 65 25-125 U/L Lipase 34 8-78 U/L Procalcitonin 0.02 <0.10 NG/ML My Orders Orders - GISELA YIN DO Ed Iv/Invasive Line Start (01/04/21 03:31) Ekg Tracing (01/04/21 03:31) O2 (01/04/21:31) Monitor-Rhythm Ecg Trace Only (01/04/21:31) Cbc With Automated Diff (01/04/21:31) Magnesium (01/04/21:31) Chest 1 View, Ap/Pa Only (01/04/21 03:31) Ekg Tracing (01/04/21:31) Comprehensive Metabolic Panel (01/04/21:31) Myoglobin Serum (01/04/21:31) Protime With Inr (01/04/21:31) Partial Thromboplastin Time (01/04/21 03:31) O2 (01/04/21 03:31) Ed Iv/Invasive Line Start (01/04/21:31) Creatine Kinase (01/04/21 03:31) Creatine Kinase Mb (01/04/21:31) Lipase (01/04/21 03:31) Amylase (01/04/21 03:31) BNP (01/04/21 03:31) Fibrin Degradation Products (01/04/21:31) Troponin I (01/04/21 03:31) Aspirin Chewable Tablet (Baby Aspirin Ch (01/04/21 03:45) Lactic Acid Analyzer (01/04/21 03:31) Procalcitonin (Pct) (01/04/21 03:31) Acetaminophen Tablet (Tylenol Tablet) (01/04/21 03:45) Ibuprofen Tablet (Motrin Tablet) (01/04/21 03:45) Ed Iv/Invasive Line Start (01/04/21 03:37) Lactated Ringers (Lr 1000 Ml Iv Solution (01/04/21 03:45) Dexamethasone Injection (Decadron Inje (01/04/21 03:45) Aspirin Chewable Tablet (Baby Aspirin Ch (01/04/21 03:43) Azithromycin Tablet (Zithromax Tablet) (01/04/21 04:45) Medications Given in ED Current Medications Medications Dose Ordered Sig/Leanna Route Start Time Stop Time Status Last Admin Dose Admin Aspirin 324 mg ONCE ONCE PO 01/04/21 03:45 01/04/21 03:46 DC 01/04/21 03:44 324 MG Ibuprofen 800 mg ONCE ONCE PO 01/04/21 03:45 01/04/21 03:46 DC 01/04/21 03:45 800 MG Lactated Ringer's 1,000 ml @ 0 mls/hr Q0M ONCE IV 01/04/21 03:45 01/04/21 03:46 DC 01/04/21 03:44 0 MLS/HR Vital Signs/I&O 01/04/21 03:30 Temp 36.9 Pulse 73 Resp 20 B/P (MAP) 130/76 (94) Pulse Ox 94 O2 Delivery Room Air Capillary Refill : Less Than 3 Seconds Blood Pressure Mean: 94 Progress Note : Progress Note PLACED IN ISOLATION ROOM PPE WORN AT ALL TIMES GIVEN IV FLUIDS, MOTRIN, ASPIRIN, DECADRON FOR SYMPTOMS GIVEN ROCEPHIN AND ZITHROMAS TEMP DOWN NO DYSPNEA NO COUGH NO HYPOXIA--O2 SATS 97-98% ON ROOM AIR NO NAUSEA NO COMPLAINTS OF CHEST PAIN DURING ER STAY NO DETERIORATION IN PT'S CONDITION DURING ER STAY DISCUSSED REGEN-COV TREATMENT WITH PATIENT, AND PT WOULD LIKE TO PROCEED. ORDER SHEET FILLED OUT AND SENT TO PHARMACY ECG Initial ECG Impression Date: Jan 04, 2021 Initial ECG Impression Time: 03:29 Initial ECG Rate: 72 Initial ECG Rhythm: Normal Sinus Initial ECG Impression: Nonspecific Changes Diagnostic Imaging Comments CXR--MILD BIBASILAR INFILTRATES, PENDING RADIOLOGIST REVIEW Reviewed: Reviewed by Me Departure Impression Primary Impression: Pneumonia due to COVID-19 virus Disposition: 01 HOME, SELF-CARE Condition: Stable Departure-Patient Inst. Decision time for Depature: 04:35 Referrals: STEFFI FRAGOSO MD (PCP/Family) Primary Care Physician Patient Instructions: Preventing the Spread of an Infectious Disease, COVID-19 (DC), Pneumonia in Adults, REGEN-COV (casirivimab and imdevimab) FDA Fact Sheet Add. Discharge Instructions: QUARANTINE YOURSELF AND ALL HOUSEHOLD CONTACTS FOR 2 WEEKS LOTS OF CLEAR LIQUIDS--WATER, BROTH, JELLO, GATORADE TYLENOL 1 GRAM/ MOTRIN 800 MG 4 TIMES A DAY FOR PAIN OR FEVER OVER THE COUNTER MEDICATIONS SUCH MUCINEX DM FOR COUGH TAKE 81 MG ASPIRIN DAILY X 30 DAYS CALL TODAY TO SCHEDULE REGEN-COV INFUSION FOLLOW UP WITH DR. FRAGOSO ON THURSDAY--CALL TODAY FOR APPOINTMENT. RETURN TO ER IF SYMPTOMS WORSEN All discharge instructions reviewed with patient and/or family. Voiced understanding. Scripts Benzonatate (TESSALON PERLES) 100 Mg Capsule 200 MG PO TID, #30 CAP Prov: GISELA YIN DO 01/04/21 Cefdinir (Cefdinir) 300 Mg Capsule 300 MG PO BID, #20 CAP Prov: GISELA YIN DO 01/04/21 Ondansetron (Ondansetron Odt) 4 Mg Tab.rapdis 4 MG PO Q4H for Nausea/Vomiting, #10 TAB Prov: GISELA YIN DO 01/04/21 Azithromycin (Zithromax) 500 Mg Tablet 500 MG PO DAILY for 5 Days, #5 TAB Prov: GISELA YIN DO 01/04/21 Dexamethasone (Decadron) 6 Mg Tablet 6 MG PO DAILY, #10 TAB Prov: GISELA YIN DO 01/04/21 GISELA YIN DO Jan 04, 2021 04:34
[2021-01-04] MEDS ORDERED: DEXA6TAB6 PO (04:43)
[2021-01-04] MEDS ORDERED: AZIT500T PO (04:43)
[2021-01-04] MEDS ORDERED: ONDA4TAB11 PO (04:43)
[2021-01-04] MEDS ORDERED: BENZ100C18 PO (04:43)
[2021-01-04] MEDS ORDERED: CEFD300C3 PO (04:43)
[2021-01-04] MEDS ORDERED: AZITHROMYCIN 250 MG TAB (ZITHROMAX) PO ONE (04:45)
[2021-01-04 05:20] VITALS: BP 114/73
--- NOTE | 2021-01-04 05:48 | Diagnostic Imaging Report ---
INDICATION: Chest pain. COMPARISON: 02/18/2017 FINDINGS: Single frontal radiographic view of the chest was obtained and demonstrates interval development of patchy and confluent alveolar airspace opacities in both lung bases. There is no large effusion or pneumothorax. Cardiac silhouette and pulmonary vasculature are within normal limits. Osseous structures show no gross acute abnormalities. IMPRESSION: 1. Bibasilar airspace disease concerning for pneumonia. Follow-up to resolution is recommended. Dictated by: Dictated on workstation # [id number]
== END 2021-01-04 05:45 | disposition home or self-care (01) ==
LOC: EDUNIT# 03:15 → ER 03:19
DX: U07.1 COVID-19 (principal); J12.82 Pneumonia due to coronavirus disease 2019; E66.9 Obesity, unspecified; Z68.42 Body mass index [BMI] 45.0-49.9, adult
CPT/HCPCS: 36415; 71045; 80053; 82150; 82550; 82553; 83605; 83690; 83735; 83874; 83880; 84145; 84484; 85025; 85379; 85610; 85730; 93005; 93041

== ENCOUNTER 2021-02-14 15:40 | Day surgery (SDC) | payer OTHER ==
[2021-02-14] VITALS (7 sets, daily range): BP systolic 84–128; BP diastolic 40–71
[~2021-02-14] VITALS: Ht 167.7 cm; Wt 118.8 kg
[~2021-02-14 15:40] MED LIST changes: +AZIT500T PO; +BENZ100C18 PO; +CEFD300C3 PO; +DEXA6TAB6 PO; +ONDA4TAB11 PO
[2021-02-14] MEDS ORDERED: ceFAZolin INJECTION 1,000 MG VIAL IV ONE (15:45)
[2021-02-14] MEDS ORDERED: LIDOCAINE 1% INJ 20 ML 20 ML VIAL INJ ONE (15:45)
[2021-02-14] MEDS ORDERED: morphine INJ 10 MG/ML 1ML (SYR OR VIAL) IVP STA (15:45)
[2021-02-14] MEDS ORDERED: TETANUS,DIPTH,PERTUSS P/F (BOOSTRIX) 0.5 ML VIAL IM ONE ×2 (15:45→15:46)
[2021-02-14] MEDS ORDERED: ceFAZolin INJECTION 1,000 MG ONE (15:46)
[2021-02-14] MEDS ORDERED: WATER (STERILE) FOR INJECTION 10 ML ONE (15:46)
[2021-02-14] MEDS ORDERED: morphine INJ 10 MG/ML 1ML (SYR OR VIAL) ONE (15:46)
[2021-02-14] MEDS ORDERED: LIDOCAINE 1% INJ 20 ML 20 ML VIAL ONE (15:46)
--- NOTE | 2021-02-14 15:56 | ED Lower Extremity ---
General Chief Complaint: Foreign Body Stated Complaint: NAIL IN L KNEE Nursing Triage Note: PT TO RM 6 BY WHEELCHAIR WITH COMPLAINT OF NAIL IN LEFT KNEE. PT STATES HE WAS USING A NAIL GUN AND NAILED HIS KNEE. STATES NAILS ARE APPROX 3 INCH LONG. Source: patient Exam Limitations: no limitations History of Present Illness Date Seen by Provider: Feb 14, 2021 Time Seen by Provider: 15:54 Initial Comments To ER with reports of a nail in the medial distal left thigh. He was working on some decking with a nail gun. He was using 3-1/2 inch long nails. This has punctured through the skin and taken his jeans shorts with it. Tetanus is not up-to-date. Onset: just prior to arrival Severity: moderate Pain/Injury Location: left knee Method of Injury: direct blow Modifying Factors: Worse With Movement Allergies and Home Medications Allergies Coded Allergies: No Known Drug Allergies (Unverified , 07/17/16) Patient Home Medication List Home Medication List Reviewed: Yes Azithromycin (Zithromax) 500 Mg Tablet, 500 MG PO DAILY Prescribed by: GISELA YIN on 01/04/21442 Benzonatate (Tessalon Perles) 100 Mg Capsule, 200 MG PO TID Prescribed by: GISELA YIN on 01/04/21442 Cefdinir (Cefdinir) 300 Mg Capsule, 300 MG PO BID Prescribed by: GISELA YIN on 01/04/21442 Dexamethasone (Decadron) 6 Mg Tablet, 6 MG PO DAILY Prescribed by: GISELA YIN on 01/04/21442 Ibuprofen (Advil) 200 Mg Tablet, 800 MG PO Q8H PRN for PAIN-MILD, (Reported) Entered as Reported by: PRETTY SPRINGER on 02/18/17 0946 Ondansetron (Ondansetron Odt) 4 Mg Tab.rapdis, 4 MG PO Q4H Prescribed by: GISELA YIN on 01/04/21442 Oxycodone HCl/Acetaminophen (Oxycodon-Acetaminophen 7.5-325) 1 Each Tablet, 1 TAB PO Q4H PRN for PAIN-MODERATE, (Reported) Entered as Reported by: PRETTY SPRINGER on 02/18/17 0946 Oxycodone HCl/Acetaminophen (Percocet 5-325 mg Tablet) 1 Each Tablet, 1-2 TAB PO Q4H PRN for PAIN-MILD TO MODERATE Prescribed by: JOLENE MCCRAY on 02/20/17 1011 Review of Systems Constitutional: see HPI EENTM: see HPI Respiratory: no symptoms reported Cardiovascular: no symptoms reported Genitourinary: no symptoms reported Musculoskeletal: no symptoms reported Skin: no symptoms reported Psychiatric/Neurological: No Symptoms Reported Past Goqwlyi-Xmkzmf-Mswwoo Hx Patient Social History Tobacco Use?: No Use of E-Cig and/or Vaping dev: No Substance use?: No Alcohol Use?: No Pt feels they are or have been: No Immunizations Up To Date Tetanus Booster (TDap): Unknown PED Vaccines UTD: No First/Initial COVID19 Vaccinat: NA Second COVID19 Vaccination Jose: NA Seasonal Allergies Seasonal Allergies: No Past Medical History Surgery/Hospitalization HX: COLON RESECTION X 2 WITH COLOSTOMY AND LATER TAKEDOWN/REVERSAL OF COLOSTOMY--STATES 5 SURGERIES RELATED TO DIVERTICULITIS HERNIA REPAIR CHOLECYSTECTOMY Surgeries: Yes (colostomy with reversal, hernia repair) Abdominal, Bowel Surgery, Gallbladder Respiratory: No (COVID-19 DX 01/01/2021) Currently Using CPAP: No Currently Using BIPAP: No Cardiac: No Neurological: No Reproductive Disorders: No Sexually Transmitted Disease: No HIV/AIDS: No Genitourinary: No Gastrointestinal: Yes (BOWEL RESECTION X2-REMOVAL SIG COLON-COLOSTOMY W/ REVERSAL;CHOLECYSTECTOMY;) Abdominal Hernia, Diverticulosis, Gall Bladder Disease Musculoskeletal: No Endocrine: No HEENT: No Loss of Vision: Denies Hearing Impairment: Denies Cancer: No Psychosocial: No Integumentary: No Blood Disorders: No Adverse Reaction/Blood Tranf: No (N/A) Family Medical History Patient reports no known family medical history. Physical Exam Vital Signs Vital Signs - First Documented 02/14/21 15:40 Pulse 89 Resp 16 B/P (MAP) 135/80 (98) Pulse Ox 97 O2 Delivery Room Air Capillary Refill : Less Than 3 Seconds Height, Weight, BMI Height: 5'6.00" Weight: 260lbs. 0.0oz. 117.279028mo; 42.00 BMI Method:Stated General Appearance: WD/WN, moderate distress Neck: non-tender, full range of motion Respiratory: no respiratory distress, no accessory muscle use Hips: bilateral hip non-tender, bilateral hip normal inspection, bilateral hip normal range of motion Legs: bilateral leg non-tender, bilateral leg normal range of motion, bilateral leg no evidence of injury Knees: left knee other (For the medial femoral condyle area of the distal femur is a nail. This appears to be rather deep. We will get some x-rays though I suspect it has entered the distal femur.) Ankles: bilateral ankle non-tender, bilateral ankle normal inspection, bilateral ankle normal range of motion Feet: bilateral foot non-tender, bilateral foot normal inspection, bilateral foot normal range of motion Neurologic/Psychiatric: alert, normal mood/affect, oriented x 3 Skin: normal color, warm/dry Progress/Results/Core Measures Results/Orders My Orders Orders - JOSÉ MIGUEL CARROLL APRN Ed Iv/Invasive Line Start (02/14/21 15:45) Knee, Left, 3 Views (02/14/21 15:45) Morphine Injection (Morphine Injection (02/14/21 15:45) Dipht,Pertuss(Acell),Tet Adult (Boostrix (02/14/21 15:45) Cefazolin Injection (Ancef Injection) (02/14/21 15:45) Lidocaine 1% Inj 20 Ml (Xylocaine 1% Inj (02/14/21 15:45) Cefazolin Injection (Ancef Injection) (02/14/21 15:46) Water (Sterile) For Injection (Sterile W (02/14/21 15:46) Lidocaine 1% Inj 20 Ml (Xylocaine 1% Inj (02/14/21 15:46) Dipht,Pertuss(Acell),Tet Adult (Boostrix (02/14/21 15:46) Ct Angio Ext Lower Left W (02/14/21 15:58) Iohexol Injection (Omnipaque 350 Mg/Ml 1 (02/14/21 16:15) Received Contrast (Hold Metformin- Contr (02/14/21 16:15) Ns (Ivpb) (Sodium Chloride 0.9% Ivpb Bag (02/14/21 16:15) Medications Given in ED Current Medications Medications Dose Ordered Sig/Leanna Route Start Time Stop Time Status Last Admin Dose Admin Cefazolin Sodium 1,000 mg ONCE ONCE IV 02/14/21 15:45 02/14/21 15:47 DC 02/14/21 15:49 1,000 MG Diphtheria/ Tetanus/Acell Pertussis 0.5 ml ONCE ONCE IM 02/14/21 15:45 02/14/21 15:47 DC 02/14/21 15:50 0.5 ML Iohexol 100 ml ONCE ONCE IV 02/14/21 16:15 02/14/21 16:16 DC 02/14/21 16:23 100 ML Lidocaine HCl 20 ml ONCE ONCE INJ 02/14/21 15:45 02/14/21 15:47 DC 02/14/21 15:49 20 ML Sodium Chloride 100 ml ONCE ONCE IV 02/14/21 16:15 02/14/21 16:16 DC 02/14/21 16:23 80 ML Vital Signs/I&O 02/14/21 15:40 Pulse 89 Resp 16 B/P (MAP) 135/80 (98) Pulse Ox 97 O2 Delivery Room Air Blood Pressure Mean: 98 Departure Communication (Admissions) 1636-Spoke with Dr Bearden. Will take to OR for joint washout and removal foreign body. Impression Primary Impression: intraosseous foreign body Disposition: 01 HOME, SELF-CARE Condition: Stable Departure-Patient Inst. Referrals: STEFFI FRAGOSO MD (PCP/Family) Primary Care Physician JOSÉ MIGUEL CARROLL APRN Feb 14, 2021 15:56
--- NOTE | 2021-02-14 16:14 | Diagnostic Imaging Report ---
EXAMINATION: Left knee radiographs, 3 views. COMPARISON: None. HISTORY: 40-year-old male, nail gun injury. Left knee pain. FINDINGS: There is a male extending into the medial femoral condyle with tip near the posterior weightbearing portion on the lateral view. There is no large knee joint effusion. There is degenerative type enthesopathy at the distal quadriceps tendon insertion. There is no acute or aggressive appearing bone destruction. There is no periosteal reaction. There is no identified fracture line separate from the foreign body. IMPRESSION: 1. There is a nail extending into the medial femoral condyle with tip near the articulating surface of the posterior weightbearing portion of the medial femoral condyle. 2. No separately identified fracture. 3. No knee joint effusion. Dictated by: Dictated on workstation # [id number]
[2021-02-14] MEDS ORDERED: IOHEXOL 350 MG/ML 100 ML (OMNIPAQUE 350) VIAL IV ONE (16:15)
[2021-02-14] MEDS ORDERED: HOLD METFORMIN - RECEIVED CONTRAST 20 ML VIAL IV SCH (16:15)
[2021-02-14] MEDS ORDERED: NS 100 ML (IVPB) BAG IV ONE (16:15)
[2021-02-14] MEDS ORDERED: BUPIVACAINE 0.5% 30 ML (SENSORCAINE) VIAL ONE (16:42)
--- NOTE | 2021-02-14 16:45 | Diagnostic Imaging Report ---
HISTORY: Nail in the left knee. TECHNIQUE: Axial CT of the left knee was performed following intravenous administration of contrast timed for evaluation of the arterial structures. 3-D reconstructions were performed, and the images were reviewed. All CT scans use one or more of the following dose optimizing techniques: Automated exposure control, MA and/or KvP adjustment based on patient size and exam type or iterative reconstruction. COMPARISON: Radiographs from 02/14/2021. FINDINGS: There is a metal nail passing through the left medial femoral condyle, measuring at least 7 cm in length. This enters through the vastus medialis which demonstrates marked swelling, passes through the lateral medial femoral condyle and through the posterior cortex of the medial femoral condyle into the posterior soft tissues. No disruption of the popliteal artery is seen. There is no contrast extravasation. There is a small divot measuring about 5 mm in depth at the medial tibial plateau which may be due to the nail if the knee was in flexion at the time of injury. There is surrounding deep soft tissue edema. There is a small lipohemarthrosis of the left knee. No other fracture is seen. Alignment is normal. No muscular atrophy is identified. There are small foci of air in the deep soft tissues. IMPRESSION: 1. Nail in the left medial femoral condyle. There is intra-articular involvement with a small lipohemarthrosis. A small divot in the medial tibial plateau is likely from the nail at the time of injury. 2. No acute arterial injury or contrast extravasation is seen. Dictated by: Dictated on workstation # [id number]
[2021-02-14] MEDS ORDERED: HYDROmorphone 2 MG/ML VIAL (DILAUDID) ONE (16:54)
[2021-02-14] MEDS ORDERED: HYDROmorphone 2 MG/ML VIAL (DILAUDID) IV ONE ×2 (17:00→18:30)
[2021-02-14 17:05] LABS: BASOPHILS % (AUTO) 1 % (0-10); EOSINOPHILS % (AUTO) 1 % (0-10); HEMATOCRIT 44 % (40-54); LYMPHOCYTES # (AUTO) 1.5 10^3/uL (1.0-4.0); LYMPHOCYTES % (AUTO) 25 % (12-44); MEAN CORPUSCULAR HEMOGLOBIN 31 pg (25-34); MEAN CORPUSCULAR HGB CONC 34 g/dL (32-36); MEAN CORPUSCULAR VOLUME 91 fL (80-99); MONOCYTES # (AUTO) 0.7 10^3/uL (0.0-1.0); MONOCYTES % (AUTO) 11 % (0-12); NEUTROPHILS # (AUTO) 3.7 10^3/uL (1.8-7.8); NEUTROPHILS % (AUTO) 62 % (42-75); PLATELET COUNT 223 10^3/uL (130-400)
[2021-02-14] MEDS ORDERED: LACTATED RINGERS 1,000 ML IV ONE (17:05)
--- NOTE | 2021-02-14 17:07 | Progress Note-Pre Operative ---
Pre-Operative Progress Note H&P Reviewed The H&P was reviewed, patient examined and no changes noted. Date Seen by Provider: Feb 14, 2021 Time Seen by Provider: 17:06 Date H&P Reviewed: Feb 14, 2021 Time H&P Reviewed: 17:07 Pre-Operative Diagnosis: intra articular foreign body left knee WARD BAIRD MD Feb 14, 2021 17:07
--- NOTE | 2021-02-14 17:08 | Progress Note-Post Operative ---
Post-Operative Progess Note Surgeon (s)/[employer] (s) Surgeon WARD BAIRD MD [employer]: Syd Bianchi Pre-Operative Diagnosis intra articular foreign body left knee Post-Operative Diagnosis intra articular foreign body left knee Procedure & Operative Findings Date of Procedure 02/14/21 Procedure Performed/Findings foreign body removal and arthroscopic irrigation and debridement of the left knee Anesthesia Type spinal Estimated Blood Loss Estimated blood loss (mL): minimal Specimens/Packing Specimens Removed nail Packing: none WARD BAIRD MD Feb 14, 2021 17:08
[2021-02-14 17:10] LABS: POTASSIUM 4.2 MMOL/L (3.6-5.0)
[2021-02-14] MEDS ORDERED: OXYC1TAB87 PO (17:10)
[2021-02-14 17:11] LABS: CALCIUM 9.3 MG/DL (8.5-10.1)
[2021-02-14] MEDS ORDERED: NALOXONE 0.4 MG/ML 1 ML (NARCAN) VIAL IV PRN (17:30)
[2021-02-14] MEDS ORDERED: ONDANSETRON 4 MG/2 ML (SDV) Z0FRAN IVP PRN ×2 (17:30→18:30)
[2021-02-14 17:31] LABS: PROTHROMBIN TIME PATIENT 13.3 SEC (12.2-14.7)
--- NOTE | 2021-02-14 17:41 | HISTORY AND PHYSICAL ---
DATE OF SERVICE: ADMISSION HISTORY AND PHYSICAL REASON FOR ADMISSION: Intraarticular foreign body, left knee. HISTORY OF PRESENT ILLNESS: The patient is a 40-year-old gentleman, who misfired a nail gun into his left thigh. This led to presentation to the emergency room, where he was found to have radiographically nail through his medial femoral condyle and into the posterior joint surface. CT angiogram was obtained, which revealed no vascular compromise. The nail did go through melba clay. The shorts christine is still at the head of the nail, which is exposed. He denies any paresthesias distally. ALLERGIES: No known drug allergies. PAST MEDICAL HISTORY: Significant for COVID pneumonia. PAST SURGICAL HISTORY: Colon resection and colostomy secondary to diverticulitis with colostomy takedown and reversal, herniorrhaphy, and cholecystectomy. MEDICATIONS: Dexamethasone. SOCIAL HISTORY: Noncontributory. FAMILY HISTORY: Noncontributory. PHYSICAL EXAMINATION: GENERAL: The patient is well-developed, well-nourished, in mild distress. HEENT: Normocephalic, atraumatic. Pupils are equal, round, and reactive to light. Oropharynx is clear. NECK: Supple, no lymphadenopathy. LUNGS: Clear to auscultation bilaterally. HEART: Regular rate and rhythm. ABDOMEN: Soft, nontender, and nondistended. EXTREMITIES: The left knee demonstrates a nail head in the vastus medialis region with surrounding christine. Distally, he has symmetric pulses. Intact dorsiflexion and plantarflexion of the toes and intact sensation to light touch throughout. IMPRESSION: Foreign body, left knee. PLAN: Foreign body removal, left thigh and knee with arthroscopic irrigation and debridement of the left knee. Discussed risks, benefits, options, ramifications and recovery with the patient and his . Specifically, we discussed the risk of infection. He did receive Ancef. They understand and wished to proceed. Job ID: [id number] DocumentID: [id number] Dictated Date: 02/14/2021 17:06:44 Housekeeper Cleaning Cooking Date: 02/14/2021 17:39:57 Dictated By: WARD BAIRD MD
[2021-02-14] MEDS: morphine PF (DURAMORPH) 10 MG/10 ML AMP ONE ×2 (18:01→18:18)
[2021-02-14] MEDS ORDERED: LACTATED RINGERS 1,000 ML IV PRN (18:15)
--- NOTE | 2021-02-14 18:24 | Progress Note-Post Operative ---
Post-Operative Progess Note Surgeon (s)/Rocket Engine Component Mechanic (s) Surgeon WARD BAIRD MD Rocket Engine Component Mechanic: Syd Bianchi Pre-Operative Diagnosis intra articular foreign body left knee Post-Operative Diagnosis intra articular foreign body left knee Procedure & Operative Findings Date of Procedure 02/14/21 Procedure Performed/Findings foreign body removal and arthroscopic irrigation and debridement of the left knee Anesthesia Type spinal Estimated Blood Loss Estimated blood loss (mL): minimal Specimens/Packing Specimens Removed nail Packing: none WARD BAIRD MD Feb 14, 2021 18:24
[2021-02-14] MEDS: HYDROcodone/APAP 7.5 MG/325 MG (LORTAB, LORCET PLUS) TABLET PO PRN (23:38)
[2021-02-14] MEDS: ceFAZolin INJECTION 1,000 MG in WATER (STERILE) FOR INJECTION 10 ML IV SCH (23:40)
[2021-02-15] MEDS: morphine INJ 4 MG/ML 1 ML (VIAL/SYRINGE) IVP PRN ×4 (00:22→15:44)
--- NOTE | 2021-02-15 00:22 | OPERATIVE REPORT ---
DATE OF SERVICE: 02/14/2021 PREOPERATIVE DIAGNOSES: Intra-articular foreign body, left knee. POSTOPERATIVE DIAGNOSIS: Intra-articular foreign body, left knee. PROCEDURES: 1. Arthroscopic irrigation and debridement of the left knee. 2. Foreign body removal, left knee. SURGEON: Timothy Baird MD GUNNER'S MATE: Syd Bianchi, who assisted throughout the procedure and closed the incisions. ANESTHESIA: Spinal by Carlos Eduardo Bach CRNA. TOURNIQUET TIME: Topical. ESTIMATED BLOOD LOSS: Minimal. DRAINS: None. COMPLICATIONS: None. POSTOPERATIVE PLAN: Three doses of IV antibiotics, followed by oral antibiotics. The patient was transferred to the recovery room awake and stable condition. STATEMENT OF MEDICAL NECESSITY: The patient is a 40-year-old gentleman who sustained an injury at work in which a nail gun discharged into his distal left thigh. Radiographs and CT scan revealed intraarticular extension of the foreign body without vascular compromise because this did extend intraarticularly. It was recommended the patient undergo irrigation and debridement. DESCRIPTION OF PROCEDURE: After risks and benefits of procedure were discussed and questions were answered, informed consent was signed and placed on chart, the operative site was confirmed in the preoperative holding area initialed by the surgeon. The patient was then transferred to the operating room and after adequate levels of regional anesthetic were obtained, a timeout was called, confirming the operative site. The nail head was visible and was grasped with vice social science professor. The nail was then removed. The varnish on the nail was still present. The christine from his jeans was removed as well with the nail. The left lower extremity was then prepped and draped in the usual sterile fashion and the knee joint was injected with 60 mL of fluid. A superior medial inflow cannula was placed separate from the penetration site and an inferolateral portal was placed for the arthroscope under direct visualization, inferior medial portal was created. Diagnostic arthroscopy was carried out. There did appear to be chondral disruption of the posterior tibial plateau consistent with penetration of the nail. No loose fragments were noted. No contamination was noted. The scope was directed into the posterior compartment and irrigation was made throughout the knee joint. The chondral surface was debrided. The entirety of the knee joint was carefully visualized with no loose fragments noted and no contamination noted. A total of 9 liters of irrigation was utilized. The portal sites were then closed with 4-0 nylon in simple interrupted fashion. A soft dressing was applied, and the patient was transferred to the recovery room awake and in stable condition. Job ID: [id number] DocumentID: [id number] Dictated Date: 02/14/2021 18:23:47 Transition Teacher Date: 02/15/2021 00:21:47 Dictated By: TIMOTHY BAIRD MD
[2021-02-15] MEDS: HYDROcodone/APAP 7.5 MG/325 MG (LORTAB, LORCET PLUS) TABLET PO PRN ×5 (01:24→15:33)
[2021-02-15 03:15] VITALS: BP 131/76
--- NOTE | 2021-02-15 07:02 | Progress Note ---
Standard Progress Note Progress Notes/Assess & Plan Date Seen by a Provider: Feb 15, 2021 Time Seen by a Provider: 07:00 Progress/Assessment & Plan no complaints Vital Signs Date Time Temp Pulse Resp B/P (MAP) Pulse Ox O2 Delivery O2 Flow Rate FiO2 02/15/21 03:15 36.8 70 18 131/76 (94) 97 Room Air 02/15/21 00:13 Room Air 02/14/21 23:30 36.3 72 20 115/71 (86) 99 Room Air 02/14/21 20:19 Room Air 02/14/21 19:26 35.8 68 20 128/69 (88) 97 Room Air 02/14/21 19:05 Room Air 02/14/21 19:00 36.2 16 91/48 (62) 99 Room Air 02/14/21 18:51 16 100/62 (75) 98 Room Air 02/14/21 18:45 Room Air 02/14/21 18:40 16 100/40 (60) 100 Room Air 02/14/21 18:30 16 84/47 (59) 98 Room Air 02/14/21 18:20 Room Air 02/14/21 18:20 36.6 16 91/60 (70) 100 Room Air 02/14/21 17:15 86 132/63 98 Room Air 02/14/21 15:40 89 16 135/80 (98) 97 Room Air I & O 02/15/21 07:00 Intake Total 2250 ml Output Total 650 ml Balance 1600 ml Laboratory Tests Test 02/14/21 16:52 Range/Units White Blood Count 6.0 4.3-11.0 10^3/uL Red Blood Count 4.87 4.30-5.52 10^6/uL Hemoglobin 15.0 13.3-17.7 g/dL Hematocrit 44 40-54 % Mean Corpuscular Volume 91 80-99 fL Mean Corpuscular Hemoglobin 31 25-34 pg Mean Corpuscular Hemoglobin Concent 34 32-36 g/dL Red Cell Distribution Width 12.4 10.0-14.5 % Platelet Count 223 130-400 10^3/uL Mean Platelet Volume 10.0 9.0-12.2 fL Immature Granulocyte % (Auto) 1 % Neutrophils (%) (Auto) 62 42-75 % Lymphocytes (%) (Auto) 25 12-44 % Monocytes (%) (Auto) 11 0-12 % Eosinophils (%) (Auto) 1 0-10 % Basophils (%) (Auto) 1 0-10 % Neutrophils # (Auto) 3.7 1.8-7.8 10^3/uL Lymphocytes # (Auto) 1.5 1.0-4.0 10^3/uL Monocytes # (Auto) 0.7 0.0-1.0 10^3/uL Eosinophils # (Auto) 0.0 0.0-0.3 10^3/uL Basophils # (Auto) 0.0 0.0-0.1 10^3/uL Immature Granulocyte # (Auto) 0.0 0.0-0.1 10^3/uL Prothrombin Time 13.3 12.2-14.7 SEC INR Comment 1.0 0.8-1.4 Sodium Level 142 135-145 MMOL/L Potassium Level 4.2 3.6-5.0 MMOL/L Chloride Level 110 H 98-107 MMOL/L Carbon Dioxide Level 22 21-32 MMOL/L Anion Gap 10 5-14 MMOL/L Blood Urea Nitrogen 20 H 7-18 MG/DL Creatinine 1.00 0.60-1.30 MG/DL Estimat Glomerular Filtration Rate 84 BUN/Creatinine Ratio 20 Glucose Level 90 70-105 MG/DL Calcium Level 9.3 8.5-10.1 MG/DL LLE--dressing intact. 2 plus DP pulse with brisk cap refill. Intact DF and PF of toes and ankle. Intact sensation to light touch throughout s/p L KNEE FB removal and I and D WBAT DC home after third Ancef dose Thursday Keflex for ten days regular diet WARD BAIRD MD Feb 15, 2021 07:02
[2021-02-15 07:23] VITALS: BP 145/75
[2021-02-15] MEDS: ceFAZolin INJECTION 1,000 MG in WATER (STERILE) FOR INJECTION 10 ML IV SCH ×2 (07:56→15:45)
--- NOTE | 2021-02-15 09:36 | Anesthesia-General Post-Op ---
General Patient Condition Mental Status/LOC: Same as Preop Cardiovascular: Satisfactory Nausea/Vomiting: Absent Respiratory: Satisfactory Pain: Controlled Complications: Absent Post Op Complications Complications None Follow Up Care/Instructions Patient Instructions None needed. Anesthesia/Patient Condition Patient Condition Patient is doing well, no complaints, stable vital signs, no apparent adverse anesthesia problems. No complications reported per nursing. DAMIÁN GUZMAN CRNA Feb 15, 2021 09:36
[2021-02-15 11:57] VITALS: BP 132/76
[2021-02-15 15:34] VITALS: BP 119/79
[2021-02-15 16:16] VITALS: BP 119/79
== END 2021-02-15 16:44 | disposition home or self-care (01) ==
LOC: EDUNIT# 15:40 → ER 15:42 → SDC 17:14 → 4TH 19:32 → SDC 02-15 16:44
PROVIDERS: ATTEND Orthopaedic Surgery
DX: S80.252A Superficial foreign body, left knee, initial encounter (principal); G47.33 Obstructive sleep apnea (adult) (pediatric); E66.01 Morbid (severe) obesity due to excess calories; Z68.41 Body mass index [BMI] 40.0-44.9, adult; Z79.899 Other long term (current) drug therapy; Z79.891 Long term (current) use of opiate analgesic
CPT/HCPCS: 36415; 73562; 73706; 80048; 85025; 85610; 90471; 90715; 96374; 96375

== ENCOUNTER → 2022-01-01 | Outpatient (CLI) | payer OTHER ==
[~2022-01-01] MED LIST changes: +CATHETER FLUSH 10 ML SYR IV PRN; +HOLD METFORMIN - RECEIVED CONTRAST 20 ML VIAL IV SCH; +IOHEXOL 350 MG/ML 100 ML (OMNIPAQUE 350) VIAL IV ONE; +NS 100 ML (IVPB) BAG IV ONE
--- NOTE | 2022-01-01 19:39 | Diagnostic Imaging Report ---
Procedure: CT abdomen with contrast only. Technique: Multiple contiguous axial images were obtained through the abdomen after the administration of intravenous contrast. Auto Exposure Controls were utilized during the CT exam to meet ALARA standards for radiation dose reduction. Date: January 01, 2022. Indication: 41-year-old male, history of abdominal wall hernia. Abdominal pain. Comparison: CT abdomen and pelvis May 04, 2017. Findings: The visualized portions of the lung bases are clear. There is mild bilateral gynecomastia. The heart is not enlarged. There is no identified pericardial effusion. The liver is unremarkable in size and contour. There is mild diffuse fatty infiltration of the liver. There is a 9 mm low-attenuation lesion in the right lobe of the liver on axial image 71 which is too small to characterize. There is no additional identified liver lesion. The main, right, and left portal veins are patent. The gallbladder surgically absent. There is no biliary ductal dilation. The main pancreatic duct is not abnormally dilated. Unremarkable appearance of the pancreatic parenchyma. The spleen is normal in size. The adrenal glands are unremarkable. Unremarkable appearance of the renal parenchyma. The urinary collecting systems are not distended in their imaged extent. The imaged portions of the intestinal tract are not distended. There is no free intraperitoneal air. There is no drainable fluid collection. There is no free fluid in the abdomen. There is a fat-containing anterior abdominal wall hernia just to the left midline on axial image 104 and adjacent sequential images. There is mild inflammatory stranding in the left anterior abdominal wall subcutaneous tissues without focal fluid collection. The previously noted large broad-based left lateral anterior abdominal wall hernia with herniation of bowel segments is not currently present. There is no acute bony abnormality. Impression: 1. Interval repair of the previously noted broad-based left lateral and anterior abdominal wall hernia with new small fat-containing anterior abdominal wall hernia near this location. No current complication. 2. 9 mm low-attenuation lesion in the right lobe of the liver which is too small to characterize and not well seen on May 04, 2017. This may potentially reflect a new lesion. 3. Mild diffuse fatty infiltration of the liver. 4. Mild bilateral gynecomastia. Dictated by: Dictated on workstation # [id number]
== END ==
LOC: RAD 16:49
PROVIDERS: ATTEND Nurse Practitioner Family
DX: K43.9 Ventral hernia without obstruction or gangrene (principal); K76.0 Fatty (change of) liver, not elsewhere classified; N62 Hypertrophy of breast; Z98.890 Other specified postprocedural states
CPT/HCPCS: 74160

== ENCOUNTER → 2023-04-20 | Outpatient (CLI) | payer OTHER ==
[~2023-04-20] MED LIST changes: -CATHETER FLUSH 10 ML SYR IV PRN; -HOLD METFORMIN - RECEIVED CONTRAST 20 ML VIAL IV SCH; -IOHEXOL 350 MG/ML 100 ML (OMNIPAQUE 350) VIAL IV ONE; +LEVO750T PO; -LEVO750T39 PO; -NS 100 ML (IVPB) BAG IV ONE
--- NOTE | 2023-04-20 10:12 | Diagnostic Imaging Report ---
EXAMINATION: CT abdomen and pelvis without contrast. TECHNIQUE: Multiple contiguous axial images were obtained through the abdomen and pelvis without the use of intravenous contrast. All CT scans use one or more of the following dose optimizing techniques: automated exposure control, MA and/or KvP adjustment based on patient size and exam type or iterative reconstruction. HISTORY: Left lower quadrant abdominal pain. COMPARISON: 01/01/2022. FINDINGS: Lung bases: The lung bases are clear. Solid organs: There is diffuse hypoattenuation of the liver which can be seen with hepatic steatosis. The gallbladder is surgically absent. There is no biliary ductal dilation. Pancreas is normal. Spleen is normal. Adrenal glands are normal. The kidneys are normal without visualized calculus or hydronephrosis. Bowel: The stomach and small bowel are normal without obstruction. Surgical changes of the distal colon. There is scattered colonic diverticulosis. The appendix is normal. Peritoneum: There is no intraperitoneal free fluid or free air. No suspicious lymphadenopathy. Vasculature: Normal without aneurysm. Musculoskeletal: No suspicious osseous lesion or compression fracture. Surgical changes of the left anterior abdominal wall. There is a small fat-containing hernia or wall defect measuring 2.8 cm. Pelvis: The prostate gland is normal. The urinary bladder is normal. IMPRESSION: 1. No acute abnormality in the abdomen or pelvis. 2. Hepatic steatosis. 3. Colonic diverticulosis without findings of diverticulitis. Dictated by: Dictated on workstation # [id number]
== END ==
LOC: RAD 07:45
PROVIDERS: ATTEND Nurse Practitioner Family
DX: K76.0 Fatty (change of) liver, not elsewhere classified (principal); K57.90 Diverticulosis of intestine, part unspecified, without perforation or abscess without bleeding
CPT/HCPCS: 74176

== ENCOUNTER 2023-05-04 05:33 | Outpatient (CLI) | payer OTHER ==
[~2023-05-04] VITALS: Ht 172.7 cm; Wt 273.5 kg
[2023-05-04] MEDS ORDERED: SULF1TAB38 PO (10:30)
[2023-05-06] MEDS ORDERED: ACHD5005 PO (15:03)
== END 2023-05-04 13:34 | disposition home or self-care (01) ==
LOC: PREOP 05:33
PROVIDERS: ATTEND Surgery
DX: Z01.818 Encounter for other preprocedural examination (principal)